=== PATIENT | female | born 1945 | race Caucasian/White ===

== ENCOUNTER 2020-11-20 13:55 | Outpatient (CLI) | payer MEDICARE, SELFPAY ==
--- NOTE | ~2020-11-20 | XR_ITS ---
XR wrist LT min 3V DATE: 11/20/2020 15:03 INDICATION: Left wrist pain TECHNIQUE: 4 views COMPARISON: None FINDINGS: There is osteopenia. No fracture or dislocation, periosteal reaction or bone destruction. There is osteoarthritic change at the first carpometacarpal and third metacarpophalangeal joints and to a lesser extent fourth metacarpophalangeal joint. IMPRESSION: Polyarticular osteoarthritic arthritis Osteopenia Reviewed, dictated and finalized at location B. CTOR OF PUBLICATIONS
--- NOTE | ~2020-11-20 | XR_ITS ---
XR hand RT min 3V DATE: 11/20/2020 15:03 INDICATION: Pain and swelling TECHNIQUE: 3 views of right hand COMPARISON: None FINDINGS: Diffuse osteopenia. No fracture or dislocation, periosteal reaction or bone destruction. There is polyarticular osteoarthritis involving particularly the first carpometacarpal and third meta carpal phalangeal joints, with involvement of the remaining metacarpophalangeal joints and multiple i nterphalangeal joints including particularly the first digit and the proximal and distal interphalang eal joints of the second and fifth digits. IMPRESSION: Polyarticular osteoarthritic arthritis Osteopenia Reviewed, dictated and finalized at location B. ITY INSTRUCTOR
--- NOTE | ~2020-11-20 | XR_ITS ---
XR knee RT 3V DATE: 11/20/2020 15:03 INDICATION: Right knee pain TECHNIQUE: [place], AP and lateral views COMPARISON: None FINDINGS: Moderate osteopenia. There is mild loss of joint knee joint space and mild periarticular spurring at the medial compartmen t consistent with osteoarthritis. No fracture, dislocation, joint effusion. No periosteal reaction or bone destruction. IMPRESSION: Osteopenia Osteoarthritis involving primarily the medial compartment Reviewed, dictated and finalized at location B. MANAGER
--- NOTE | ~2020-11-20 | XR_ITS ---
XR hand LT min 3V DATE: 11/20/2020 15:03 INDICATION: Left hand pain TECHNIQUE: 3 views COMPARISON: None FINDINGS: Moderate osteopenia. There is osteoarthritic change at the first carpometacarpal and particularly the third metacarpophala ngeal and to a lesser extent fourth metacarpophalangeal joints. Osteoarthritic changes are noted at m ultiple interphalangeal joints as well. No fracture, dislocation, periosteal reaction or bone destruction. No erosive change or chondrocalcin osis is detected. IMPRESSION: Polyarticular osteoarthritis Osteopenia Reviewed, dictated and finalized at location B. L CLEANER
--- NOTE | ~2020-11-20 | XR_ITS ---
XR wrist RT min 3V DATE: 11/20/2020 15:03 INDICATION: Right wrist pain TECHNIQUE: 4 views COMPARISON: None FINDINGS: There is osteoarthritic change at the first carpometacarpal joint and particularly the thir d metacarpophalangeal joint. Diffuse osteopenia. No fracture or dislocation, periosteal reaction or bone destruction is detected. IMPRESSION: Osteopenia Osteoarthritis Reviewed, dictated and finalized at location B. LE MAKER IMPRESSION: Osteopenia Osteoarthritis
--- NOTE | ~2020-11-20 | XR_ITS ---
XR knee LT 3V DATE: 11/20/2020 15:03 INDICATION: Left knee pain TECHNIQUE: [place], AP and lateral views COMPARISON: None FINDINGS: There is distention of the suprapatellar bursa consistent with joint effusion. There is mild particular spurring at the patellofemoral and medial and lateral compartments. Mild crystal nt space narrowing at the patellofemoral and to a lesser extent medial compartments. Moderate osteopenia. No fracture, dislocation, periosteal reaction or bone destruction. No radiopaque intra-articular loose body or chondrocalcinosis. IMPRESSION: Knee joint effusion Mild to moderate tricompartment osteoarthritis Reviewed, dictated and finalized at location B. PUMP OPERATOR
--- NOTE | ~2020-11-20 | XR_ITS ---
XR_CERV2-3V_CR DATE: 11/20/2020 15:03 INDICATION: Neck pain and swelling TECHNIQUE: AP, open-mouth, lateral views COMPARISON: None FINDINGS: There is reversal of cervical curvature. C1 and C2 are normally aligned and the odontoid process is intact. There is approximately 1.8 mm anterolisthesis at C2-3. Mild degenerative disease at C3-4. Moderate degenerative disc disease and minimal retrolisthesis at C4-5. Moderately severe degenerative disc disease and mild retrolisthesis at C5-6. Moderately severe degenerative disc disease at C6-7. Moderate degenerative disease at C7-T1. There is degenerative change at the apophyseal joints throughout the cervical spine. There is promine nt uncovertebral joint spurring of the mid and lower cervical spine. Elongated C7 transverse processes, especially on the left. IMPRESSION: Reversal of cervical curvature Extensive degenerative change Reviewed, dictated and finalized at Location A. Reviewed, dictated and finalized at location B. DRIER
[2020-11-20 14:22] LABS: Basophils Absolute Auto 0.03 K/mm3 (0.00-0.10); Basophils Percent Auto 0.5 % (0.0-1.0); Eosinophils Absolute Auto 0.06 K/mm3 (0.02-0.50); Hematocrit 31.1 % (35.0-42.0); Hemoglobin 10.5 g/dL (11.7-13.8); Immature Granulocyte Absolute 0.02 K/mm3 (0.00-0.00); Immature Granulocyte Percent A 0.3 % (0.0-0.0); Lymphocytes Absolute Auto 0.59 K/mm3 (1.10-4.50); Lymphocytes Percent Auto 9.5 % (18.0-42.0); Mean Corpuscular HGB Conc 33.8 g/dL (32.0-36.0); Mean Corpuscular Hemoglobin 28.7 pg (27.0-31.0); Mean Platelet Volume 9.9 fl (9.2-11.8); Monocytes Absolute Auto 0.59 K/mm3 (0.10-0.90); Monocytes Percent Auto 9.5 % (2.0-11.0); Neutrophils Absolute Auto 4.9 K/mm3 (1.7-7.2); Neutrophils Percent Auto 79.2 % (50.0-70.0); Platelet Count Result 258 K/mm3 (150-420); Red Blood Count 3.66 M/mm3 (4.20-5.40); Red Cell Distribution Width 12.5 % (11.6-14.4); White Blood Count 6.2 K/mm3 (4.8-10.8)
[2020-11-20 14:26] LABS: Add Urine Microscopic? YES; Appearance Urine Clear (Clear); Bilirubin Urine Negative (Negative); Blood Urine 1+ (Negative); Color Urine Yellow (Yellow); Glucose Urine UA Negative (Negative); Ketones Urine Negative (Negative); Leukocyte Esterase Ur Negative (Negative); Nitrate Urine Negative (Negative); Protein Urine Negative (Negative); Urobilinogen Urine 0.2 mg/dL (0.2-1.0)
[2020-11-20 14:32] LABS: RBC Urine 0-2 /hpf (0-2); Squamous Epithelial Cell Urine Rare /hpf (Few); WBC Urine 0-3 /hpf (0-3)
[2020-11-20 14:33] LABS: Bacteria Urine Trace /hpf
[2020-11-20 14:58] LABS: Rheumatoid Factor Screen Negative (Negative)
[2020-11-20 15:15] LABS: Alanine Aminotransferase 14 U/L (14-59); Albumin Level 3.6 g/dL (3.4-5.0); Alkaline Phosphatase 83 U/L (46-116); Anion Gap 10 mmol/L (8-16); Aspartate Amino Transferase 15 U/L (15-37); Bilirubin,Total 0.3 mg/dL (0.00-1.00); Blood Urea Nitrogen 16 mg/dL (7-18); CRP 7.3 mg/dL (0.0-0.9); Carbon Dioxide 28 mmol/L (21-32); Chloride 96 mmol/L (98-108); Estimated Glomerular Filt Rate > 60; Free T3 2.32 pg/mL (2.18-3.98); Free T4 Free Thyroxine 1.06 ng/dL (0.76-1.46); Glucose 104 mg/dL (70-99); Osmolality Calculated 279 mOsm/kg (285-295); Potassium 4.6 mmol/L (3.5-5.1); Sodium 134 mmol/L (136-145); Thyroid Stimulating Hormone 0.83 uIU/mL (0.36-3.74); Total Protein 7.1 g/dL (6.4-8.2); Uric Acid 3.1 mg/dL (2.6-6.0)
[2020-11-20 15:24] LABS: Erythrocyte Sedimentation Rate 50 mm/hr (0-20)
[2020-11-20 16:44] LABS: Immature Reticulocyte Fraction 11.4 % (2.0-16.52); Reticulocyte Percent 1.25 % (0.50-1.50); Reticulocytes Absolute 0.05 M/mm3 (0.02-0.1)
[2020-11-20 17:19] LABS: Ferritin 206 ng/mL (8-252); Iron 22 ug/dL (50-170); Percent Iron Saturation 7 % (12-57); Vitamin B12 336 pg/mL (193-986)
[2020-11-23 07:21] LABS: Red Blood Cell Folate 994 ng/mL RBC (>280)
[2020-11-23 11:21] LABS: Anti Cyclic Citrullinated Pept 23 Units (<20)
[2020-11-23 20:34] LABS: Lyme Disease Ab (IgM), Blot Positive (Negative); Lyme Disease Ab(IgG), Blot Negative (Negative)
[2020-11-27 21:10] LABS: EBV Nuclear Ab Antibody <18.00 U/mL (<18.00); EBV Nuclear Ab Interpretation Negative; EBV Virus Capsid Ag IgG Ab <18.00 U/mL (<18.00); EBV Virus Capsid Ag IgM Ab <36.00 U/mL (<36.00)
== END 2020-11-20 13:56 | disposition home or self-care (01) ==
PROVIDERS: PCP Internal Medicine; Visit Provider Internal Medicine
DX: M25.562 Pain in left knee (principal); M25.561 Pain in right knee; M25.532 Pain in left wrist; M25.531 Pain in right wrist; M25.542 Pain in joints of left hand; M25.541 Pain in joints of right hand; M79.89 Other specified soft tissue disorders; M54.9 Dorsalgia, unspecified; R53.83 Other fatigue; D64.9 Anemia, unspecified
CPT/HCPCS: 36415; 72040; 73110; 73130; 73562; 80053; 81001; 82607; 82728; 82747; 83540; 83550; 84439; 84443; 84481; 84550; 85025; 85046; 85652; 86038; 86140; 86200; 86430; 86617; 86664; 86665; 86900; 86901

== ENCOUNTER 2020-12-23 15:05 | Outpatient (CLI) | payer MEDICARE, SELFPAY ==
[2020-12-23 15:23] LABS: Basophils Absolute Auto 0.03 K/mm3 (0.00-0.10); Basophils Percent Auto 0.5 % (0.0-1.0); Eosinophils Absolute Auto 0.08 K/mm3 (0.02-0.50); Eosinophils Percent Auto 1.4 % (1.0-6.0); Hematocrit 28.1 % (35.0-42.0); Hemoglobin 9.1 g/dL (11.7-13.8); Immature Granulocyte Absolute 0.02 K/mm3 (0.00-0.00); Immature Granulocyte Percent A 0.4 % (0.0-0.0); Lymphocytes Absolute Auto 0.74 K/mm3 (1.10-4.50); Lymphocytes Percent Auto 13.1 % (18.0-42.0); Mean Corpuscular HGB Conc 32.4 g/dL (32.0-36.0); Mean Corpuscular Hemoglobin 27.2 pg (27.0-31.0); Mean Corpuscular Volume 84.1 fL (78.0-102.0); Mean Platelet Volume 8.4 fl (9.2-11.8); Monocytes Absolute Auto 0.63 K/mm3 (0.10-0.90); Monocytes Percent Auto 11.2 % (2.0-11.0); Neutrophils Absolute Auto 4.1 K/mm3 (1.7-7.2); Neutrophils Percent Auto 73.4 % (50.0-70.0); Platelet Count Result 334 K/mm3 (150-420); Red Blood Count 3.34 M/mm3 (4.20-5.40); Red Cell Distribution Width 12.8 % (11.6-14.4); White Blood Count 5.6 K/mm3 (4.8-10.8)
[2020-12-23 15:25] LABS: Appearance Urine Clear (Clear); Bilirubin Urine Negative (Negative); Color Urine Yellow (Yellow); Glucose Urine UA Negative (Negative); Ketones Urine Trace (Negative); Leukocyte Esterase Ur Trace (Negative); Nitrate Urine Negative (Negative); Protein Urine Negative (Negative); Specific Grav Ur >= 1.030 (1.010-1.020); Urobilinogen Urine 0.2 mg/dL (0.2-1.0); pH Urine 5.5 (5.0-8.0)
[2020-12-23 15:45] LABS: Add Urine Microscopic? YES; Bacteria Urine 2+ /hpf; Blood Urine Trace-Intact (Negative); RBC Urine 0-2 /hpf (0-2); Squamous Epithelial Cell Urine Few /hpf (Few)
[2020-12-23 16:29] LABS: Erythrocyte Sedimentation Rate 60 mm/hr (0-20)
[2020-12-23 17:11] LABS: Alanine Aminotransferase 19 U/L (14-59); Albumin Level 3.2 g/dL (3.4-5.0); Alkaline Phosphatase 79 U/L (46-116); Anion Gap 9 mmol/L (8-16); Aspartate Amino Transferase 20 U/L (15-37); Bilirubin,Total 0.4 mg/dL (0.00-1.00); Blood Urea Nitrogen 17 mg/dL (7-18); CRP 9.6 mg/dL (0.0-0.9); Calcium 8.9 mg/dL (8.5-10.1); Carbon Dioxide 28 mmol/L (21-32); Chloride 96 mmol/L (98-108); Creatine Kinase 39 U/L (26-192); Estimated Glomerular Filt Rate > 60; Ferritin 271 ng/mL (8-252); Glucose 86 mg/dL (70-99); Iron 19 ug/dL (50-170); Osmolality Calculated 276 mOsm/kg (285-295); Percent Iron Saturation 7 % (12-57); Potassium 4.7 mmol/L (3.5-5.1); Sodium 133 mmol/L (136-145); Total Protein 6.9 g/dL (6.4-8.2)
[2020-12-25 21:01] LABS: Lyme Disease Ab (IgM), Blot Negative (Negative); Lyme Disease Ab(IgG), Blot Negative (Negative)
[2020-12-26 21:10] LABS: Aldolase 3.5 U/L (<=8.1)
[2020-12-30 09:10] LABS: Cyclic Citrullinated Peptide <16
== END 2020-12-23 15:06 | disposition home or self-care (01) ==
LOC: CHSLAB 15:07
PROVIDERS: PCP Internal Medicine; Visit Provider Internal Medicine
DX: I48.92 Unspecified atrial flutter (principal); M25.50 Pain in unspecified joint; D50.9 Iron deficiency anemia, unspecified
CPT/HCPCS: 36415; 80053; 81001; 82085; 82550; 82728; 83540; 83550; 85025; 85652; 86140; 86617

== ENCOUNTER 2020-12-25 10:53 | Outpatient (CLI) | payer MEDICARE, SELFPAY ==
[2020-12-25 10:59] LABS: Occult Blood Negative (Negative)
== END 2020-12-25 10:54 | disposition home or self-care (01) ==
LOC: CHSLAB 10:54
PROVIDERS: PCP Internal Medicine; Visit Provider Internal Medicine
DX: D50.9 Iron deficiency anemia, unspecified (principal)
CPT/HCPCS: 82272

== ENCOUNTER 2020-12-26 09:15 | Outpatient (CLI) | payer MEDICARE, SELFPAY ==
--- NOTE | ~2020-12-26 | CT_ITS ---
EXAMINATION: CT chest abdomen pelvis w con EXAM DATE: 12/26/2020 09:45 INDICATION: Weight loss, anemia, fatigue. TECHNIQUE: Spiral CT of the chest, abdomen and pelvis was performed following intravenous injection o f 100 mL Omnipaque 350. Axial, coronal and sagittal images were reviewed. Coronal maximum intensity pixel images of chest reviewed. The dose-length product (DLP) for this examination was 348.45 mGy-c m. The exposure was tailored according to patient size (auto mA exposure control), and iterative rec onstruction (ASIR) was used as additional dose reduction technique. There is no prior study for doris singh. FINDINGS: CHEST: There is 4 mm right middle lobe nodule, axial image 78. Some biapical nodular densities likel y scarring. There is moderate hyperinflation. Mild emphysema. There are no pleural or pericardial ef fusions. Tracheobronchial tree is patent. There is no mediastinal, hilar or axillary lymphadenopa thy. There is no pneumothorax. There is moderate cardiomegaly. There is mild coronary arterial c alcification, arterial sclerosis. ABDOMEN PELVIS: There is hepatomegaly. Spleen is normal in size. Pancreas and adrenal glands are unre markable. Gallbladder is unremarkable. No biliary obstruction. Portal and splenic veins are patent . Kidneys enhance symmetrically. There is no hydronephrosis. The uterus is anteverted and morphol ogically normal. There are dilated bilateral gonadal veins, larger on the left, could indicate pelvic congestion syndrome. The bladder is unremarkable. There is no retroperitoneal or pelvic lymphadeno xu. There is mild scattered arteriosclerotic disease. The appendix is not positively visualized. There is no pericecal inflammatory change to suggest appe ndicitis. There is mild scattered colonic diverticulosis. There is no adjacent inflammatory change t o suggest diverticulitis. The stomach and small bowel are unremarkable. There is expected amount of colonic stool. No free intraperitoneal gas. There are no osteoblastic or osteolytic lesions ident ified. There is mild lumbar dextroscoliosis. IMPRESSION: 1. Right middle lobe 4 mm nodule most likely postinfectious. Optional one-year follow-up CT. 2. Dilated gonadal veins, can be seen with pelvic congestion syndrome. 3. Moderate hyperinflation. Mild emphysema. 4. Moderate cardiomegaly. 5. Mild colonic diverticulosis. 6. Hepatomegaly. Reviewed, dictated and finalized at location A.
== END 2020-12-26 09:16 | disposition home or self-care (01) ==
LOC: CHSIMG 09:16
PROVIDERS: PCP Internal Medicine; Visit Provider Internal Medicine
DX: R63.4 Abnormal weight loss (principal); K57.30 Diverticulosis of large intestine without perforation or abscess without bleeding; R16.0 Hepatomegaly, not elsewhere classified; I51.7 Cardiomegaly; R91.1 Solitary pulmonary nodule
CPT/HCPCS: 71260; 74177; Q9967

== ENCOUNTER 2020-12-31 12:29 | Outpatient (CLI) | payer MEDICARE, SELFPAY ==
[2020-12-31] MEDS: IRON SUCROSE COMPLEX 300 MG in SODIUM CHLORIDE 0.9% IV 250 ML 125 MG IVPB (13:35)
[2020-12-31 13:44] VITALS: BP 114/69; PULSE 72; RESP 14; TEMP 36.3; O2SAT 98
--- NOTE | 2020-12-31 15:12 | PC.NURSE ---
infusion complete, IV site discontinued at this time, site clear, ambulatory on discharge
== END 2020-12-31 12:30 | disposition home or self-care (01) ==
LOC: CHSTREATRM 12:31
PROVIDERS: PCP Internal Medicine; Visit Provider Internal Medicine
DX: D50.9 Iron deficiency anemia, unspecified (principal)
CPT/HCPCS: 96365; 96366; J1756; J7050

== ENCOUNTER 2021-01-07 10:42 | Outpatient (CLI) | payer MEDICARE, SELFPAY ==
[2021-01-07 11:17] VITALS: BP 120/65; PULSE 72; RESP 14; TEMP 36.1; O2SAT 99
[2021-01-07] MEDS: IRON SUCROSE COMPLEX 300 MG in SODIUM CHLORIDE 0.9% IV 235 ML 125 MG IVPB (11:22)
--- NOTE | 2021-01-07 13:39 | PC.NURSE ---
Patient tolerated #2 of 3 of IV Venofer infusion. No concerns voiced. Safe exit of hospital. Will return next Wednesday01/15/21.
== END 2021-01-07 10:43 | disposition home or self-care (01) ==
LOC: CHSTREATRM 10:44
PROVIDERS: PCP Internal Medicine; Visit Provider Internal Medicine
DX: D50.9 Iron deficiency anemia, unspecified (principal)
CPT/HCPCS: 96365; 96366; J1756; J7050

== ENCOUNTER 2021-01-15 13:30 | Outpatient (CLI) | payer MEDICARE, SELFPAY ==
--- NOTE | 2021-01-15 13:40 | PC.NURSE ---
Here for OP infusion
[2021-01-15] MEDS: IRON SUCROSE COMPLEX 300 MG in SODIUM CHLORIDE 0.9% IV 250 ML 125 MG IVPB (14:07)
== END 2021-01-15 13:31 | disposition home or self-care (01) ==
LOC: CHSTREATRM 13:32
PROVIDERS: PCP Internal Medicine; Visit Provider Internal Medicine
DX: D50.9 Iron deficiency anemia, unspecified (principal)
CPT/HCPCS: 96365; 96366; J1756; J7050

== ENCOUNTER 2021-01-22 13:31 | Outpatient (CLI) | payer MEDICARE, SELFPAY ==
[2021-01-22 13:40] LABS: Basophils Absolute Auto 0.02 K/mm3 (0.00-0.10); Basophils Percent Auto 0.3 % (0.0-1.0); Eosinophils Absolute Auto 0.06 K/mm3 (0.02-0.50); Eosinophils Percent Auto 0.9 % (1.0-6.0); Hematocrit 29.7 % (35.0-42.0); Hemoglobin 9.3 g/dL (11.7-13.8); Immature Granulocyte Absolute 0.04 K/mm3 (0.00-0.00); Immature Granulocyte Percent A 0.6 % (0.0-0.0); Lymphocytes Absolute Auto 0.55 K/mm3 (1.10-4.50); Mean Corpuscular HGB Conc 31.3 g/dL (32.0-36.0); Mean Corpuscular Hemoglobin 26.3 pg (27.0-31.0); Mean Corpuscular Volume 84.1 fL (78.0-102.0); Monocytes Absolute Auto 0.51 K/mm3 (0.10-0.90); Monocytes Percent Auto 7.4 % (2.0-11.0); Neutrophils Absolute Auto 5.7 K/mm3 (1.7-7.2); Neutrophils Percent Auto 82.8 % (50.0-70.0); Platelet Count Result 412 K/mm3 (150-420); Red Blood Count 3.53 M/mm3 (4.20-5.40); Red Cell Distribution Width 15.3 % (11.6-14.4); White Blood Count 6.9 K/mm3 (4.8-10.8)
[2021-01-22 14:57] LABS: Iron 18 ug/dL (50-170); Percent Iron Saturation 7 % (12-57)
[2021-01-22 15:25] LABS: Ferritin > 1000 ng/mL (8-252)
== END 2021-01-22 13:32 | disposition home or self-care (01) ==
LOC: CHSLAB 13:33
PROVIDERS: PCP Internal Medicine; Visit Provider Internal Medicine
DX: D50.9 Iron deficiency anemia, unspecified (principal)
CPT/HCPCS: 36415; 82728; 83540; 83550; 85025

== ENCOUNTER 2021-05-21 12:16 | Outpatient (CLI) | payer MEDICARE, SELFPAY ==
[2021-05-21 12:32] LABS: Basophils Absolute Auto 0.02 K/mm3 (0.00-0.10); Basophils Percent Auto 0.2 % (0.0-1.0); Hematocrit 35.4 % (35.0-42.0); Hemoglobin 10.9 g/dL (11.7-13.8); Immature Granulocyte Absolute 0.09 K/mm3 (0.00-0.00); Immature Granulocyte Percent A 0.7 % (0.0-0.0); Immature Reticulocyte Fraction 8.4 % (2.0-16.52); Lymphocytes Absolute Auto 0.51 K/mm3 (1.10-4.50); Lymphocytes Percent Auto 4.1 % (18.0-42.0); Mean Corpuscular HGB Conc 30.8 g/dL (32.0-36.0); Mean Corpuscular Hemoglobin 24.7 pg (27.0-31.0); Mean Corpuscular Volume 80.3 fL (78.0-102.0); Mean Platelet Volume 8.9 fl (9.2-11.8); Monocytes Absolute Auto 0.38 K/mm3 (0.10-0.90); Monocytes Percent Auto 3.1 % (2.0-11.0); Neutrophils Absolute Auto 11.4 K/mm3 (1.7-7.2); Neutrophils Percent Auto 91.9 % (50.0-70.0); Platelet Count Result 308 K/mm3 (150-420); Red Blood Count 4.41 M/mm3 (4.20-5.40); Red Cell Distribution Width 22.4 % (11.6-14.4); Reticulocyte Hemoglobin Conten 37.7 pg (28.0-35.0); Reticulocyte Percent 1.41 % (0.50-1.50); Reticulocytes Absolute 0.06 M/mm3 (0.02-0.1); White Blood Count 12.4 K/mm3 (4.8-10.8)
[2021-05-21 13:27] LABS: Alanine Aminotransferase 30 U/L (14-59); Albumin Level 3.8 g/dL (3.4-5.0); Alkaline Phosphatase 73 U/L (46-116); Anion Gap 8 mmol/L (8-16); Aspartate Amino Transferase 13 U/L (15-37); Bilirubin,Total 0.3 mg/dL (0.00-1.00); Blood Urea Nitrogen 23 mg/dL (7-18); Calcium 9.1 mg/dL (8.5-10.1); Carbon Dioxide 29 mmol/L (21-32); Chloride 102 mmol/L (98-108); Estimated Glomerular Filt Rate > 60; Ferritin 369 ng/mL (8-252); Glucose 95 mg/dL (70-99); Iron 74 ug/dL (50-170); Osmolality Calculated 291 mOsm/kg (285-295); Potassium 4.3 mmol/L (3.5-5.1); Sodium 139 mmol/L (136-145); Total Protein 7.4 g/dL (6.4-8.2)
[2021-05-23 14:49] LABS: Free T3 1.88 pg/mL (2.18-3.98); Free T4 Free Thyroxine 0.87 ng/dL (0.76-1.46)
== END 2021-05-21 12:17 | disposition home or self-care (01) ==
LOC: CHSLAB 12:18
PROVIDERS: PCP Internal Medicine; Visit Provider Internal Medicine
DX: D50.9 Iron deficiency anemia, unspecified (principal); M05.9 Rheumatoid arthritis with rheumatoid factor, unspecified; R63.4 Abnormal weight loss
CPT/HCPCS: 36415; 80053; 82728; 83540; 84439; 84443; 84481; 85025; 85046

== ENCOUNTER 2021-05-26 12:32 | Outpatient (CLI) | payer MEDICARE, SELFPAY ==
--- NOTE | ~2021-05-26 | DEXA_ITS ---
Bone Density Report Name: Enedina Mehta Age: 76 Sex: Female Ethnicity: White Date of : 1945 Indication: osteopenia; height loss; rheumatoid arthritis; secondary osteoporosis; Referring Provider: Eugenia Spear Study: Bone densitometry was performed. Exam Date: May 26, 2021 Accession number: [id number] Bone Density: Region BMD T-score Z-score Classification AP Spine(L1-L4) 0.865 -1.7 0.9 Osteopenia Femoral Neck (Left) 0.662 -1.7 0.5 Osteopenia Total Hip (Left) 0.690 -2.1 -0.1 Osteopenia Femoral Neck (Right) 0.603 -2.2 0.0 Osteopenia Total Hip (Right) 0.676 -2.2 -0.2 Osteopenia Femoral Neck Mean 0.632 -2.0 0.3 Osteopenia Total Hip Mean 0.683 -2.1 -0.2 Osteopenia World Health Organization criteria for BMD impression classify patients as: Normal (T-score at or above -1.0), Osteopenia (T-score between -1.0 and -2.5), or Osteoporosis (T-score at or below -2.5). 10-year Fracture Risk(1): Major Osteoporotic Fracture 17% Hip Fracture 8.3% Reported Risk Factors: [place] (), Neck BMD=0.603, BMI=17.3, smoking, rheumatoid arthritis, secondary osteoporosis (1) FRAX(R) Version 3.08. Fracture probability calculated for an untreated patient. Fracture probability may be lower if the patient has received treatment. Previous Exams: Region Exam Age BMD T-score BMD Change BMD Change Date g/cm2 vs Baseline vs Previous AP Spine (L1-L4) 05/26/2021 76 0.865 -1.7 -0.143 (-14.2% -0.125 (-12.6% 01/20/2019 73 0.990 -0.5 -0.019 (-1.9%) 0.000 (0.0%) 01/13/2017 71 0.990 -0.5 -0.018 (-1.8%) -0.010 (-1.0%) 11/28/2012 67 1.000 -0.4 -0.009 (-0.8%) -0.008 (-0.8%) 10/22/2008 63 1.009 -0.3 Total Hip(Left) 05/26/2021 76 0.690 -2.1 -0.115 (-14.3% -0.085 (-11.0% 01/20/2019 73 0.775 -1.4 -0.030 (-3.7%) 0.007 (0.9%) 01/13/2017 71 0.768 -1.4 -0.037 (-4.5%) 0.007 (0.9%) 12/21/2014 69 0.762 -1.5 -0.043 (-5.4%) -0.024 (-3.0%) 11/28/2012 67 0.785 -1.3 -0.020 (-2.4%) -0.020 (-2.4%) 10/22/2008 63 0.805 -1.1 Total Hip(Right) 05/26/2021 76 0.676 -2.2 -0.116 (-14.7% -0.057 (-7.8%) 01/20/2019 73 0.733 -1.7 -0.059 (-7.5%) -0.007 (-0.9%) 12/21/2014 69 0.740 -1.7 -0.052 (-6.6%) -0.035 (-4.5%) 11/28/2012 67 0.775 -1.4 -0.017 (-2.2%) -0.017 (-2.2%) 10/22/2008 63 0.792 -1.2 *Denotes significance at 95% confidence level, LSC for AP Spine = 0.022 g/cm2, LSC for Total Hip = 0.027 g/cm2 # Denotes dissimilar scan types or analysis methods Clinical Info
== END 2021-05-26 12:33 | disposition home or self-care (01) ==
LOC: CHSIMG 12:33
PROVIDERS: PCP Internal Medicine; Visit Provider Internal Medicine
DX: M81.0 Age-related osteoporosis without current pathological fracture (principal)
CPT/HCPCS: 77080

== ENCOUNTER 2021-11-24 13:57 | Outpatient (CLI) | payer MEDICARE, SELFPAY ==
[2021-11-24 15:24] LABS: Basophils Percent Auto 0.4 % (0.2-1.2); Eosinophils Percent Auto 0.1 % (0-4.4); Hematocrit 33.1 % (37.0-47.0); Hemoglobin 10.7 g/dL (12.0-15.0); Immature Granulocyte Absolute 0.03 K/mm3 (0.00-0.031); Immature Granulocyte Percent A 0.4 % (0-0.5); Lymphocytes Absolute Auto 0.56 K/mm3 (0.9-3.2); Lymphocytes Percent Auto 7.2 % (18.3-44.2); Mean Corpuscular HGB Conc 32.3 g/dl (32-36); Mean Corpuscular Volume 89.7 fl (80-100); Mean Platelet Volume 8.5 fl (7.4-10.4); Monocytes Absolute Auto 0.6 K/mm3 (0.1-0.6); Monocytes Percent Auto 7.3 % (2.6-8.5); Neutrophils Absolute Auto 6.6 K/mm3 (1.3-6.7); Neutrophils Percent Auto 84.6 % (45.5-73.1); Platelet Count Result 293 k/mm3 (150-375); Red Blood Count 3.69 M/mm3 (4.2-5.4); Red Cell Distribution Width 13.6 % (11.5-14.5); White Blood Count 7.8 K/mm3 (4.5-10.0)
[2021-11-24 15:38] LABS: Albumin Level 4.5 g/dL (3.5-5.1); Anion Gap 10 mmol/L (8-16); Blood Urea Nitrogen 16 mg/dL (7-17); Calcium 9.7 mg/dL (8.4-10.2); Carbon Dioxide 26 mmol/L (22-30); Chloride 100 mmol/L (98-107); Estimated Glomerular Filt Rate > 60; Glucose 107 mg/dL (65-110); Potassium 4.4 mmol/L (3.4-5.0); Sodium 136 mmol/L (137-145)
[2021-11-24 15:39] LABS: Hemoglobin A1C 5.4 % (<5.7)
[2021-11-24 15:41] LABS: Urine Cotinine NEGATIVE
== END 2021-11-24 13:58 | disposition home or self-care (01) ==
LOC: ANHSURGERY 14:01
PROVIDERS: PCP Internal Medicine; Visit Provider Orthopaedic Surgery
DX: Z01.812 Encounter for preprocedural laboratory examination (principal); M16.12 Unilateral primary osteoarthritis, left hip; Z51.81 Encounter for therapeutic drug level monitoring; Z79.899 Other long term (current) drug therapy
CPT/HCPCS: 80048; 80307; 82040; 83036; 85025; 87070

== ENCOUNTER 2021-12-02 17:18 | Outpatient (CLI) | payer MEDICARE, SELFPAY ==
[2021-12-02 18:05] LABS: Ferritin 346 ng/mL (8-252); Iron 14 ug/dL (50-170)
== END 2021-12-02 17:19 | disposition home or self-care (01) ==
LOC: CHSLAB 17:20
PROVIDERS: PCP Internal Medicine; Visit Provider Internal Medicine
DX: D50.9 Iron deficiency anemia, unspecified (principal)
CPT/HCPCS: 36415; 82728; 83540

== ENCOUNTER 2021-12-05 10:09 | Outpatient (CLI) | payer MEDICARE, SELFPAY ==
[2021-12-05] MEDS: IRON SUCROSE COMPLEX 500 MG in SODIUM CHLORIDE 0.9% IV 250 ML 62.5 MG IVPB (10:20)
[2021-12-05 10:25] VITALS: BP 128/65; PULSE 68; RESP 14; TEMP 36.6; O2SAT 97
[2021-12-05 10:28] VITALS: BMI 19.3
--- NOTE | 2021-12-05 13:42 | PC.NURSE ---
Patient here for IV Venofer infusion. Education on med given. No concerns voiced. Has had past infusions of Venofer in the past. IV Venofer infusion administered over 4 hours. SEE MAR. Tolerated well.
--- NOTE | 2021-12-05 14:09 | PC.NURSE ---
Safe exit of hospital.
== END 2021-12-05 10:10 | disposition home or self-care (01) ==
LOC: CHSTREATRM 10:12
PROVIDERS: PCP Internal Medicine; Visit Provider Internal Medicine
DX: D50.9 Iron deficiency anemia, unspecified (principal)
CPT/HCPCS: 96365; 96366; J1756; J7050

== ENCOUNTER 2021-12-08 00:34 | Day surgery (SDC) | payer MEDICARE, SELFPAY ==
[2021-11-24 14:07] VITALS: BMI 19.3
--- NOTE | 2021-11-24 14:30 | PC.NURSE ---
Report to the Outpatient Waiting Room, entrance under the green pavilion located off [facility], at time __0600 on date __12/08/21 . OR Time: 729 . - You and your visitor will be asked a series of questions to screen for COVID 19 for your protection. - A mask is required within the hospital. Preoperative COVID Testing Requirements: No COVID Test needed if: (proof is required; if not received patient will have Rapid Test prior to entry) - Patient has received COVID Vaccine at least 14 days prior to procedure date or - Patient has positive COVID test result within last 90 days of surgery date. COVID Test needed if above criteria is not met If not COVID vaccinated a COVID test must be conducted within 72 hours of surgery and patient is asked to isolate self from time of testing until procedure. You will go to the [facility] for your COVID testing. The [facility] site is located at the corner of [address] [facility]. You will only be called if COVID results are positive and your surgeon may reschedule your elective surgery date. Patients may have clear liquids (water, carbonated beverages, clear teas, apple juice) until 3 hours prior to surgery with a maximum of 20 ounces. - No food from midnight until time of surgery - Infants may have breast milk until 4 hours before surgery, formula 6 hours prior to surgery. - Children will be allowed to drink immediately following surgery. If applicable, please bring a bottle or sippy cup to assist with drinking. Juice, water, soda, and popsicles are readily available. For infants on formula, please bring formula the day of surgery. Pacifiers are allowed. Take the following medications with a SIP of water the morning of surgery: ___FLECAINIDE,PREDNISONE Medications to discontinue per physician ___PT STATES HOLD ELIQUIS 3 DAYS PRE OP AND ALL VITAMINS AND SUPPLEMENTS 3 DAYS PRE OP Date to take last dose_12/04/21 Please no make-up, nail italian, hairspray, perfume, deodorant, or body powder the day of surgery. No jewelry (including any body piercings) or valuables the day of surgery, leave them at home. Please take a shower or bath the night before, or the morning of, surgery with an antibacterial soap. Wear comfortable, loose fitting clothing. Children are encouraged to wear pajamas. - Jewelry must be removed prior to entering the operating room. Rings and piercings that are not removed may be cut off. - The hospital will not accept responsibility for valuables. - Please leave all valuables, including medications, at home the day of surgery. If you are going home after surgery, a licensed water tanker driver must drive you home. - NO public transportation without another adult. - We recommend that an adult stay with you for 24 hours following discharge. - We also recommend that you do not drive, make important decision, drink alcoholic beverages, or take any drugs that were not prescribed by your health care provider for at least 24 hours after your discharge time. For Pediatric surgeries, we recommend two adults accompany the child home (only one inside the building at this time). One visitor will be allowed to accompany the patient into the hospital. Patients visitor will be instructed to remain with patient at all times or leave the building. We will allow the visitor to come back to the postoperative area when patient is ready. Follow any additional instructions given to you from your surgeon. VERBAL/WRITEN instructions given to __PATIENT and asked if any additional questions and then verbalized understanding. Patient advised to call surgeon office or pre surgery nurse liaison [phone] if any additional questions.
[2021-11-24 14:53] VITALS: BP 121/67; PULSE 101; RESP 18; TEMP 36.6; O2SAT 98
--- NOTE | 2021-12-05 07:37 | PM.IMHP ---
H&P: HPI History of Present Illness Date/Time: 12/05/21 07:37 76-year-old female patient of Dr. Spear, presents today for a left total hip arthroplasty anterior approach. Patient is having worsening symptoms over the course of last year and her left. At this point her symptoms are rather severe. She has pain both with walking as well as lying down in bed. She has history of rheumatoid arthritis and is on medication for this. At this point patient feels that her pain is rather severe on a daily basis. It is affecting her daily life. She does have advanced arthritis in the left hip. She feels this point she is ready to proceed with total hip arthroplasty rather continue nonsurgical treatments. Chief Complaint: Left hip DJD Review of Systems Review of Systems: All systems reviewed & are unremarkable except as noted in HPI and below [facility] Social History Social History (System 05/22/21 @ 08:14 by Michael Aggarwal) Smoking status: Never smoker Additional smoking assessment comments: DENIES ANY FORM OF TOBACCO USE Alcohol intake: never Substance use: never Substance use type: does not use Spiritual care concerns: No Meds Home Medications and Allergies Home Medications Medication Instructions Recorded Confirmed Type apixaban [Eliquis] 5 mg PO BID 01/07/21 11/24/21 History flecainide 100 mg PO Q12H 01/07/21 11/24/21 History acetaminophen [Tylenol Arthritis] 650 mg PO Q12H PRN 11/24/21 11/24/21 History calcium carbonate-vitamin D3 1 tablet PO DAILY 11/24/21 11/24/21 History [Calcium 500 + D (D3)] cholecalciferol (vitamin D3) 25 mcg PO DAILY 11/24/21 11/24/21 History hydroxychloroquine 200 mg PO BID 11/24/21 11/24/21 History prednisone 10 mg PO DAILY 11/24/21 11/24/21 History Allergies Allergy/AdvReac Type Severity Reaction Status Date / Time No Known Allergies Allergy Verified 11/24/21 14:08 Exam Narrative: 76-year-old female alert pleasant. She is 5 ft 4 and 119 lb. Patient walks with a significant limp. While lying supine left leg looks about 15 mm shorter on the right. Her left hip flexes to 110 causing posterior thigh and lateral hip pain. Internal rotation 10? external rotation 20? both causing lateral hip pain. Stinchfield maneuver causes anterior knee pain. She has normal abduction strength in lateral position. No tenderness over the greater trochanter. 2+ dorsalis pedis and posterior tibial artery pulse. Normal sensation left lower extremity. Skin around the hip in groin crease are all normal. Resp: Auscultation: clear to auscultation bilaterally Cardio: Rate: regular rate Rhythm: abnormal rhythm Assessment and Plan Additional Plan 68-year-old female who has advanced arthritis of the right hip with rather severe pain on a daily basis. Again she is fairly miserable and feels this point she is ready to proceed with total hip arthroplasty. Surgical procedures well as the risks and complications were discussed in detail and all questions were answered and we will proceed. Patient has seen the floorworker lasting for pre-surgical clearance due to her history of AFib. She did have stress test done, it showed no ST changes normal hand tray killer function. Ejection fraction was 69% negative EKG portion of the stress test as well. She has been cleared. She will stop her Eliquis 3 days prior to surgery. We will plan to use low-dose Eliquis for the 1st 7 days postop and then resume her 5 mg b.i.d.. Patient will see her primary care doctor for pre-surgical clearance as well. Her nasal swab was negative. Hemoglobin 10.7 platelets were 293. Chem panel is all within normal limits creatinine is 0.60. We will also plan to use p.o. antibiotics postoperatively due to her history of rheumatoid arthritis and being on prednisone and Plaquenil.
--- NOTE | 2021-12-05 13:36 | WPDANESEPPF ---
Anes - Initial Pre Proc Eval Procedure: Operation Date: 12/08/21 07:30 Proposed Procedures p Left Total Hip Arthroplasty, Anterior Approach - Malvin Bose MD Date/Time: 12/05/21 13:36 Surgeon: Malvin Bose MD Pre Op Diagnosis: Severe Arthritis Left Hip Patient Data Age: 76 Gender: F Height: 1.68 m Weight: 54.3 kg Last Vital Signs Temp 97.9 F 11/24/21 14:53 Pulse 101 H 11/24/21 14:53 Resp 18 11/24/21 14:53 BP 121/67 11/24/21 14:53 Pulse Ox 98 11/24/21 14:53 Allergies Allergy/AdvReac Type Severity Reaction Status Date / Time No Known Allergies Allergy Verified 12/08/21 06:05 Home Medications Medication Instructions Recorded Confirmed Type apixaban [Eliquis] 5 mg PO BID 01/07/21 12/08/21 History flecainide 100 mg PO Q12H 01/07/21 12/08/21 History acetaminophen [Tylenol Arthritis] 650 mg PO Q12H PRN 11/24/21 12/08/21 History calcium carbonate-vitamin D3 1 tablet PO DAILY 11/24/21 12/08/21 History [Calcium 500 + D (D3)] cholecalciferol (vitamin D3) 25 mcg PO DAILY 11/24/21 12/08/21 History hydroxychloroquine 200 mg PO BID 11/24/21 12/08/21 History prednisone 10 mg PO DAILY 11/24/21 12/08/21 History Patient hx anesthesia problems: none Family hx anesthesia problems: none Results Review: All pre-operative results and documents have been reviewed as part of the pre-operative evaluation. FOR[facility]LY [facility], [facility] Past Medical History Medical History (Updated 12/05/21 @ 13:35 by Sina Franco MD) Heart disease history of atrial flutter Rheumatoid arthritis Social History Social History (System 05/22/21 @ 08:14 by Michael Aggarwal) Smoking status: Never smoker Additional smoking assessment comments: DENIES ANY FORM OF TOBACCO USE Alcohol intake: never Substance use: never Substance use type: does not use Living arrangements: with family Spiritual care concerns: No Anes - Eval Final PreProcedure Day of Procedure 12/05/21 13:36 Patient weight: normal Heart: irregular rhythm Lungs: clear to auscultation Airway: Mallampati scale class II Neurological: alert and oriented Last oral intake: >/= 8 hours ASA classification: III Emergent: no Anesthetic plan: proceed Anesthesia type and monitoring: general ETT and standard monitoring Results Review: All pre-operative results and documents have been reviewed as part of the pre-operative evaluation. Informed Consent: The patient's anesthetic plan and its attendant risks and benefits were discussed with the patient/family/POA. Questions were solicited and answers provided to the satisfaction of the patient/family/POA.
[2021-12-08] VITALS (17 sets, daily range): BP systolic 126–167; BP diastolic 63–91; PULSE 80–105; RESP 10–20; TEMP 36.3–36.9; O2SAT 93–100
--- NOTE | ~2021-12-08 | XR_ITS ---
EXAMINATION: XR surgery orthopedic EXAM DATE: 12/08/2021 10:55 INDICATION: Left hip arthroplasty anterior approach. TECHNIQUE: Fluoroscopy used during left hip arthroplasty performed by Dr. Malvin Bose MD. Radi ologist was not present for the imaging or procedure. Total fluoroscopic time of 48 seconds. The DA P for this procedure was 0.16 mGym2. A total of 3 images sent to PACS from the exam. FINDINGS: 2 captured frontal images demonstrate left hip arthroplasty hardware in expected position. Correlate with procedure note. IMPRESSION: Fluoroscopy used during left hip arthroplasty. Reviewed, dictated and finalized at location A. NOLOGY SPECIALIST
--- NOTE | ~2021-12-08 | XR_ITS ---
EXAMINATION: XR hip LT 1V w AP pelvis DATE: 12/08/2021 11:30 INDICATION: Left hip arthroplasty. Postop. TECHNIQUE: An anteroposterior view of the pelvis and single view of left hip were obtained. COMPARISON: None. FINDINGS: There is a total left hip arthroplasty in near-anatomic alignment. No fracture. There is mo derate right hip osteoarthritis. Osteitis pubis is noted. There is a surgical drain in the left hip s oft tissues. Soft tissue gas is seen, consistent with recent surgery. IMPRESSION: 1. Total left hip arthroplasty in near-anatomic alignment. 2. Moderate right hip osteoarthritis. Reviewed, dictated and finalized at location A. DOCTORAL RESEARCHER
[2021-12-08] MEDS: ACETAMINOPHEN 500 MG TABLET 1000 MG PO ×2 (06:12→18:07)
[2021-12-08] MEDS: LACTATED RINGERS 1,000 ML 30 ML IV CONT ×2 (06:33→11:16)
[2021-12-08] MEDS: TRANEXAMIC ACID 1,000MG/ISO100 1,000 MG/100 ML BAG 200 MG IVPB (07:00)
--- NOTE | 2021-12-08 07:12 | WPDHPUPDATE1 ---
History and Physical Update Update Date/Time: 12/08/21 07:12 History and Physical has been reviewed, including an updated exam of the patient. There are NO changes in the patient's condition. Risks, benefits, and alternatives have been discussed and questions answered. Patient agrees to proceed with procedure.
--- NOTE | 2021-12-08 07:21 | WPDHPUPDATE1 ---
History and Physical Update Update Date/Time: 12/08/21 07:21 History and Physical has been reviewed, including an updated exam of the patient. There are NO changes in the patient's condition. Risks, benefits, and alternatives have been discussed and questions answered. Patient agrees to proceed with procedure.
[2021-12-08] MEDS: ceFAZolin 2 GM/D5W 50 ML 2 GM/50 ML BAG IVPB (07:30)
[2021-12-08] MEDS: ceFAZolin SODIUM 1 GM VIAL 3 GM IRRIGATION (08:19)
[2021-12-08] MEDS: ceFAZolin SODIUM 1 GM VIAL IV PUSH (10:34)
[2021-12-08] MEDS: TRANEXAMIC ACID 1,000 MG/10 ML AMPUL 1000 MG IV PUSH (10:40)
--- NOTE | 2021-12-08 11:04 | W.PM.PROC2 ---
Procedure Note - Detailed Date of Procedure 12/08/21 Pre-op Diagnosis Severe rheumatoid Arthritis Left Hip Post-op Diagnosis Same Procedure Performed Left total hip arthroplasty direct anterior approach Surgeon Malvin Bose MD Loss Prevention Leader Is Stiven Anesthesia General Description of Procedure Patient was brought to the operating room and general anesthesia was administered. The fever padded boots applied she was transferred to the OSI [place] table and the left hip prepped draped usual fashion. She received weight based vancomycin 2 g of Ancef and tranexamic acid preoperatively. She received 8 mg of Decadron preoperatively. A 10 cm longitudinal incision was made starting 3 cm lateral to the ASIS. Dissection was carried through the subcutaneous fat to the fascia over the tensor fascia nishant which was longitudinally incised. This was elevated off the anterior 1/2 the tensor fascia nishant muscle and the interval between TFL and rectus femoris developed. Crossing branches of the ascending lateral femoral circumflex vessels were isolated ligated with suture and divided. The ileocapsularis was prominent in this patient and was elevated off anterior capsule. The hip was abducted internally rotated and the gluteus minimus elevated off the lateral capsule. Standard inverted T capsulotomy was performed. Femoral neck osteotomy was made according to preoperative templating. The bone was on the softer side. The femoral head was removed measured 49 mm diameter. It was mushroom shaped with large marginal osteophytes. It was eburnated at the top. The acetabulum was exposed. 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 Affect when we made the 1st longitudinal incision in the capsule this material herniated out of the capsular incision and there was a large effusion of clear fluid. We debrided the redundant synovium to the extent possible and the acetabulum was exposed and the residual labrum excised. Fat pad and the fovea was removed showing overgrown osteophytes there. The leg was externally rotated and extended with the table hook in place and we resected the lateral tip of the lateral capsule and exposed the piriformis tendon and conjoined tendon an incision was made at the junction which allowed the piriformis to flip posteriorly and some of the conjoined tendon to recess. With the leg back in the neutral position the acetabulum was exposed. A 44 mm Reamer was used to medialized going through the medial osteophyte over the fovea alternating with curetting the remaining bone there and when we had medialized appropriately we went up to a 47 Reamer. This was medialized under fluoroscopic guidance to the proper position. This gave us reaming to the periphery of the acetabular fossa. The 48 trial was difficult to start to seat. We used the 48 Reamer and just barely reamed the periphery where there was some osteophyte and rim left. The 48 pinnacle cup was chosen and this was impacted and did obtain an excellent Press-Fit and seated fully. This was placed at 40? abduction angle and anteversion so that the cup was just under the anterior acetabular osteophyte that was prominent. This left the shell a few mm proud posterior superiorly. Superior osteophyte was left intact. A 35 mm screw was placed in the ilium which obtained very good purchase and the 32 inner diameter acetabular liner was fully seated. The leg was externally rotated extended and the femur broached to a size 5. We could see the broach did have a little wiggle. We trialed with the +5 neck and found that we had a little bit of extra Shuck I felt. The 5 was broached a little below the osteotomy of the neck. I felt that we could and should lengthen a little bit more. We went up to a size 6 broach which had just a little bit of wiggle so the size 7 broach was seated and this was brought down flush with the neck cut and we tri
[2021-12-08] MEDS: fentaNYL CITRATE INJ (*CRX) 100 MCG/2 ML VIAL 25 MCG IV PUSH ×4 (11:42→12:25)
--- NOTE | 2021-12-08 14:03 | PC.NURSE ---
This patient, Enedina Mehta, was admitted to Medical Room 241-. Patient/family oriented to hospital policies and general routines including ID bracelet, bed and alarms, visiting hours, pain management, procedures, bathroom and other care routines, personal items, smoking policy, room service/diet, and visiting hours. Information on how to activate the Rapid Response Team has been discussed. Patient/Family are encouraged to report perceived risks to care and to ask questions if they do not understand what they are told or what they should do.
[2021-12-08] MEDS: HYDROXYCHLOROQUINE SULFATE 200 MG TABLET PO (17:00)
[2021-12-08] MEDS: oxyCODONE HCL (*CRX) 2.5 MG TAB IR PO ×2 (17:00→20:09)
[2021-12-08] MEDS: ONDANSETRON INJ 4 MG/2 ML VIAL IV PUSH (17:00)
[2021-12-08] MEDS: SENNA/DOCUSATE SODIUM TABLET 2 TAB PO (17:00)
[2021-12-08] MEDS: FAMOTIDINE 20 MG TABLET PO (20:09)
[2021-12-08] MEDS: FLECAINIDE ACETATE 100 MG TABLET PO (20:09)
[2021-12-09] MEDS: oxyCODONE HCL (*CRX) 2.5 MG TAB IR PO ×4 (00:02→12:26)
[2021-12-09] MEDS: ACETAMINOPHEN 500 MG TABLET 1000 MG PO ×3 (00:02→12:26)
[2021-12-09 00:06] VITALS: BP 119/72; PULSE 92; RESP 20; TEMP 36.7; O2SAT 98
[2021-12-09 04:06] VITALS: BP 103/60; PULSE 92; RESP 18; TEMP 37; O2SAT 99
[2021-12-09 05:51] LABS: Basophils Percent Auto 0.2 % (0.2-1.2); Hemoglobin 8.7 g/dL (12.0-15.0); Immature Granulocyte Percent A 0.8 % (0-0.5); Lymphocytes Absolute Auto 0.68 K/mm3 (0.9-3.2); Lymphocytes Percent Auto 5.3 % (18.3-44.2); Mean Corpuscular HGB Conc 32.2 g/dl (32-36); Mean Corpuscular Hemoglobin 28.4 pg (26-34); Mean Corpuscular Volume 88.2 fl (80-100); Mean Platelet Volume 8.4 fl (7.4-10.4); Monocytes Absolute Auto 1.2 K/mm3 (0.1-0.6); Monocytes Percent Auto 9.7 % (2.6-8.5); Neutrophils Absolute Auto 10.7 K/mm3 (1.3-6.7); Platelet Count Result 331 k/mm3 (150-375); Red Blood Count 3.06 M/mm3 (4.2-5.4); Red Cell Distribution Width 13.7 % (11.5-14.5); White Blood Count 12.7 K/mm3 (4.5-10.0)
[2021-12-09 06:09] LABS: Anion Gap 6 mmol/L (8-16); Blood Urea Nitrogen 11 mg/dL (7-17); Calcium 8.4 mg/dL (8.4-10.2); Carbon Dioxide 27 mmol/L (22-30); Chloride 94 mmol/L (98-107); Estimated CRCL calculation 56 ml/min; Estimated Glomerular Filt Rate > 60; Glucose 107 mg/dL (65-110); Potassium 4.1 mmol/L (3.4-5.0); Sodium 127 mmol/L (137-145)
--- NOTE | 2021-12-09 06:30 | PM.PNORT ---
Subjective Subjective Date/Time Seen: 12/09/21 06:30 postop day 1 patient is alert pleasant. She was up yesterday working with physical therapy walking to the restroom multiple times and doing well. Pain is well controlled. Her drain is out. Neurovascularly she is intact. Morning labs were noted. She is mildly anemic with a hemoglobin 8.7. Patient is tolerating the knee medial without any symptoms. Her dressing is dry. We will plan to have patient work with physical therapy today if she continues to do well plan on sending her home later this morning or this afternoon Objective Data Vital Signs Vital Signs: Vital Signs - 24 hr 12/08/21 06:43 12/08/21 11:16 12/08/21 11:30 Temperature 36.5 C 36.5 C Pulse Rate 104 H 99 98 Respiratory Rate 16 14 16 Blood Pressure 165/83 H 156/79 H 164/82 H Pulse Oximetry 100 100 100 12/08/21 11:45 12/08/21 12:00 12/08/21 12:15 Temperature Pulse Rate 97 99 89 Respiratory Rate 20 20 16 Blood Pressure 167/81 H 163/91 H 141/81 H Pulse Oximetry 100 100 99 12/08/21 12:30 12/08/21 12:44 12/08/21 13:00 Temperature Pulse Rate 82 85 84 Respiratory Rate 10 L 12 16 Blood Pressure 139/72 147/69 H 139/74 Pulse Oximetry 97 95 93 12/08/21 13:15 12/08/21 13:30 12/08/21 13:57 Temperature 36.4 C L 36.6 C 36.7 C Pulse Rate 80 94 92 Respiratory Rate 14 14 14 Blood Pressure 138/73 133/69 140/63 Pulse Oximetry 94 97 99 12/08/21 15:06 12/08/21 18:50 12/08/21 19:40 Temperature 36.3 C L 36.9 C 36.4 C L Pulse Rate 103 H 102 H 105 H Respiratory Rate 16 14 20 Blood Pressure 163/83 H 126/64 137/73 Pulse Oximetry 99 100 99 12/08/21 20:00 12/08/21 20:09 12/09/21 00:06 Temperature 36.7 C Pulse Rate 105 H 105 H 92 Respiratory Rate 20 20 Blood Pressure 119/72 Pulse Oximetry 99 98 12/09/21 04:06 Temperature 37.0 C Pulse Rate 92 Respiratory Rate 18 Blood Pressure 103/60 Pulse Oximetry 99 Intake/Output Intake/Output: Intake & Output 12/06/21 12/07/21 12/08/21 12/09/21 23:59 23:59 23:59 23:59 Intake Total 1840 50 Output Total 650 610 Balance 1190 -560 Meds/Results Medications: Active Medications Generic Name Dose Route Start Last Admin Trade Name Freq PRN Reason Stop Dose Admin Acetaminophen 1,000 mg 12/08/21 18:00 12/09/21 05:30 Acetaminophen 500 Mg Tablet PO 1,000 mg Q6HR SIMBA Administration Al Hydrox/Mg Hydrox/Simethicone 30 ml 12/08/21 13:09 Mag Hydrox/Al Hydrox/Simeth 30 Ml Udc PO Q6H PRN Indigestion Apixaban 2.5 mg 12/09/21 09:00 Apixaban 2.5 Mg Tablet PO Q12HR SIMBA Celecoxib 100 mg 12/09/21 09:00 Celecoxib 100 Mg Capsule PO DAILY SIMBA Cephalexin HCl 500 mg 12/09/21 12:00 Cephalexin 500 Mg Capsule PO Q6HR SIMBA Famotidine 20 mg 12/08/21 21:00 12/08/21 20:09 Famotidine 20 Mg Tablet PO 20 mg Q12HR SIMBA Administration Flecainide Acetate 100 mg 12/08/21 21:00 12/08/21 20:09 Flecainide Acetate 100 Mg Tablet PO 100 mg Q12HR SIMBA Administration Hydroxychloroquine Sulfate 200 mg 12/08/21 17:00 12/08/21 17:00 Hydroxychloroquine Sulfate 200 Mg Tablet PO 200 mg BID SIMBA Administration Hydroxyzine HCl 50 mg 12/08/21 13:09 Hydroxyzine Hcl 25 Mg Tablet PO Q4H PRN Itching Vancomycin HCl 1,000 mg in 250 mls @ 250 mls/hr 12/08/21 19:00 12/09/21 06:11 Vancomycin 1,000 Mg/D5w 250 Ml IVPB 12/09/21 07:59 250 mls/hr Q12H SIMBA Administration Cefazolin Sodium 1 gm in 50 mls @ 100 mls/hr 12/08/21 16:00 12/09/21 00:31 Ancef 1 Gm/D5w 50 Ml Pm IVPB 12/09/21 08:29 Infused Q8H SIMBA Infusion Magnesium Hydroxide 30 ml 12/08/21 13:09 Magnesium Hydroxide Susp 30 Ml Udc PO BID PRN Constipation Morphine Sulfate 2 mg 12/08/21 13:09 Morphine Sulfate (*Crx) 2 Mg/Ml Inj IV PUSH Q3H PRN Pain Rated 7-10 Naloxone HCl 0.1 mg 12/08/21 13:09 Naloxone Hcl 0.4 Mg/Ml Vial IV PUSH Q2M PRN Opiate Reversal O
--- NOTE | 2021-12-09 06:37 | PM.DS ---
DS: Admitting Diagnosis Discharge Date 12/09/2021 Admitting Diagnosis Left hip DJD DS: Summary Hospital Course Hospital Course: Stable Time Spent with Patient Time attestation: Total time spent providing and/or coordinating discharge services: 76-year-old female who underwent left total hip arthroplasty anterior approach on 12/08, underwent procedure without any complications. Postoperatively she was up walking with physical therapy the day of surgery. She is weight-bearing as tolerated. Postop day 1 she was alert pleasant. Her pain is well controlled with scheduled Tylenol as well as the oxycodone 5 mg. She is on low-dose Eliquis for a week and then she will resume her normal 5 mg dosing that she is on chronically. When I have her on Celebrex 100 mg while she is on the low-dose Eliquis for heteroctopic bone prophylaxis. Patient's drain is out. The dressing is dry. Neurovascularly she is intact. She is going to go home on 12/09/2021. Patient resume her taper dosing of prednisone. We are having her take Pepcid 20 mg b.i.d. for the 1st week and a half while she is taking the prednisone as well as Celebrex for stomach protection. She is also going home on a 10 day course of Keflex because of her increased risk because of being on the prednisone. Overall patient is doing well. She was anemic postop day 1 and hemoglobin is 8.7 however she was having no symptoms from this. Patient was advised any questions or concerns she is to call the office otherwise we will see her at her appointment dates. She is also going home on Senokot and MiraLax for constipation. DS: Data Data Completed and Pending Labs on day of discharge: Labs from last 24 hours 12/09/21 12/09/21 12/08/21 05:14 05:14 06:26 WBC 12.7 H RBC 3.06 L Hgb 8.7 L Hct 27.0 L MCV 88.2 MCH 28.4 MCHC 32.2 RDW 13.7 Plt Count 331 MPV 8.4 Immature Gran % (Auto) 0.8 H Neut % (Auto) 84.0 H Lymph % (Auto) 5.3 L Rush % (Auto) 9.7 H Eos % (Auto) 0.0 Baso % (Auto) 0.2 Lymph # (Auto) 0.68 L Rush # (Auto) 1.2 H Eos # (Auto) 0.0 Baso # (Auto) 0.0 Abs Immat Gran (auto) 0.10 H Absolute Neuts (auto) 10.7 H Absolute Nucleated RBC 0.0 Nucleated RBC % 0.0 Sodium 127 L Potassium 4.1 Chloride 94 L Carbon Dioxide 27 Anion Gap 6 L BUN 11 D Creatinine 0.60 L Estim Creat Clear Calc 56 Estimated GFR > 60 Glucose 107 Calcium 8.4 Blood Type AB Positive Antibody Screen Negative Discharge Plan Discharge Patient Disposition: Home, Self-Care Discharge Instructions: MALVIN BOSE M.D [facility] [address] [place] [address] POST-OPERATIVE DISCHARGE INSTRUCTIONS ANTERIOR TOTAL HIP ARTHROPLASTY 1. Move toes/feet up and down every hour while awake. 2. Be up walking every hour while awake. 3. Use cane in hand opposite of side of hip surgery or walker as comfort allows. Avoid sitting in a chair unless eating, receiving visitors or using the toilet. 4. When resting, lie on back with leg elevated above heart to minimize swelling. Significant swelling could indicate a blood clot and if this occurs, call the office (or go to the ER) to have a venous ultrasound performed. 5. Wound Care: Keep dry sponge on wound for 2 weeks. Use minimal tape. 6. Follow weight bearing status as instructed. 7. May shower with dressing off. Stand Alone Forms: General Discharge Instructions Follow-up/Referrals: Malvin Bose MD [Physician] - Keep Reg. Scheduled Appt. Discharge Medications: New polyethylene glycol 3350 [Miralax] 17 gram Powder In Packet 17 g PO QAM Qty: 30 RF: 0 sennosides-docusate sodium [Senokot-S] 8.6-50 mg Tablet 2 tab PO BID Qty: 60 RF: 0 acetaminophen 500 mg Tablet 1,000 mg PO Q6HR Qty: 90 RF: 0 famotidine 20 mg Tablet 20 mg PO Q12HR Qty: 20 RF: 0 cephal
[2021-12-09] MEDS: polyethylene glycoL 3350 17 GM POWD.PACK PO (08:02)
[2021-12-09] MEDS: CHOLECALCIFEROL 1,000 UNITS TABLET 1000 UNITS PO (08:03)
[2021-12-09] MEDS: SENNA/DOCUSATE SODIUM TABLET 2 TAB PO (08:03)
[2021-12-09] MEDS: FAMOTIDINE 20 MG TABLET PO (08:03)
[2021-12-09] MEDS: FLECAINIDE ACETATE 100 MG TABLET PO (08:03)
[2021-12-09] MEDS: CELECOXIB 100 MG CAPSULE PO (08:03)
[2021-12-09] MEDS: HYDROXYCHLOROQUINE SULFATE 200 MG TABLET PO (08:04)
[2021-12-09] MEDS: predniSONE 10 MG TABLET PO (08:05)
[2021-12-09] MEDS: APIXABAN 2.5 MG TABLET PO (08:05)
[2021-12-09 09:41] VITALS: BP 110/55; PULSE 94; RESP 16; TEMP 36.8; O2SAT 98
[2021-12-09] MEDS: CEPHALEXIN 500 MG CAPSULE PO (12:26)
[2021-12-09 14:02] VITALS: BP 111/58; PULSE 88; RESP 14; TEMP 36.4; O2SAT 99
== END 2021-12-09 14:51 | disposition home or self-care (01) ==
LOC: ANHSURGERY 06:18 → ANH2MED 13:32
PROVIDERS: Physician Assistant Surgical; PCP Internal Medicine; Visit Provider Orthopaedic Surgery
PROC: (CPT 27130; principal; 2021-12-08 07:30)
DX: M06.852 Other specified rheumatoid arthritis, left hip (principal); I51.9 Heart disease, unspecified; Z79.01 Long term (current) use of anticoagulants
CPT/HCPCS: 27130; 36415; 73501; 80048; 80307; 82040; 83036; 85025; 86850; 86900; 86901; 87070; 97110; 97116; 97161; 97165; 97530; 97535; A9270; C1776; J0171; J0690; J1100; J1170; J1885; J2250; J2270; J2405; J2704; J2710; J2795; J3010; J3370; J7120; J7512

== ENCOUNTER 2022-02-06 11:21 | Outpatient (CLI) | payer MEDICARE, SELFPAY ==
--- NOTE | ~2022-02-06 | XR_ITS ---
EXAMINATION: XR knee LT 2V DATE: 02/06/2022 11:51 INDICATION: Multiple joint pain. TECHNIQUE: 2 views of left knee were obtained. COMPARISON: Left knee radiographs 11/20/2020 FINDINGS: Bone alignment is normal. No fracture. There is mild tricompartmental osteoarthritis charac terized by tiny osteophytes. No joint space narrowing. No knee joint effusion. IMPRESSION: 1. Mild left knee osteoarthritis. Reviewed, dictated and finalized at location A.
--- NOTE | ~2022-02-06 | XR_ITS ---
EXAMINATION: XR knee RT 2V DATE: 02/06/2022 11:51 INDICATION: Multiple joint pain. TECHNIQUE: 2 views of right knee were obtained. COMPARISON: Right knee radiographs 11/20/2020 FINDINGS: Bone alignment is normal. No fracture. There is mild osteoarthritis of medial and patellofe moral compartment characterized by marginal osteophytes. No joint space narrowing. No knee joint effu tenzin. IMPRESSION: 1. Mild right knee osteoarthritis. Reviewed, dictated and finalized at location A.
--- NOTE | ~2022-02-06 | XR_ITS ---
EXAMINATION: XR hand LT 2V DATE: 02/06/2022 11:51 INDICATION: Multiple joint pain. TECHNIQUE: 2 views of left hand were obtained. COMPARISON: Left wrist radiographs 11/20/2020 FINDINGS: Bone alignment is normal. No fracture. There is mild osteoarthritis of first carpometacarpa l joint, moderate osteoarthritis of third metacarpophalangeal joint, and mild osteoarthritis of fourt h metacarpophalangeal joint and most of the interphalangeal joints. There is moderate osteoarthritis of fourth and fifth distal interphalangeal joints. IMPRESSION: 1. Polyarticular osteoarthritis. Reviewed, dictated and finalized at location A.
--- NOTE | ~2022-02-06 | XR_ITS ---
EXAMINATION: XR hand RT 2V DATE: 02/06/2022 11:52 INDICATION: Multiple joint pain. TECHNIQUE: 2 views of right hand were obtained. COMPARISON: Right wrist radiographs 11/20/2020 FINDINGS: Bone alignment is normal. No fracture. There is mild osteoarthritis of triscaphe joint, mod erate osteoarthritis of first carpometacarpal joint, severe osteoarthritis of third metacarpophalange al joint, and mild osteoarthritis of most of the metacarpophalangeal joints and interphalangeal joint s. There is moderate osteoarthritis of second and fifth distal interphalangeal joints. IMPRESSION: 1. Polyarticular osteoarthritis. Reviewed, dictated and finalized at location A.
[2022-02-06 12:46] LABS: Basophils Absolute Auto 0.02 K/mm3 (0.00-0.10); Basophils Percent Auto 0.3 % (0.0-1.0); Eosinophils Absolute Auto 0.04 K/mm3 (0.02-0.50); Eosinophils Percent Auto 0.6 % (1.0-6.0); Hematocrit 32.1 % (35.0-42.0); Hemoglobin 10.2 g/dL (11.7-13.8); Immature Granulocyte Absolute 0.02 K/mm3 (0.00-0.00); Immature Granulocyte Percent A 0.3 % (0.0-0.0); Lymphocytes Absolute Auto 0.56 K/mm3 (1.10-4.50); Lymphocytes Percent Auto 7.9 % (18.0-42.0); Mean Corpuscular HGB Conc 31.8 g/dL (32.0-36.0); Mean Corpuscular Hemoglobin 27.6 pg (27.0-31.0); Mean Platelet Volume 9.6 fl (9.2-11.8); Monocytes Absolute Auto 0.37 K/mm3 (0.10-0.90); Monocytes Percent Auto 5.2 % (2.0-11.0); Neutrophils Absolute Auto 6.1 K/mm3 (1.7-7.2); Neutrophils Percent Auto 85.7 % (50.0-70.0); Platelet Count Result 280 K/mm3 (150-420); Red Blood Count 3.69 M/mm3 (4.20-5.40); Red Cell Distribution Width 13.4 % (11.6-14.4); White Blood Count 7.1 K/mm3 (4.8-10.8)
[2022-02-06 12:57] LABS: Rheumatoid Factor Screen Negative (Negative)
[2022-02-06 13:29] LABS: Alanine Aminotransferase 18 U/L (14-59); Albumin Level 3.7 g/dL (3.4-5.0); Alkaline Phosphatase 78 U/L (46-116); Anion Gap 6 mmol/L (8-16); Aspartate Amino Transferase 14 U/L (15-37); Bilirubin,Total 0.3 mg/dL (0.00-1.00); Blood Urea Nitrogen 12 mg/dL (7-18); CRP 2.4 mg/dL (0.0-0.9); Carbon Dioxide 29 mmol/L (21-32); Chloride 101 mmol/L (98-108); Creatine Kinase 42 U/L (26-192); Estimated Glomerular Filt Rate > 60; Ferritin 426 ng/mL (8-252); Folic Acid 10.9 ng/mL (8.6->20); Free T4 Free Thyroxine 1.09 ng/dL (0.76-1.46); Glucose 75 mg/dL (70-99); Magnesium 2.2 mg/dL (1.8-2.4); Osmolality Calculated 280 mOsm/kg (285-295); Potassium 3.9 mmol/L (3.5-5.1); Sodium 136 mmol/L (136-145); Total Protein 7.5 g/dL (6.4-8.2); Vitamin B12 447 pg/mL (193-986)
[2022-02-06 14:05] LABS: Erythrocyte Sedimentation Rate 28 mm/hr (0-20)
[2022-02-09 23:06] LABS: Vitamin D 25 Hydroxy 31 ng/mL (30-100)
[2022-02-10 18:36] LABS: Hepatitis B Core Ab Total Nonreactive (Nonreactive)
[2022-02-10 18:38] LABS: Hepatitis B Surface Antibody Nonreactive (Nonreactive); Hepatitis B Surface Antigen Nonreactive (Nonreactive); Hepatitis C Virus Antibody Nonreactive (Nonreactive)
[2022-02-11 09:16] LABS: NIL 0.02 IU/mL; Quantiferon TB Plus, 1T INDETERMINATE (NEGATIVE); TB2-NIL <0.00 IU/mL
[2022-02-11 14:51] LABS: Hepatitis B DNA PCR <1.00 Log IU/mL; Hepatitis B DNA PCR <10 IU/mL
[2022-02-12 12:15] LABS: Anti Cyclic Citrullinated Pept <16 Units (<20)
[2022-02-20 09:15] LABS: Reference Lab Test Name 14-3-3 eta Protein
== END 2022-02-06 11:22 | disposition home or self-care (01) ==
LOC: CHSLAB 11:23
PROVIDERS: PCP Internal Medicine; Visit Provider Internal Medicine Rheumatology
DX: R53.83 Other fatigue (principal); M19.90 Unspecified osteoarthritis, unspecified site; E55.9 Vitamin D deficiency, unspecified; E53.8 Deficiency of other specified B group vitamins; D50.9 Iron deficiency anemia, unspecified; Z11.59 Encounter for screening for other viral diseases; M25.50 Pain in unspecified joint; R53.1 Weakness; Z01.89 Encounter for other specified special examinations
CPT/HCPCS: 36415; 73120; 73560; 80053; 82306; 82550; 82607; 82728; 82746; 83520; 83735; 84439; 84443; 84550; 85025; 85652; 86038; 86140; 86200; 86430; 86480; 86704; 86706; 87517

== ENCOUNTER 2022-03-27 10:39 | Outpatient (CLI) | payer MEDICARE, SELFPAY ==
[2022-03-30 10:36] LABS: TB Skin Test Erythema 0 mm; TB Skin Test Induration 0 mm (0-10); TB Skin Test Interpretation Negative (Negative); TB Skin Test Site Left Arm
[2022-03-31 13:33] LABS: NIL 0.03 IU/mL; Quantiferon TB Plus, 1T NEGATIVE (NEGATIVE); TB1-NIL 0.01 IU/mL
== END 2022-03-27 10:40 | disposition home or self-care (01) ==
LOC: CHSLAB 10:42
PROVIDERS: PCP Internal Medicine; Visit Provider Internal Medicine Rheumatology
DX: Z11.1 Encounter for screening for respiratory tuberculosis (principal); Z11.59 Encounter for screening for other viral diseases
CPT/HCPCS: 36415; 86480; 86580

== ENCOUNTER 2022-05-01 11:54 | Outpatient (CLI) | payer MEDICARE, SELFPAY ==
[2022-05-01 12:13] LABS: Basophils Absolute Auto 0.03 K/mm3 (0.00-0.10); Basophils Percent Auto 0.5 % (0.0-1.0); Eosinophils Absolute Auto 0.09 K/mm3 (0.02-0.50); Eosinophils Percent Auto 1.6 % (1.0-6.0); Hematocrit 32.6 % (35.0-42.0); Hemoglobin 10.5 g/dL (11.7-13.8); Immature Granulocyte Absolute 0.01 K/mm3 (0.00-0.00); Immature Granulocyte Percent A 0.2 % (0.0-0.0); Lymphocytes Absolute Auto 0.73 K/mm3 (1.10-4.50); Lymphocytes Percent Auto 12.9 % (18.0-42.0); Mean Corpuscular HGB Conc 32.2 g/dL (32.0-36.0); Mean Corpuscular Hemoglobin 26.8 pg (27.0-31.0); Mean Corpuscular Volume 83.2 fL (78.0-102.0); Mean Platelet Volume 8.5 fl (9.2-11.8); Monocytes Absolute Auto 0.54 K/mm3 (0.10-0.90); Monocytes Percent Auto 9.5 % (2.0-11.0); Neutrophils Absolute Auto 4.3 K/mm3 (1.7-7.2); Neutrophils Percent Auto 75.3 % (50.0-70.0); Platelet Count Result 290 K/mm3 (150-420); Red Blood Count 3.92 M/mm3 (4.20-5.40); Red Cell Distribution Width 16.7 % (11.6-14.4); White Blood Count 5.7 K/mm3 (4.8-10.8)
[2022-05-01 12:28] LABS: Alanine Aminotransferase 16 U/L (14-59); Albumin Level 3.7 g/dL (3.4-5.0); Alkaline Phosphatase 86 U/L (46-116); Anion Gap 9 mmol/L (8-16); Aspartate Amino Transferase 15 U/L (15-37); Bilirubin Direct 0.1 mg/dL (0-0.2); Bilirubin,Total 0.3 mg/dL (0.00-1.00); Blood Urea Nitrogen 15 mg/dL (7-18); Calcium 9.4 mg/dL (8.5-10.1); Carbon Dioxide 27 mmol/L (21-32); Chloride 101 mmol/L (98-108); Estimated Glomerular Filt Rate > 60; Glucose 93 mg/dL (70-99); Osmolality Calculated 284 mOsm/kg (285-295); Potassium 5.1 mmol/L (3.5-5.1); Sodium 137 mmol/L (136-145); Total Protein 7.6 g/dL (6.4-8.2)
== END 2022-05-01 11:55 | disposition home or self-care (01) ==
LOC: CHSLAB 11:56
PROVIDERS: PCP Internal Medicine; Visit Provider Internal Medicine Rheumatology
DX: Z51.81 Encounter for therapeutic drug level monitoring (principal); Z79.899 Other long term (current) drug therapy
CPT/HCPCS: 36415; 80048; 80076; 85025

== ENCOUNTER 2022-06-01 16:32 | Outpatient (CLI) | payer MEDICARE, SELFPAY ==
[2022-06-01 16:53] LABS: Basophils Absolute Auto 0.04 K/mm3 (0.00-0.10); Basophils Percent Auto 0.7 % (0.0-1.0); Eosinophils Absolute Auto 0.12 K/mm3 (0.02-0.50); Eosinophils Percent Auto 2.1 % (1.0-6.0); Hematocrit 31.5 % (35.0-42.0); Hemoglobin 9.9 g/dL (11.7-13.8); Immature Granulocyte Absolute 0.03 K/mm3 (0.00-0.00); Immature Granulocyte Percent A 0.5 % (0.0-0.0); Lymphocytes Absolute Auto 0.84 K/mm3 (1.10-4.50); Lymphocytes Percent Auto 14.4 % (18.0-42.0); Mean Corpuscular HGB Conc 31.4 g/dL (32.0-36.0); Mean Corpuscular Volume 86.1 fL (78.0-102.0); Mean Platelet Volume 9.2 fl (9.2-11.8); Monocytes Absolute Auto 0.49 K/mm3 (0.10-0.90); Monocytes Percent Auto 8.4 % (2.0-11.0); Neutrophils Absolute Auto 4.3 K/mm3 (1.7-7.2); Neutrophils Percent Auto 73.9 % (50.0-70.0); Platelet Count Result 269 K/mm3 (150-420); Red Blood Count 3.66 M/mm3 (4.20-5.40); Red Cell Distribution Width 18.4 % (11.6-14.4); White Blood Count 5.8 K/mm3 (4.8-10.8)
[2022-06-01 17:11] LABS: Alanine Aminotransferase 16 U/L (14-59); Albumin Level 3.8 g/dL (3.4-5.0); Alkaline Phosphatase 93 U/L (46-116); Anion Gap 8 mmol/L (8-16); Aspartate Amino Transferase 13 U/L (15-37); Bilirubin Direct 0.1 mg/dL (0-0.2); Bilirubin,Total 0.2 mg/dL (0.00-1.00); Blood Urea Nitrogen 17 mg/dL (7-18); Carbon Dioxide 24 mmol/L (21-32); Chloride 102 mmol/L (98-108); Estimated Glomerular Filt Rate > 60; Glucose 132 mg/dL (70-99); Osmolality Calculated 281 mOsm/kg (285-295); Potassium 3.8 mmol/L (3.5-5.1); Sodium 134 mmol/L (136-145); Total Protein 7.2 g/dL (6.4-8.2)
== END 2022-06-01 16:33 | disposition home or self-care (01) ==
LOC: CHSLAB 16:35
PROVIDERS: PCP Internal Medicine; Visit Provider Internal Medicine Rheumatology
DX: Z51.81 Encounter for therapeutic drug level monitoring (principal); Z79.899 Other long term (current) drug therapy
CPT/HCPCS: 36415; 80048; 80076; 85025

== ENCOUNTER 2022-06-18 13:54 | Outpatient (CLI) | payer MEDICARE, SELFPAY ==
[2022-06-18 15:07] LABS: Basophils Percent Auto 0.5 % (0.2-1.2); Eosinophils Absolute Auto 0.1 K/mm3 (0-0.3); Eosinophils Percent Auto 1.2 % (0-4.4); Hematocrit 30.7 % (37.0-47.0); Immature Granulocyte Absolute 0.01 K/mm3 (0.00-0.031); Immature Granulocyte Percent A 0.2 % (0-0.5); Lymphocytes Percent Auto 17.2 % (18.3-44.2); Mean Corpuscular HGB Conc 32.6 g/dl (32-36); Mean Corpuscular Hemoglobin 28.2 pg (26-34); Mean Corpuscular Volume 86.7 fl (80-100); Mean Platelet Volume 8.7 fl (7.4-10.4); Monocytes Absolute Auto 0.5 K/mm3 (0.1-0.6); Monocytes Percent Auto 7.2 % (2.6-8.5); Neutrophils Absolute Auto 4.7 K/mm3 (1.3-6.7); Neutrophils Percent Auto 73.7 % (45.5-73.1); Platelet Count Result 248 k/mm3 (150-375); Red Blood Count 3.54 M/mm3 (4.2-5.4); Red Cell Distribution Width 17.9 % (11.5-14.5); White Blood Count 6.4 K/mm3 (4.5-10.0)
[2022-06-18 15:31] LABS: Urine Cotinine NEGATIVE
[2022-06-18 15:34] LABS: Hemoglobin A1C 5.2 % (<5.7)
== END 2022-06-18 13:55 | disposition home or self-care (01) ==
LOC: ANHSURGERY 13:58
PROVIDERS: PCP Internal Medicine; Visit Provider Orthopaedic Surgery
DX: Z01.812 Encounter for preprocedural laboratory examination (principal); M16.11 Unilateral primary osteoarthritis, right hip; Z51.81 Encounter for therapeutic drug level monitoring; Z79.899 Other long term (current) drug therapy
CPT/HCPCS: 80307; 83036; 85025; 87070; 87147; 87181; 87186

== ENCOUNTER 2022-06-25 11:50 | Outpatient (CLI) | payer MEDICARE, SELFPAY ==
[2022-06-25 12:10] LABS: Immature Reticulocyte Fraction 6.8 % (2.0-16.52); Reticulocyte Hemoglobin Conten 33.1 pg (28.0-35.0); Reticulocyte Percent 1.43 % (0.50-1.50); Reticulocytes Absolute 0.05 M/mm3 (0.02-0.1)
[2022-06-25 13:40] LABS: Ferritin 378 ng/mL (8-252); Iron 76 ug/dL (50-170); Vitamin B12 366 pg/mL (193-986)
== END 2022-06-25 11:51 | disposition home or self-care (01) ==
LOC: CHSLAB 11:52
PROVIDERS: PCP Internal Medicine; Visit Provider Internal Medicine
DX: D50.9 Iron deficiency anemia, unspecified (principal)
CPT/HCPCS: 36415; 82607; 82728; 83540; 85046

== ENCOUNTER 2022-07-06 01:07 | Day surgery (SDC) | payer MEDICARE, SELFPAY ==
[2022-06-18 14:03] VITALS: BMI 19.7
--- NOTE | 2022-06-18 14:23 | PC.NURSE ---
Report to the Outpatient Waiting Room, entrance under the green pavilion located off [facility], at time _0600 on date __07/06/22 . OR Time: _729 . Time changes happen often and if your time is changed the preop area will call you the afternoon before. - You and your visitor will be asked to self-screen and do not enter if you have any COVID symptoms. - Only one visitor and NO children visitors are allowed at this time. - The patient visitor is requested to leave or wait in car when not with patient due to restrictions. - A mask is required within the hospital. Patients may have clear liquids (water, carbonated beverages, clear teas, apple juice) until 3 hours prior to surgery with a maximum of 20 ounces. - No food from midnight until time of surgery - Infants may have breast milk until 4 hours before surgery, formula 6 hours prior to surgery. - Children will be allowed to drink immediately following surgery. If applicable, please bring a bottle or sippy cup to assist with drinking. Juice, water, soda, and popsicles are readily available. For infants on formula, please bring formula the day of surgery. Pacifiers are allowed. Take the following medications with a SIP of water the morning of surgery: ____FLECAINIDE Medications to discontinue per physician __PT STATES ELIQUIS 2 DAYS PRE OP AND METHOTREXATE 7 DAYS PRE OP PER DR OWUSU . ALL VITAMINS AND SUPPLEMENTS 3 DAYS PRE OP Date to take last dose_ELIQUIS 07/03/22 METHOTREXATE 06/28/22 ALL VIT/SUPP 07/02/22 Please no make-up, nail faroese, hairspray, perfume, deodorant, or body powder the day of surgery. No jewelry (including any body piercings) or valuables the day of surgery, leave them at home. Please take a shower or bath the night before, or the morning of, surgery with an antibacterial soap. Wear comfortable, loose fitting clothing. Children are encouraged to wear pajamas. - Jewelry must be removed prior to entering the operating room. Rings and piercings that are not removed may be cut off. - The hospital will not accept responsibility for valuables. - Please leave all valuables, including medications, at home the day of surgery. If you are going home after surgery, a licensed regional company hazmat tanker driver must drive you home. - NO public transportation without another adult. - We recommend that an adult stay with you for 24 hours following discharge. - We also recommend that you do not drive, make important decision, drink alcoholic beverages, or take any drugs that were not prescribed by your health care provider for at least 24 hours after your discharge time. For Pediatric surgeries, we recommend two adults accompany the child home (only one inside the building at this time). Follow any additional instructions given to you from your surgeon. If you or anyone in your household have experienced Covid symptoms in the past week, please notify your surgeon or the nurse liaison at the phone number below for possible testing. VERBAL AND WRITTEN instructions given to _PATIENT and asked if any additional questions and then verbalized understanding. Patient advised to call surgeon office or pre surgery nurse liaison [phone] if any additional questions.
[2022-06-18 14:38] VITALS: BP 112/69; PULSE 81; RESP 18; TEMP 36.7; O2SAT 99
--- NOTE | 2022-07-03 09:36 | PM.IMHP ---
H&P: HPI History of Present Illness Date/Time: 07/03/22 09:36 Chief Complaint: Right hip DJD Narrative: 77-year-old female patient of Dr. Spear presents today for a right anterior total hip arthroplasty. She underwent left anterior total arthroplasty in December of this year. She did well with her recovery and is very happy with her results. Her right hip continues to be very symptomatic for her. She has severe type 2 arthritis in the right hip. Patient feels this point she is ready to proceed with total arthroplasty rather continue nonsurgical treatment. Review of Systems Review of Systems: All systems reviewed & are unremarkable except as noted in HPI and below PMFSH Past Medical History Medical History Heart disease history of atrial flutter Rheumatoid arthritis Social History Social History Smoking status: Never smoker Additional smoking assessment comments: DENIES ANY FORM OF TOBACCO USE Alcohol intake: never Substance use: never Substance use type: does not use Spiritual care concerns: No Meds Home Medications and Allergies Home Medications Medication Instructions Recorded Confirmed Type flecainide 100 mg tablet 100 mg PO Q12H 01/07/21 06/18/22 History calcium carbonate 500 mg-vitamin 1 tablet PO DAILY 11/24/21 06/18/22 History D3 3.125 mcg (125 unit) tablet cholecalciferol (vitamin D3) 25 25 mcg PO DAILY 11/24/21 06/18/22 History mcg (1,000 unit) tablet acetaminophen 500 mg tablet 1,000 mg PO Q6HR #90 tabs 12/09/21 06/18/22 Rx apixaban 2.5 mg tablet (Eliquis) 2.5 mg PO Q12HR #13 tabs 12/09/21 06/18/22 Rx ferrous sulfate 325 mg (65 mg 325 mg PO DAILY 06/18/22 06/18/22 History iron) tablet folic acid 1 mg tablet 1 mg PO DAILY 06/18/22 06/18/22 History methotrexate sodium 2.5 mg tablet 7.5 mg PO WEEKLY 06/18/22 06/18/22 History Allergies Allergy/AdvReac Type Severity Reaction Status Date / Time No Known Allergies Allergy Verified 06/18/22 14:04 Exam Narrative: 77-year-old female alert pleasant. She is 5 ft 5 and 120 lb. Right hip flexes to 115 which cause her moderate anterior thigh pain. Internal rotation to 15 causing severe anterior thigh pain radiating to the knee. External rotation to 20? with moderate thigh pain. Stinchfield maneuver causes her anterior thigh pain. She has normal abduction strength in the right hip. Mild tenderness over the greater trochanter. She walks with a mild limp. 2+ dorsalis pedis and posterior tibial artery pulse palpable. No swelling in either lower extremity. Intact sensation in both lower extremities. Resp: Auscultation: clear to auscultation bilaterally Cardio: Rate: other Rhythm: abnormal rhythm Assessment and Plan Assessment and plan (1) Hip arthritis: Code(s): M16.10 - Unilateral primary osteoarthritis, unspecified hip Status: Acute Plan 77-year-old female who has severe type 2 arthritis of the right hip with significant symptoms on a daily basis. Again she did very well with her left total arthroplasty her this year and feels she is ready to proceed with a right. Surgical procedure as well as risks and complications were discussed in detail questions were answered and we will proceed. Patient will see her primary care doctor for pre-surgical clearance. She will stop her Eliquis 3 days prior to surgery. We will utilize 2.5 mg Eliquis for the 1st week and then she will resume her normal Eliquis dosing after that. We also plan to use Celebrex 100 mg for that week as well. Patient will stop her methotrexate, the dose 1 week before surgery and then her subsequent dose week after surgery and then may resume it after that. Patient does have a history of anemia and has been evaluated by hematology. Hemoglobin preoperatively is 10.0 platelets 248. Her nasal swab did grow oxacillin sensitive Staph aureus she mccoy
[2022-07-06] VITALS (15 sets, daily range): BP systolic 116–156; BP diastolic 58–81; PULSE 65–92; RESP 12–21; TEMP 36.1–37.1; O2SAT 93–100
--- NOTE | ~2022-07-06 | XR_ITS ---
EXAMINATION: XR surgery orthopedic DATE: 07/06/2022 11:30 INDICATION: Right hip osteoarthritis. TECHNIQUE: 2 intraoperative fluoroscopic views of right hip were obtained. I was not present. Fluoros copy exposure time was 37 seconds. COMPARISON: Pelvis radiograph 07/06/2022 FINDINGS: There is a total right hip arthroplasty in near-anatomic alignment. IMPRESSION: 1. Total right hip arthroplasty in near-anatomic alignment. Reviewed, dictated and finalized at location B.
--- NOTE | ~2022-07-06 | XR_ITS ---
EXAMINATION: XR hip RT 1V w AP pelvis DATE: 07/06/2022 11:46 INDICATION: Total right hip arthroplasty. Postop. TECHNIQUE: An anteroposterior view of the pelvis and single view of right hip were obtained. COMPARISON: Pelvis radiograph 12/08/2021 FINDINGS: There are bilateral total hip arthroplasties in near-anatomic alignment. No fracture. Ostei tis pubis is noted. There is a surgical drain in the soft tissues near right hip. IMPRESSION: 1. Bilateral total hip arthroplasties in near-anatomic alignment. Reviewed, dictated and finalized at location B.
[2022-07-06] MEDS: LACTATED RINGERS 1,000 ML 30 ML IV CONT ×2 (06:30→11:46)
[2022-07-06] MEDS: ACETAMINOPHEN 500 MG TABLET 1000 MG PO ×4 (06:38→23:56)
[2022-07-06] MEDS: TRANEXAMIC ACID 1,000MG/ISO100 1,000 MG/100 ML BAG 200 MG IVPB (06:39)
--- NOTE | 2022-07-06 07:14 | P.PNAN_ITS ---
Anes - Initial Pre Proc Eval Procedure: Operation Date: 07/06/22 07:30 Proposed Procedures p Right Total Hip Arthroplasty Anterior Approach - Malvin Bose MD Date/Time: 07/06/22 07:14 Surgeon: Malvin Bose MD Pre Op Diagnosis: ra right hip Patient Data Age: 77 Gender: F Height: 1.68 m Weight: 55.5 kg Last Vital Signs Temp 36.7 C 06/18/22 14:38 Pulse 81 06/18/22 14:38 Resp 18 06/18/22 14:38 BP 112/69 06/18/22 14:38 Pulse Ox 99 06/18/22 14:38 O2 Del Method Room Air 06/18/22 14:38 Allergies Allergy/AdvReac Type Severity Reaction Status Date / Time No Known Allergies Allergy Verified 06/18/22 14:04 Home Medications Medication Instructions Recorded Confirmed Type flecainide 100 mg tablet 100 mg PO Q12H 01/07/21 06/18/22 History calcium carbonate 500 mg-vitamin 1 tablet PO DAILY 11/24/21 06/18/22 History D3 3.125 mcg (125 unit) tablet cholecalciferol (vitamin D3) 25 25 mcg PO DAILY 11/24/21 06/18/22 History mcg (1,000 unit) tablet acetaminophen 500 mg tablet 1,000 mg PO Q6HR #90 tabs 12/09/21 06/18/22 Rx apixaban 2.5 mg tablet (Eliquis) 2.5 mg PO Q12HR #13 tabs 12/09/21 06/18/22 Rx ferrous sulfate 325 mg (65 mg 325 mg PO DAILY 06/18/22 06/18/22 History iron) tablet folic acid 1 mg tablet 1 mg PO DAILY 06/18/22 06/18/22 History methotrexate sodium 2.5 mg tablet 7.5 mg PO WEEKLY 06/18/22 06/18/22 History Patient hx anesthesia problems: none Family hx anesthesia problems: none Results Review: All pre-operative results and documents have been reviewed as part of the pre- operative evaluation. [facility] Past Medical History Medical History Anemia Heart disease history of atrial flutter Rheumatoid arthritis Social History Social History Smoking status: Never smoker Additional smoking assessment comments: DENIES ANY FORM OF TOBACCO USE Alcohol intake: never Substance use: never Substance use type: does not use Living arrangements: with family Spiritual care concerns: No Anes - Eval Final PreProcedure Day of Procedure 07/06/22 07:14 Patient weight: normal Heart: regular rate and rhythm Lungs: clear to auscultation Airway: Mallampati scale class II Neurological: other (alert) Last oral intake: >/= 8 hours ASA classification: III Emergent: no Anesthetic plan: proceed Anesthesia type and monitoring: general ETT and standard monitoring Results Review: All pre-operative results and documents have been reviewed as part of the pre- operative evaluation. Informed Consent: The patient's anesthetic plan and its attendant risks and benefits were discussed with the patient/family/POA. Questions were solicited and answers provided to the satisfaction of the patient/family/POA.
--- NOTE | 2022-07-06 07:23 | WPDHPUPDATE1 ---
History and Physical Update Update Date/Time: 07/06/22 07:23 History and Physical has been reviewed, including an updated exam of the patient. There are NO changes in the patient's condition. Risks, benefits, and alternatives have been discussed and questions answered. Patient agrees to proceed with procedure.
[2022-07-06] MEDS: ceFAZolin 2 GM/D5W 50 ML 2 GM/50 ML BAG IVPB (08:29)
[2022-07-06] MEDS: ceFAZolin SODIUM 1 GM VIAL 3 GM (09:13)
[2022-07-06] MEDS: ceFAZolin SODIUM 1 GM VIAL IV PUSH (11:20)
[2022-07-06] MEDS: TRANEXAMIC ACID 1,000 MG/10 ML AMPUL 1000 MG IV PUSH (11:20)
--- NOTE | 2022-07-06 11:30 | W.PM.PROC2 ---
Procedure Note - Detailed Date of Procedure 07/06/22 Pre-op Diagnosis ra right hip Post-op Diagnosis Same Procedure Performed Direct anterior approach total hip arthroplasty right hip Surgeon Malvin Bose MD Planning Assistant Luca Gaytan Description of Procedure Patient brought to the operating room general anesthesia was administered. She received weight based vancomycin 2 g Ancef preoperatively. 1 g of tranexamic acid. The feet were padded boots applied she was transferred to the [facility] [place] table and the right hip prepped draped usual fashion. SCDs were placed on the legs and running through the procedure. A 10 cm longitudinal incision was made starting 3 cm lateral to the ASIS. The fascia of the tensor fascia nishant was incised elevated off the anterior 1/2 of the TFL muscle. Interval between the tensor fascia nishant and rectus femoris developed and the crossing branches of the ascending lateral femoral circumflex vessels were ligated with suture and divided. Her hemoglobin was 10 preoperatively so we tried to be very careful with blood loss unfortunately she did not have the cancellous bone bleeding that some patients half. Inverted T capsulotomy was performed femoral neck osteotomy made according to preoperative templating. Femoral head was removed. It measured 49 mm in diameter. Acetabulum was exposed labrum excised. Remaining posterior superior articular cartilage was curetted. Femur was externally rotated and extended and the interval between conjoined tendon piriformis was incised allowing the piriformis to flip and the conjoined tendon to recessed. With the leg back horizontal external rotation acetabulum was exposed. We medialized with a 44 Reamer under fluoroscopic guidance and reamed up to 48 mm which did not quite reach the periphery soft circumferentially and the 48 trial was loose. We reamed to 49 mm with the periphery. Forty-nine trial had appropriate fit we impacted the 50 mm pinnacle cup at 40? of abduction anteversion such that the anterior shell was just under the anterior rim posterior shell flush with posterior rim. An excellent Press-Fit was achieved and a single screw placed in the ilium and the 32 inner diameter polyethylene liner seated without difficulty. The femur was extended externally rotated with the table hook and placed and femur was broached up to a size 7. The 7 had torsional stability. We trialed with the +1 head and it was just a little bit tight and we could see under x-ray that were about 2.5 mm high still relative to the neck cut and the saddle. We calcar planed countersunk calcar planed again and this time we had appropriate soft tissue stability and our leg lengths matched our preoperative plan. Torsional stability of the 7 broach was confirmed and we impacted the size 7 Actis standard offset component which seated fully with an excellent snug fit. After read trialing the size +1 x 32 stainless steel head was chosen impacted onto the cleaned and dried trunnion hip reduced stability reconfirmed. Capsule was reapproximated superiorly with 2. Vicryl is a. Fascia closed with running 1. Vicryl drain in the subcu skin closed with 270s Vicryl and glue EBL was 250 cc. Not enough blood loss for Cell [employer] to get back any blood. 3rd g Ancef 2nd g of tranexamic acid given at time of wound closure. No known complications. She was transferred postop recovery room in stable condition. Estimated Blood Loss 250 Drains Yes Pathology None sent Complications No immediate complications Condition Stable Disposition PACU
--- NOTE | 2022-07-06 11:55 | PM.OP ---
Procedure Note - Brief Procedure Note - Brief Date of procedure: 07/06/22 Pre-op diagnosis: ra right hip Right hip DJD Procedure performed: Right total hip arthroplasty Description of procedure: 77-year-old female who underwent right total hip arthroplasty on 07/06. I was about the procedure including positioning patient on the OR table. Prepping and draping. It was involved as 1st assist throughout the time surgery as well as wound closure. Also assisted with getting patient to recovery. Total time spent was 4 hours. Surgeon: KANA Acuña
[2022-07-06] MEDS: fentaNYL CITRATE INJ (*CRX) 100 MCG/2 ML VIAL 25 MCG IV PUSH ×4 (12:06→12:36)
--- NOTE | 2022-07-06 14:00 | WPDCN ---
Assessment and Plan Assessment and plan (1) Hip arthritis: Code(s): M16.10 - Unilateral primary osteoarthritis, unspecified hip Status: Acute Assessment and Plan: Postoperative day 0, status post direct anterior approach total right hip arthroplasty. Wound care, pain control, and DVT prophylaxis deferred to Dr. Bose. PT/OT consulted. Baseline labs ordered for a.m. (2) Paroxysmal atrial flutter: Code(s): I48.92 - Unspecified atrial flutter Status: Acute Assessment and Plan: Currently in a sinus rhythm. Continue flecainide. (3) Chronic anticoagulation: Code(s): Z79.01 - skilled nursing (current) use of anticoagulants Status: Acute Assessment and Plan: Resume Eliquis when okay with Orthopedic surgeon. Plan Thank you for allowing us to participate in this patient's care. Please do not hesitate to contact us with any questions. Supervising physician for this medical consultation is Dr. Dr. Reddy Cortez. HPI Data of Consult Date/Time: 07/06/22 14:00 Requesting Physician: Malvin Bose MD Primary Care Provider: Eugenia Spear MD Consult Narrative Reason for consult: Postoperative medical management. Narrative: This is a 77-year-old female with rheumatoid arthritis and paroxysmal atrial flutter on chronic anticoagulation whom the hospitalist service has been consulted for help managing her medical conditions postoperatively. She has had pain in both of her hips for quite some time and had her left hip replaced in December with good results. Her right hip continues to give her quite a bit of pain despite conservative outpatient treatment and she opted for replacement of her right hip today. Her surgery was performed under general anesthesia with no immediate complications documented and an estimated blood loss of 250 milliliters. Postoperatively she is doing quite well and her pain is well controlled on the current regimen. She was a bit woozy when originally getting up with therapy in her room however that has since passed. She denies postoperative fever, chills, sweats, chest pain, shortness a breath, nausea, and vomiting. She also denies paresthesias, skin color, and temperature changes distal to the surgical site. Upon discharge she will return to the home she shares with her daughter, son-in-law, and their children and she will have a lot help. Review of Systems Review of Systems: Twelve systems were reviewed. No recent cold or flu symptoms. No history of venous thromboembolism. Except as documented, all other systems were reviewed and are negative. [facility] Past Medical History Medical History (Updated 07/06/22 @ 18:38 by Randa Cook PA-C) Anemia Chronic anticoagulation Paroxysmal atrial flutter Rheumatoid arthritis Surgical History Surgical History (Updated 07/06/22 @ 18:38 by Randa Cook PA-C) History of left hip replacement (12/2021) History of right hip replacement (07/06/22) Family History Family History (Updated 07/06/22 @ 20:24 by Randa Cook PA-C) Other Family history non-contributory Social History Social History (Updated 07/06/22 @ 20:26 by Randa Cook PA-C) Social History: Surrogate medical decision maker: Jaymie Schuster, daughter. Code status: Full code. Smoking status: Never smoker Alcohol intake: never Substance use: never Substance use type: does not use Living arrangements: with family Spiritual care concerns: No Meds Home Medications and Allergies Home Medications Medication Instructions Recorded Confirmed Type flecainide 100 mg tablet 100 mg PO Q12H 01/07/21 07/06/22 History calcium carbonate 500 mg-vitamin 1 tablet PO DAILY 11/24/21 07/06/22 History D3 3.125 mcg (125 unit) tablet cholecalciferol (vitamin D3) 25 25 mcg PO DAILY 11/24/21 07/06/22 History mcg (1,000 unit) tablet acetaminophen 500 mg tablet 1,000 mg PO Q6HR #90 tabs 12/09/21
--- NOTE | 2022-07-06 14:06 | PC.NURSE ---
This patient, Enedina Mehta, was admitted to [facility] Surg Room 311-01. Report received from DANIEL Bond. Patient/family oriented to hospital policies and general routines including ID bracelet, bed and alarms, visiting hours, pain management, procedures, bathroom and other care routines, personal items, smoking policy, room service/diet, and visiting hours. Information on how to activate the Rapid Response Team has been discussed. Patient/Family are encouraged to report perceived risks to care and to ask questions if they do not understand what they are told or what they should do.
[2022-07-06] MEDS: ONDANSETRON INJ 4 MG/2 ML VIAL IV PUSH (14:21)
[2022-07-06] MEDS: SODIUM CHLORIDE 0.9% IV 1,000 ML 125 ML IV CONT ×2 (14:22→23:55)
[2022-07-06] MEDS: oxyCODONE HCL (*CRX) 2.5 MG TAB IR PO ×3 (14:23→21:04)
[2022-07-06] MEDS: SENNA/DOCUSATE SODIUM TABLET 2 TAB PO (17:28)
[2022-07-06] MEDS: FAMOTIDINE 20 MG TABLET PO (21:04)
[2022-07-06] MEDS: FLECAINIDE ACETATE 100 MG TABLET PO (21:04)
[2022-07-07 00:05] VITALS: BP 130/61; PULSE 71; RESP 16; TEMP 37.1; O2SAT 100
[2022-07-07] MEDS: oxyCODONE HCL (*CRX) 2.5 MG TAB IR PO ×4 (01:55→13:29)
[2022-07-07 02:52] VITALS: BP 117/58; PULSE 66; RESP 16; TEMP 36.9; O2SAT 98
[2022-07-07 04:55] VITALS: BP 137/62; PULSE 71; RESP 20; TEMP 36.6; O2SAT 99
[2022-07-07 06:15] LABS: Basophils Percent Auto 0.1 % (0.2-1.2); Eosinophils Percent Auto 0.1 % (0-4.4); Hematocrit 25.3 % (37.0-47.0); Hemoglobin 8.5 g/dL (12.0-15.0); Immature Granulocyte Absolute 0.05 K/mm3 (0.00-0.031); Immature Granulocyte Percent A 0.6 % (0-0.5); Lymphocytes Absolute Auto 0.68 K/mm3 (0.9-3.2); Lymphocytes Percent Auto 8.1 % (18.3-44.2); Mean Corpuscular HGB Conc 33.6 g/dl (32-36); Mean Corpuscular Hemoglobin 30.8 pg (26-34); Mean Corpuscular Volume 91.7 fl (80-100); Mean Platelet Volume 9.7 fl (7.4-10.4); Monocytes Absolute Auto 0.8 K/mm3 (0.1-0.6); Neutrophils Absolute Auto 6.8 K/mm3 (1.3-6.7); Neutrophils Percent Auto 81.1 % (45.5-73.1); Platelet Count Result 217 k/mm3 (150-375); Red Blood Count 2.76 M/mm3 (4.2-5.4); Red Cell Distribution Width 16.4 % (11.5-14.5); White Blood Count 8.4 K/mm3 (4.5-10.0)
[2022-07-07] MEDS: ACETAMINOPHEN 500 MG TABLET 1000 MG PO ×2 (06:22→12:13)
--- NOTE | 2022-07-07 06:22 | PM.PNORT ---
Subjective Subjective Date/Time Seen: 07/07/22 06:22Postop day 1 patient is alert. Pain is well controlled. Afebrile vital signs signs are stable. Morning labs have not been completed yet. Patient was up yesterday walking with physical therapy and is overall doing very well. Her this morning. She is going to work with therapy today. If she continues do well we will plan on discharging her home this afternoon. Neurovascularly she is intact. Dressing. Objective Data Vital Signs Vital Signs: Vital Signs - 24 hr 07/06/22 07:00 07/06/22 11:45 07/06/22 12:00 Temperature 36.8 C 36.7 C Pulse Rate 86 92 79 Respiratory Rate 16 14 20 Blood Pressure 142/81 H 156/79 H 154/77 H Pulse Oximetry 100 100 100 Oxygen Delivery Room Air Simple Face Mask Simple Face Mask Oxygen Flow Rate 10 10 07/06/22 12:15 07/06/22 12:30 07/06/22 12:45 Temperature Pulse Rate 75 77 79 Respiratory Rate 21 H 20 12 Blood Pressure 150/72 H 142/66 H 149/71 H Pulse Oximetry 100 99 97 Oxygen Delivery Simple Face Mask Room Air Room Air Oxygen Flow Rate 10 07/06/22 13:00 07/06/22 13:23 07/06/22 13:38 Temperature 36.6 C 36.1 C L Pulse Rate 80 80 65 Respiratory Rate 12 12 12 Blood Pressure 149/71 H 147/67 H 135/64 Pulse Oximetry 93 100 98 Oxygen Delivery Room Air Oxygen Flow Rate 07/06/22 14:41 07/06/22 14:08 07/06/22 15:08 Temperature 36.6 C 36.3 C L Pulse Rate 72 75 Respiratory Rate 12 12 Blood Pressure 150/67 H 125/58 L Pulse Oximetry 100 100 Oxygen Delivery Room Air Oxygen Flow Rate 07/06/22 18:56 07/06/22 21:04 07/06/22 22:56 Temperature 36.9 C 37.1 C Pulse Rate 67 81 75 Respiratory Rate 12 12 Blood Pressure 124/60 116/60 Pulse Oximetry 100 99 Oxygen Delivery Oxygen Flow Rate 07/07/22 00:05 07/07/22 02:52 07/07/22 04:55 Temperature 37.1 C 36.9 C 36.6 C Pulse Rate 71 66 71 Respiratory Rate 16 16 20 Blood Pressure 130/61 117/58 L 137/62 Pulse Oximetry 100 98 99 Oxygen Delivery Oxygen Flow Rate 07/06/22 14:04 Temperature 36.1 C L Pulse Rate 65 Respiratory Rate Blood Pressure 135/64 Pulse Oximetry 98 Oxygen Delivery Oxygen Flow Rate Intake/Output Intake/Output: Intake & Output 07/04/22 07/05/22 07/06/22 07/07/22 23:59 23:59 23:59 23:59 Intake Total 2618 1000 Output Total 600 400 Balance 2018 600 Meds/Results Medications: Active Medications Generic Name Dose Route Start Last Admin Trade Name Freq PRN Reason Stop Dose Admin Acetaminophen 1,000 mg 07/06/22 13:11 07/06/22 23:56 Acetaminophen 500 Mg Tablet PO 1,000 mg Q6HR SIMBA Administration Apixaban 2.5 mg 07/07/22 09:00 Apixaban 2.5 Mg Tablet PO Q12HR SIMBA Celecoxib 100 mg 07/07/22 09:00 Celecoxib 100 Mg Capsule PO DAILY SIMBA Cephalexin HCl 500 mg 07/07/22 12:00 Cephalexin 500 Mg Capsule PO Q6HR SIMBA Famotidine 20 mg 07/06/22 21:00 07/06/22 21:04 Famotidine 20 Mg Tablet PO 20 mg Q12HR SIMBA Administration Flecainide Acetate 100 mg 07/06/22 21:00 07/06/22 21:04 Flecainide Acetate 100 Mg Tablet PO 100 mg Q12HR SIMBA Administration Folic Acid 1 mg 07/07/22 09:00 Folic Acid 1 Mg Tablet PO DAILY SIMBA Hydroxyzine HCl 50 mg 07/06/22 13:11 Hydroxyzine Hcl 25 Mg Tablet PO Q4H PRN Itching Cefazolin Sodium 1 gm in 50 mls @ 100 mls/hr 07/06/22 16:00 07/07/22 04:57 Ancef 1 Gm/D5w 50 Ml Pm IVPB 07/07/22 08:29 Infused Q8H SIMBA Infusion Vancomycin HCl 500 mg/ Sodium 100 mls @ 100 mls/hr 07/06/22 18:00 07/06/22 19:55 Chloride IVPB 07/07/22 06:59 Infused Q12H SIMBA Infusion Naloxone HCl 0.1 mg 07/06/22 13:11 Naloxone Hcl 0.4 Mg/Ml Vial IV PUSH Q2M PRN Opiate Reversal Ondansetron HCl 4 mg 07/06/22 13:11 07/06/22 14:21 Ondansetron Inj 4 Mg/2 Ml Vial IV PUSH 4 mg Q4H PRN Administration Nausea And Vomiting Oxycodone HCl 2.5 mg 07/06/22 13:11 Oxycodone Hcl (*Cr
--- NOTE | 2022-07-07 06:38 | PM.DS ---
DS: Admitting Diagnosis Discharge Date 07/07 Admitting Diagnosis right hip DJD DS: Discharge Diagnosis Discharge Diagnosis (1) Hip arthritis: Code(s): M16.10 - Unilateral primary osteoarthritis, unspecified hip Status: Acute Plan 77-year-old female who underwent right anterior total hip arthroplasty 07/06. Underwent the procedure without complications. Postoperatively she has been afebrile vital signs are stable neurovascularly she is intact. Drain is out. She was up walking the day of surgery. Pain is well controlled with oxycodone 2.5 mg as well as scheduled Tylenol. She is on Eliquis 2.5 mg b.i.d. for 1 week then she will resume her chronic Eliquis dosing 5 mg b.i.d.. She is on Celebrex 100 mg once a day while she is on low-dose Celebrex. She has skipped her dose of methotrexate prior to surgery and received next week. Her history of rheumatoid she will score XII day course of Keflex. Postop day 1 patient's hemoglobin was 8.5, she does have history of chronic anemia. We will recheck hemoglobin in 2 days. Patient also cause Senokot MiraLax. Patient was advised to keep leg elevated swelling. She was advised any questions or concerns when she goes home she is to call the office otherwise we will see her at her appointed dates. DS: Summary Hospital Course Hospital Course: stable Time Spent with Patient Time attestation: Total time spent providing and/or coordinating discharge services: DS: Data Data Completed and Pending Labs on day of discharge: Labs from last 24 hours 07/07/22 07/07/22 07/07/22 05:24 05:24 05:24 WBC 8.4 RBC 2.76 L Hgb 8.5 L Hct 25.3 L MCV 91.7 MCH 30.8 MCHC 33.6 RDW 16.4 H Plt Count 217 MPV 9.7 Immature Gran % (Auto) 0.6 H Neut % (Auto) 81.1 H Lymph % (Auto) 8.1 L [place] % (Auto) 10.0 H Eos % (Auto) 0.1 Baso % (Auto) 0.1 L Lymph # (Auto) 0.68 L [place] # (Auto) 0.8 H Eos # (Auto) 0.0 Baso # (Auto) 0.0 Abs Immat Gran (auto) 0.05 H Absolute Neuts (auto) 6.8 H Absolute Nucleated RBC 0.0 Nucleated RBC % 0.0 Sodium Pending Potassium Pending Chloride Pending Carbon Dioxide Pending Anion Gap Pending BUN Pending Creatinine Pending Estim Creat Clear Calc Pending Estimated GFR Pending Glucose Pending Calcium Pending Magnesium Vitamin D 25-Hydroxy Pending Blood Type Antibody Screen 07/07/22 07/06/22 05:24 06:49 WBC RBC Hgb Hct MCV MCH MCHC RDW Plt Count MPV Immature Gran % (Auto) Neut % (Auto) Lymph % (Auto) [place] % (Auto) Eos % (Auto) Baso % (Auto) Lymph # (Auto) [place] # (Auto) Eos # (Auto) Baso # (Auto) Abs Immat Gran (auto) Absolute Neuts (auto) Absolute Nucleated RBC Nucleated RBC % Sodium Potassium Chloride Carbon Dioxide Anion Gap BUN Creatinine Estim Creat Clear Calc Estimated GFR Glucose Calcium Magnesium Pending Vitamin D 25-Hydroxy Blood Type AB Positive Antibody Screen Negative Discharge Plan Discharge Patient Disposition: Home, Self-Care Discharge Instructions: NIMA OWUSU M.D [facility], [place] [address] [place] [id number] POST-OPERATIVE DISCHARGE INSTRUCTIONS ANTERIOR TOTAL HIP ARTHROPLASTY 1. Move toes/feet up and down every hour while awake. 2. Be up walking every hour while awake. 3. Use cane in hand opposite of side of hip surgery or walker as comfort allows. Avoid sitting in a chair unless eating, receiving visitors or using the toilet. 4. When resting, lie on back with leg elevated above heart to minimize swelling. Significant swelling could indicate a blood clot and if this occurs, call the office (or go to the ER) to have a venous ultrasound performed. 5. Wound Care: Keep dry sponge on wound for 2 weeks. Use minimal tape. 6. Follow weigh
[2022-07-07 06:39] LABS: Anion Gap 6 mmol/L (8-16); Blood Urea Nitrogen 12 mg/dL (7-17); Calcium 8.5 mg/dL (8.4-10.2); Carbon Dioxide 24 mmol/L (22-30); Chloride 100 mmol/L (98-107); Estimated CRCL calculation 53 ml/min; Estimated Glomerular Filt Rate > 60; Glucose 106 mg/dL (65-110); Potassium 4.5 mmol/L (3.4-5.0); Sodium 130 mmol/L (137-145)
[2022-07-07 07:01] LABS: Magnesium 1.9 mg/dL (1.6-2.3)
[2022-07-07 08:00] VITALS: BP 124/71; PULSE 89; RESP 18; TEMP 36.9; O2SAT 100
[2022-07-07] MEDS: FAMOTIDINE 20 MG TABLET PO (08:54)
[2022-07-07] MEDS: CHOLECALCIFEROL 1,000 UNITS TABLET 1000 UNITS PO (08:54)
[2022-07-07] MEDS: APIXABAN 2.5 MG TABLET PO (08:54)
[2022-07-07] MEDS: SENNA/DOCUSATE SODIUM TABLET 2 TAB PO (08:54)
[2022-07-07] MEDS: polyethylene glycoL 3350 17 GM POWD.PACK PO (08:55)
[2022-07-07] MEDS: FOLIC ACID 1 MG TABLET PO (08:55)
[2022-07-07] MEDS: CELECOXIB 100 MG CAPSULE PO (08:55)
[2022-07-07 09:00] VITALS: PULSE 97
[2022-07-07] MEDS: FLECAINIDE ACETATE 100 MG TABLET PO (09:00)
[2022-07-07] MEDS: CEPHALEXIN 500 MG CAPSULE PO (12:13)
[2022-07-07 12:36] LABS: Vitamin D 25 Hydroxy 23.9 ng/mL
[2022-07-07 13:58] VITALS: BP 111/61; PULSE 85; RESP 18; TEMP 36.5; O2SAT 98
--- NOTE | 2022-07-07 14:35 | WPDANESPN ---
Anes - Prog Note Post-Op Date/Time: 07/07/22 14:35 Cardiovascular status: normal Respiratory status: normal Airway patency: baseline Mental status: baseline Post-Op hydration status: other (anemia) Vital Signs: Last Vital Signs Temp 97.7 F 07/07/22 13:58 Pulse 85 07/07/22 13:58 Resp 18 07/07/22 13:58 BP 111/61 07/07/22 13:58 Pulse Ox 98 07/07/22 13:58 O2 Del Method Room Air 07/07/22 07:57 O2 Flow Rate 10 07/06/22 12:15 Pain Score (VAS): 10/13 I/O: Intake & Output 07/06/22 07/07/22 07/07/22 23:59 07:59 15:59 Intake Total 2068 1100 480 Output Total 600 400 Balance 1468 700 480 Laboratory Tests 07/07/22 05:24 07/07/22 05:24 07/07/22 07/07/22 07/07/22 05:24 05:24 05:24 WBC 8.4 RBC 2.76 L Hgb 8.5 L Hct 25.3 L MCV 91.7 MCH 30.8 MCHC 33.6 RDW 16.4 H Plt Count 217 MPV 9.7 Immature Gran % (Auto) 0.6 H Neut % (Auto) 81.1 H Lymph % (Auto) 8.1 L [place] % (Auto) 10.0 H Eos % (Auto) 0.1 Baso % (Auto) 0.1 L Lymph # (Auto) 0.68 L [place]ha # (Auto) 0.8 H Eos # (Auto) 0.0 Baso # (Auto) 0.0 Abs Immat Gran (auto) 0.05 H Absolute Neuts (auto) 6.8 H Absolute Nucleated RBC 0.0 Nucleated RBC % 0.0 Sodium 130 L Potassium 4.5 Chloride 100 Carbon Dioxide 24 Anion Gap 6 L BUN 12 Creatinine 0.70 Estim Creat Clear Calc 53 Estimated GFR > 60 Glucose 106 Calcium 8.5 Magnesium 1.9 Vitamin D 25-Hydroxy 07/07/22 05:24 WBC RBC Hgb Hct MCV MCH MCHC RDW Plt Count MPV Immature Gran % (Auto) Neut % (Auto) Lymph % (Auto) Desha % (Auto) Eos % (Auto) Baso % (Auto) Lymph # (Auto) Desha # (Auto) Eos # (Auto) Baso # (Auto) Abs Immat Gran (auto) Absolute Neuts (auto) Absolute Nucleated RBC Nucleated RBC % Sodium Potassium Chloride Carbon Dioxide Anion Gap BUN Creatinine Estim Creat Clear Calc Estimated GFR Glucose Calcium Magnesium Vitamin D 25-Hydroxy 23.9 Post-procedural complaints: none Patient Feedback: Patient satisfied with anesthetic care.
== END 2022-07-07 15:22 | disposition home or self-care (01) ==
LOC: ANHSURGERY 05:58 → ANH3MEDSUR 13:26
PROVIDERS: Physician Assistant; Physician Assistant Surgical; PCP Internal Medicine; Visit Provider Orthopaedic Surgery
PROC: (CPT 27130; principal; 2022-07-06 07:30)
DX: M06.851 Other specified rheumatoid arthritis, right hip (principal); M16.11 Unilateral primary osteoarthritis, right hip; M65.851 Other synovitis and tenosynovitis, right thigh; I48.92 Unspecified atrial flutter; D64.9 Anemia, unspecified; Z79.01 Long term (current) use of anticoagulants
CPT/HCPCS: 27130; 36415; 73501; 80048; 80307; 82306; 83036; 83735; 85025; 86850; 86900; 86901; 87070; 87147; 87181; 87186; 97110; 97116; 97161; 97165; 97530; 97535; 99199; A9270; C1776; J0171; J0690; J1100; J1170; J1885; J2250; J2270; J2405; J2704; J2710; J2795; J3010; J3370; J7030; J7120

== ENCOUNTER 2022-07-09 14:49 | Outpatient (CLI) | payer MEDICARE, SELFPAY ==
[2022-07-09 15:07] LABS: Basophils Absolute Auto 0.03 K/mm3 (0.00-0.10); Basophils Percent Auto 0.4 % (0.0-1.0); Eosinophils Absolute Auto 0.05 K/mm3 (0.02-0.50); Eosinophils Percent Auto 0.6 % (1.0-6.0); Hematocrit 28.8 % (35.0-42.0); Hemoglobin 9.2 g/dL (11.7-13.8); Immature Granulocyte Absolute 0.11 K/mm3 (0.00-0.00); Immature Granulocyte Percent A 1.4 % (0.0-0.0); Lymphocytes Absolute Auto 0.82 K/mm3 (1.10-4.50); Lymphocytes Percent Auto 10.5 % (18.0-42.0); Mean Corpuscular HGB Conc 31.9 g/dL (32.0-36.0); Mean Corpuscular Hemoglobin 29.1 pg (27.0-31.0); Mean Corpuscular Volume 91.1 fL (78.0-102.0); Mean Platelet Volume 9.1 fl (9.2-11.8); Monocytes Absolute Auto 0.51 K/mm3 (0.10-0.90); Monocytes Percent Auto 6.5 % (2.0-11.0); Neutrophils Absolute Auto 6.3 K/mm3 (1.7-7.2); Neutrophils Percent Auto 80.6 % (50.0-70.0); Platelet Count Result 254 K/mm3 (150-420); Red Blood Count 3.16 M/mm3 (4.20-5.40); Red Cell Distribution Width 15.7 % (11.6-14.4); White Blood Count 7.8 K/mm3 (4.8-10.8)
== END 2022-07-09 14:50 | disposition home or self-care (01) ==
LOC: CHSLAB 14:51
PROVIDERS: PCP Internal Medicine; Visit Provider Physician Assistant Surgical
DX: M16.10 Unilateral primary osteoarthritis, unspecified hip (principal); D50.9 Iron deficiency anemia, unspecified
CPT/HCPCS: 36415; 85025

== ENCOUNTER 2022-08-14 12:24 | Outpatient (RCR) | payer MEDICARE, SELFPAY ==
[2022-08-14 12:51] LABS: Basophils Absolute Auto 0.03 K/mm3 (0.00-0.10); Basophils Percent Auto 0.6 % (0.0-1.0); Eosinophils Absolute Auto 0.06 K/mm3 (0.02-0.50); Eosinophils Percent Auto 1.2 % (1.0-6.0); Hematocrit 33.6 % (35.0-42.0); Hemoglobin 10.7 g/dL (11.7-13.8); Immature Granulocyte Absolute 0.01 K/mm3 (0.00-0.00); Immature Granulocyte Percent A 0.2 % (0.0-0.0); Lymphocytes Absolute Auto 0.84 K/mm3 (1.10-4.50); Lymphocytes Percent Auto 16.6 % (18.0-42.0); Mean Corpuscular HGB Conc 31.8 g/dL (32.0-36.0); Mean Corpuscular Hemoglobin 28.8 pg (27.0-31.0); Mean Corpuscular Volume 90.3 fL (78.0-102.0); Mean Platelet Volume 9.8 fl (9.2-11.8); Monocytes Absolute Auto 0.34 K/mm3 (0.10-0.90); Monocytes Percent Auto 6.7 % (2.0-11.0); Neutrophils Absolute Auto 3.8 K/mm3 (1.7-7.2); Neutrophils Percent Auto 74.7 % (50.0-70.0); Platelet Count Result 241 K/mm3 (150-420); Red Blood Count 3.72 M/mm3 (4.20-5.40); Red Cell Distribution Width 13.9 % (11.6-14.4); White Blood Count 5.1 K/mm3 (4.8-10.8)
[2022-08-14 13:06] LABS: Anion Gap 6 mmol/L (8-16); Blood Urea Nitrogen 14 mg/dL (7-18); Calcium 9.2 mg/dL (8.5-10.1); Carbon Dioxide 28 mmol/L (21-32); Chloride 101 mmol/L (98-108); Estimated Glomerular Filt Rate > 60; Glucose 88 mg/dL (70-99); Osmolality Calculated 279 mOsm/kg (285-295); Sodium 135 mmol/L (136-145)
[2022-08-14 13:36] LABS: Alanine Aminotransferase 16 U/L (14-59); Albumin Level 3.8 g/dL (3.4-5.0); Alkaline Phosphatase 104 U/L (46-116); Aspartate Amino Transferase 11 U/L (15-37); Bilirubin Direct 0.1 mg/dL (0-0.2); Bilirubin,Total 0.3 mg/dL (0.00-1.00); Total Protein 7.4 g/dL (6.4-8.2)
== END 2022-11-12 23:59 | disposition home or self-care (01) ==
LOC: CHSLAB 12:24
PROVIDERS: PCP Internal Medicine; Visit Provider Internal Medicine Rheumatology
DX: Z51.81 Encounter for therapeutic drug level monitoring (principal); Z79.899 Other long term (current) drug therapy
CPT/HCPCS: 36415; 80048; 80076; 85025

== ENCOUNTER 2022-11-17 14:51 | Outpatient (RCR) | payer MEDICARE, SELFPAY ==
[2022-11-17 15:11] LABS: Basophils Absolute Auto 0.03 K/mm3 (0.00-0.10); Basophils Percent Auto 0.5 % (0.0-1.0); Eosinophils Absolute Auto 0.09 K/mm3 (0.02-0.50); Eosinophils Percent Auto 1.6 % (1.0-6.0); Hematocrit 34.8 % (35.0-42.0); Hemoglobin 11.6 g/dL (11.7-13.8); Immature Granulocyte Absolute 0.03 K/mm3 (0.00-0.00); Immature Granulocyte Percent A 0.5 % (0.0-0.0); Lymphocytes Absolute Auto 1.07 K/mm3 (1.10-4.50); Lymphocytes Percent Auto 19.4 % (18.0-42.0); Mean Corpuscular HGB Conc 33.3 g/dL (32.0-36.0); Mean Corpuscular Hemoglobin 29.3 pg (27.0-31.0); Mean Corpuscular Volume 87.9 fL (78.0-102.0); Mean Platelet Volume 9.2 fl (9.2-11.8); Monocytes Absolute Auto 0.47 K/mm3 (0.10-0.90); Monocytes Percent Auto 8.5 % (2.0-11.0); Neutrophils Absolute Auto 3.8 K/mm3 (1.7-7.2); Neutrophils Percent Auto 69.5 % (50.0-70.0); Platelet Count Result 223 K/mm3 (150-420); Red Blood Count 3.96 M/mm3 (4.20-5.40); Red Cell Distribution Width 15.3 % (11.6-14.4); White Blood Count 5.5 K/mm3 (4.8-10.8)
[2022-11-17 15:54] LABS: Alanine Aminotransferase 19 U/L (14-59); Albumin Level 4.1 g/dL (3.4-5.0); Alkaline Phosphatase 87 U/L (46-116); Anion Gap 4 mmol/L (8-16); Aspartate Amino Transferase 12 U/L (15-37); Bilirubin Direct 0.1 mg/dL (0-0.2); Bilirubin,Total 0.2 mg/dL (0.00-1.00); Blood Urea Nitrogen 14 mg/dL (7-18); Calcium 8.8 mg/dL (8.5-10.1); Carbon Dioxide 30 mmol/L (21-32); Chloride 96 mmol/L (98-108); Estimated Glomerular Filt Rate > 60; Glucose 83 mg/dL (70-99); Osmolality Calculated 269 mOsm/kg (285-295); Potassium 4.4 mmol/L (3.5-5.1); Sodium 130 mmol/L (136-145); Total Protein 7.1 g/dL (6.4-8.2)
== END 2023-02-15 23:59 | disposition home or self-care (01) ==
LOC: CHSLAB 14:51
PROVIDERS: PCP Internal Medicine; Visit Provider Internal Medicine Rheumatology
DX: Z51.81 Encounter for therapeutic drug level monitoring (principal); Z79.899 Other long term (current) drug therapy
CPT/HCPCS: 36415; 80048; 80076; 85025

== ENCOUNTER 2023-02-10 15:33 | Outpatient (CLI) | payer MEDICARE, SELFPAY ==
[2023-02-10 15:54] LABS: Basophils Absolute Auto 0.04 K/mm3 (0.00-0.10); Basophils Percent Auto 0.9 % (0.0-1.0); Eosinophils Absolute Auto 0.09 K/mm3 (0.02-0.50); Eosinophils Percent Auto 1.9 % (1.0-6.0); Hemoglobin 11.2 g/dL (11.7-13.8); Immature Granulocyte Absolute 0.01 K/mm3 (0.00-0.00); Immature Granulocyte Percent A 0.2 % (0.0-0.0); Lymphocytes Absolute Auto 1.05 K/mm3 (1.10-4.50); Lymphocytes Percent Auto 22.4 % (18.0-42.0); Mean Corpuscular HGB Conc 33.9 g/dL (32.0-36.0); Mean Corpuscular Hemoglobin 30.9 pg (27.0-31.0); Mean Corpuscular Volume 91.2 fL (78.0-102.0); Mean Platelet Volume 9.3 fl (9.2-11.8); Monocytes Absolute Auto 0.38 K/mm3 (0.10-0.90); Monocytes Percent Auto 8.1 % (2.0-11.0); Neutrophils Absolute Auto 3.1 K/mm3 (1.7-7.2); Neutrophils Percent Auto 66.5 % (50.0-70.0); Platelet Count Result 207 K/mm3 (150-420); Red Blood Count 3.62 M/mm3 (4.20-5.40); Red Cell Distribution Width 13.4 % (11.6-14.4); White Blood Count 4.7 K/mm3 (4.8-10.8)
[2023-02-10 16:46] LABS: Alanine Aminotransferase 20 U/L (14-59); Alkaline Phosphatase 78 U/L (46-116); Anion Gap 11 mmol/L (8-16); Aspartate Amino Transferase 17 U/L (15-37); Bilirubin Direct 0.1 mg/dL (0-0.2); Bilirubin,Total 0.2 mg/dL (0.00-1.00); Blood Urea Nitrogen 15 mg/dL (7-18); Calcium 8.8 mg/dL (8.5-10.1); Carbon Dioxide 25 mmol/L (21-32); Chloride 102 mmol/L (98-108); Estimated Glomerular Filt Rate > 60; Ferritin 233 ng/mL (8-252); Glucose 87 mg/dL (70-99); Iron 57 ug/dL (50-170); Osmolality Calculated 285 mOsm/kg (285-295); Percent Iron Saturation 19 % (12-57); Potassium 4.3 mmol/L (3.5-5.1); Sodium 138 mmol/L (136-145); Total Protein 7.2 g/dL (6.4-8.2)
== END 2023-02-10 15:34 | disposition home or self-care (01) ==
PROVIDERS: PCP Internal Medicine; Visit Provider Internal Medicine Rheumatology
DX: Z51.81 Encounter for therapeutic drug level monitoring (principal); D50.9 Iron deficiency anemia, unspecified
CPT/HCPCS: 36415; 80048; 80076; 82728; 83540; 83550; 85025

== ENCOUNTER 2023-05-07 14:19 | Outpatient (CLI) | payer MEDICARE, SELFPAY ==
[2023-05-07 14:37] LABS: Basophils Absolute Auto 0.03 K/mm3 (0.00-0.10); Basophils Percent Auto 0.6 % (0.0-1.0); Eosinophils Absolute Auto 0.08 K/mm3 (0.02-0.50); Eosinophils Percent Auto 1.5 % (1.0-6.0); Hematocrit 34.9 % (35.0-42.0); Hemoglobin 11.6 g/dL (11.7-13.8); Immature Granulocyte Absolute 0.02 K/mm3 (0.00-0.00); Immature Granulocyte Percent A 0.4 % (0.0-0.0); Lymphocytes Absolute Auto 0.81 K/mm3 (1.10-4.50); Lymphocytes Percent Auto 15.5 % (18.0-42.0); Mean Corpuscular HGB Conc 33.2 g/dL (32.0-36.0); Mean Corpuscular Hemoglobin 30.3 pg (27.0-31.0); Mean Corpuscular Volume 91.1 fL (78.0-102.0); Mean Platelet Volume 9.4 fl (9.2-11.8); Monocytes Absolute Auto 0.39 K/mm3 (0.10-0.90); Monocytes Percent Auto 7.5 % (2.0-11.0); Neutrophils Absolute Auto 3.9 K/mm3 (1.7-7.2); Neutrophils Percent Auto 74.5 % (50.0-70.0); Nucleated Red Blood Cells Absolute Auto 0.03 K/mm3 (0.00-0.00); Nucleated Red Blood Cells Perc 0.6 % (0-0.0); Platelet Count Result 207 K/mm3 (150-420); Red Blood Count 3.83 M/mm3 (4.20-5.40); Red Cell Distribution Width 13.2 % (11.6-14.4); White Blood Count 5.2 K/mm3 (4.8-10.8)
[2023-05-07 15:43] LABS: Alanine Aminotransferase 22 U/L (14-59); Albumin Level 4.1 g/dL (3.4-5.0); Alkaline Phosphatase 79 U/L (46-116); Anion Gap 7 mmol/L (8-16); Aspartate Amino Transferase 13 U/L (15-37); Bilirubin Direct 0.1 mg/dL (0-0.2); Bilirubin,Total 0.4 mg/dL (0.00-1.00); Blood Urea Nitrogen 15 mg/dL (7-18); Calcium 9.2 mg/dL (8.5-10.1); Carbon Dioxide 29 mmol/L (21-32); Chloride 101 mmol/L (98-108); Estimated Glomerular Filt Rate > 60; Free T4 Free Thyroxine 0.98 ng/dL (0.76-1.46); Glucose 85 mg/dL (70-99); Osmolality Calculated 283 mOsm/kg (285-295); Potassium 4.8 mmol/L (3.5-5.1); Sodium 137 mmol/L (136-145); Thyroid Stimulating Hormone 0.97 uIU/mL (0.36-3.74); Total Protein 6.9 g/dL (6.4-8.2); Vitamin B12 294 pg/mL (193-986)
[2023-05-07 15:47] LABS: Folic Acid > 20.0 ng/mL (8.6->20)
[2023-05-13 21:21] LABS: Vitamin D 25 Hydroxy 30 ng/mL (30-100)
== END 2023-05-07 14:20 | disposition home or self-care (01) ==
LOC: CHSLAB 14:21
PROVIDERS: PCP Internal Medicine; Visit Provider Internal Medicine Rheumatology
DX: Z51.81 Encounter for therapeutic drug level monitoring (principal); R53.83 Other fatigue; E55.9 Vitamin D deficiency, unspecified; E53.8 Deficiency of other specified B group vitamins
CPT/HCPCS: 36415; 80048; 80076; 82306; 82607; 82746; 84439; 84443; 85025

== ENCOUNTER 2023-08-03 12:00 | Outpatient (CLI) | payer MEDICARE, SELFPAY ==
[2023-08-03 12:21] LABS: Basophils Absolute Auto 0.04 K/mm3 (0.00-0.10); Basophils Percent Auto 0.9 % (0.0-1.0); Eosinophils Absolute Auto 0.07 K/mm3 (0.02-0.50); Eosinophils Percent Auto 1.5 % (1.0-6.0); Immature Granulocyte Absolute 0.02 K/mm3 (0.00-0.00); Immature Granulocyte Percent A 0.4 % (0.0-0.0); Immature Reticulocyte Fraction 6.1 % (2.0-16.52); Lymphocytes Absolute Auto 0.73 K/mm3 (1.10-4.50); Lymphocytes Percent Auto 15.5 % (18.0-42.0); Mean Corpuscular HGB Conc 33.3 g/dL (32.0-36.0); Mean Corpuscular Hemoglobin 30.3 pg (27.0-31.0); Mean Corpuscular Volume 90.9 fL (78.0-102.0); Mean Platelet Volume 9.4 fl (9.2-11.8); Monocytes Absolute Auto 0.45 K/mm3 (0.10-0.90); Monocytes Percent Auto 9.6 % (2.0-11.0); Neutrophils Absolute Auto 3.4 K/mm3 (1.7-7.2); Neutrophils Percent Auto 72.1 % (50.0-70.0); Platelet Count Result 232 K/mm3 (150-420); Red Blood Count 3.96 M/mm3 (4.20-5.40); Red Cell Distribution Width 13.1 % (11.6-14.4); Reticulocyte Hemoglobin Conten 33.5 pg (28.0-35.0); Reticulocyte Percent 0.98 % (0.50-1.50); Reticulocytes Absolute 0.04 M/mm3 (0.02-0.1); White Blood Count 4.7 K/mm3 (4.8-10.8)
[2023-08-03 13:30] LABS: Alanine Aminotransferase 17 U/L (14-59); Albumin Level 3.8 g/dL (3.4-5.0); Alkaline Phosphatase 77 U/L (46-116); Anion Gap 6 mmol/L (8-16); Aspartate Amino Transferase < 10 U/L (15-37); Bilirubin Direct 0.1 mg/dL (0-0.2); Bilirubin,Total 0.4 mg/dL (0.00-1.00); Blood Urea Nitrogen 12 mg/dL (7-18); Calcium 9.6 mg/dL (8.5-10.1); Carbon Dioxide 30 mmol/L (21-32); Chloride 100 mmol/L (98-108); Estimated Glomerular Filt Rate > 60; Ferritin 265 ng/mL (8-252); Folic Acid > 20.0 ng/mL (8.6->20); Glucose 76 mg/dL (70-99); Iron 64 ug/dL (50-170); Osmolality Calculated 280 mOsm/kg (285-295); Percent Iron Saturation 20 % (12-57); Potassium 4.7 mmol/L (3.5-5.1); Sodium 136 mmol/L (136-145); Total Protein 6.9 g/dL (6.4-8.2); Vitamin B12 628 pg/mL (193-986)
[2023-08-06 14:40] LABS: Methylmalonic Acid 109 nmol/L (87-318)
[2023-08-07 12:37] LABS: Homocysteine 10.9 umol/L (<10.4)
== END 2023-08-03 12:01 | disposition home or self-care (01) ==
LOC: CHSLAB 12:05
PROVIDERS: PCP Internal Medicine; Visit Provider Internal Medicine Rheumatology
DX: D50.9 Iron deficiency anemia, unspecified (principal)
CPT/HCPCS: 36415; 80048; 80076; 82607; 82728; 82746; 83090; 83540; 83550; 83921; 85025; 85046

== ENCOUNTER 2023-10-11 10:26 | Outpatient (CLI) | payer MEDICARE, SELFPAY ==
--- NOTE | ~2023-10-11 | XR_ITS ---
EXAMINATION: XR chest 2V DATE: 10/11/2023 11:17 INDICATION: Unilateral inguinal hernia without obstruction. TECHNIQUE: Frontal and lateral views of the chest were obtained. COMPARISON: Chest single view 02/07/2017, chest CT 12/26/2020 FINDINGS: There is mild scarring at the lung apices. No pleural effusion or pneumothorax. Cardiomegal y is noted. Pectus excavatum is noted. IMPRESSION: 1. Mild scarring at the lung apices. 2. Cardiomegaly. Reviewed, dictated and finalized at location A. TY REPRESENTATIVE
--- NOTE | 2023-10-11 10:35 | ECG_ITS ---
Measurements Intervals [place] Rate: 82 P: 70 GA: 153 QRS: -14 QRSD: 110 T: 38 QT: 371 QTc: 434 Interpretive Statements SINUS RHYTHM INCOMPLETE RIGHT BUNDLE BRANCH BLOCK DELAYED PRECORDIAL R/S TRANSITION BASELINE ARTIFACT- I, AVR, V1 BORDERLINE ECG NO PREVIOUS ECG AVAILABLE FOR COMPARISON Electronically Signed On 10-11-2023 10:57:36 NURSE ADMINISTRATOR by Pieter Day D.O.
[2023-10-11 11:17] LABS: Basophils Percent Auto 0.7 % (0.2-1.2); Eosinophils Absolute Auto 0.1 K/mm3 (0-0.3); Eosinophils Percent Auto 1.1 % (0-4.4); Hematocrit 36.2 % (37.0-47.0); Hemoglobin 12.1 g/dL (12.0-15.0); Immature Granulocyte Absolute 0.02 K/mm3 (0.00-0.031); Immature Granulocyte Percent A 0.4 % (0-0.5); Lymphocytes Absolute Auto 0.85 K/mm3 (0.9-3.2); Lymphocytes Percent Auto 15.8 % (18.3-44.2); Mean Corpuscular HGB Conc 33.4 g/dl (32-36); Mean Corpuscular Hemoglobin 30.2 pg (26-34); Mean Corpuscular Volume 90.3 fl (80-100); Mean Platelet Volume 9.6 fl (7.4-10.4); Monocytes Absolute Auto 0.5 K/mm3 (0.1-0.6); Monocytes Percent Auto 9.1 % (2.6-8.5); Neutrophils Absolute Auto 3.9 K/mm3 (1.3-6.7); Neutrophils Percent Auto 72.9 % (45.5-73.1); Platelet Count Result 209 k/mm3 (150-375); Red Blood Count 4.01 M/mm3 (4.2-5.4); Red Cell Distribution Width 13.3 % (11.5-14.5); White Blood Count 5.4 K/mm3 (4.5-10.0)
[2023-10-11 11:26] LABS: Anion Gap 7 mmol/L (8-16); Blood Urea Nitrogen 14 mg/dL (7-17); Calcium 9.5 mg/dL (8.4-10.2); Carbon Dioxide 29 mmol/L (22-30); Chloride 101 mmol/L (98-107); Estimated Glomerular Filt Rate > 60; Glucose 81 mg/dL (65-110); Potassium 4.6 mmol/L (3.4-5.0); Sodium 137 mmol/L (137-145)
== END 2023-10-11 10:27 | disposition home or self-care (01) ==
LOC: ANHSURGERY 10:29
PROVIDERS: PCP Internal Medicine; Visit Provider Surgery
DX: Z01.812 Encounter for preprocedural laboratory examination (principal); Z01.810 Encounter for preprocedural cardiovascular examination; Z01.811 Encounter for preprocedural respiratory examination; K40.90 Unilateral inguinal hernia, without obstruction or gangrene, not specified as recurrent; I51.7 Cardiomegaly; I45.10 Unspecified right bundle-branch block
CPT/HCPCS: 36415; 71046; 80048; 85025; 86850; 86900; 86901; 93005

== ENCOUNTER 2023-10-12 02:58 | Day surgery (SDC) | payer MEDICARE, SELFPAY ==
[2023-10-08 13:57] VITALS: BMI 20.9
--- NOTE | 2023-10-08 14:18 | PC.NURSE ---
Report to the Outpatient Waiting Room, entrance under the green pavilion located off [facility], at time ___11:30AM____ on date __10/12/23 . Planned Procedure Time: __1:30PM . Time changes happen often and if your time is changed the preop area will call you the afternoon before. - You and your visitor will be asked to self-screen and do not enter if you have any COVID symptoms. - A mask is optional within the hospital at this time. Patients may have clear liquids (water, carbonated beverages, clear teas, apple juice) until 3 hours prior to surgery with a maximum of 20 ounces. - No food from midnight until time of surgery. Take the following medications with a SIP of water the morning of surgery: ____ACYCLOVIR, FLECAINIDE DO NOT STOP ANY OF YOUR OTHER PRESCRIPTION MEDICATIONS PRIOR TO SURGERY ?EXCEPT THE FOLLOWING Medications to discontinue per physician ___HOLD ELIQUIS 2 DAYS PRE-OP- LAST DOSE 10/09/23. HOLD ALL VITAMINS/SUPPLEMENTS 3 DAYS PRE-OP PER ANESTHESIA- LAST DOSE 10/08/23. Please no make-up, nail uruguayan, hairspray, perfume, deodorant, or body powder the day of surgery. No jewelry (including any body piercings) or valuables the day of surgery, leave them at home. Please take a shower or bath the night before, or the morning of, surgery with an antibacterial soap. Wear comfortable, loose fitting clothing. - Jewelry must be removed prior to entering the operating room. Rings and piercings that are not removed may be cut off. - The hospital will not accept responsibility for valuables. - Please leave all valuables, including medications, at home the day of surgery. If you are going home after surgery, a licensed team cdl driver must drive you home. - NO public transportation without another adult if you receive anesthesia. - We recommend that an adult stay with you for 24 hours following discharge. - We also recommend that you do not drive, make important decision, drink alcoholic beverages, or take any drugs that were not prescribed by your health care provider for at least 24 hours after your discharge time. Follow any additional instructions given to you from your surgeon. If you or anyone in your household have experienced Covid symptoms in the past week, please notify your surgeon or the nurse liaison at the phone number below for possible testing. Telephone instructions given to __PATIENT and asked if any additional questions and then verbalized understanding. Patient advised to call surgeon office or pre surgery nurse liaison [phone] if any additional questions.
[2023-10-12] VITALS (10 sets, daily range): BP systolic 135–160; BP diastolic 51–87; PULSE 60–77; RESP 12–18; TEMP 36.1–36.9; O2SAT 96–100
--- NOTE | 2023-10-12 09:40 | PM.SD2 ---
Same Day Admit/Disch: HPI History of Present Illness Chief complaint: Rt Ing Hernia Narrative: Enedina Mehta is a 78 year old female who last summer noticed a bulge in the right groin. It has gotten bigger but is not really been painful. She has had no constipation or trouble voiding. She was seen in the office and found to have a broad-based right inguinal hernia. She is taken to surgery at this time for robotic laparoscopic repair with mesh. She does take Eliquis for history of atrial fibrillation which has been held for surgery. [facility] Past Medical History Medical History Anemia Chronic anticoagulation Paroxysmal atrial flutter Rheumatoid arthritis Surgical History Surgical History History of left hip replacement (12/2021) History of right hip replacement (07/06/22) Family History Family History Other Family history non-contributory Social History Social History Social History: Surrogate medical decision maker: Jaymie Schuster, daughter. Code status: Full code. Smoking status: Never smoker Alcohol intake: never Substance use: never Substance use type: does not use Living arrangements: with family Additional living arrangements comments: DAUGHTER & ANANDA Spiritual care concerns: No Same Day Admit/Disch: Med Pre-admit Medications Home Medications Medication Instructions Recorded Confirmed Type flecainide 100 mg tablet 50 mg PO Q12H 01/07/21 10/08/23 History calcium carbonate 500 mg-vitamin 1 tablet PO DAILY 11/24/21 10/08/23 History D3 3.125 mcg (125 unit) tablet cholecalciferol (vitamin D3) 25 25 mcg PO DAILY 11/24/21 10/08/23 History mcg (1,000 unit) tablet folic acid 1 mg tablet 1 mg PO DAILY 06/18/22 10/08/23 History methotrexate sodium 2.5 mg tablet 7.5 mg PO WEEKLY 06/18/22 10/08/23 History apixaban 2.5 mg tablet (Eliquis) 2.5 mg PO Q12HR #13 tabs 07/07/22 10/08/23 Rx acyclovir 800 mg tablet 800 mg PO DAILY 10/08/23 10/08/23 History ibuprofen 600 mg tablet 600 mg PO Q6H PRN pain #14 tabs 10/12/23 Rx oxycodone-acetaminophen 5 mg-325 0.5 - 1 tablet PO Q6H PRN pain #10 10/12/23 Rx mg tablet tabs Review of Systems Review of Systems All systems reviewed & are unremarkable except as noted in HPI and below (HPI) Exam Const: General: comfortable, no acute distress, alert and awake HENMT: Head: normocephalic and atraumatic Mouth: Yes Normal oral and palatal mucosa present Eyes: Conjunctivae: conjunctivae normal Pupils: Equal, round and reactive pupils present EOM: EOMs intact bilaterally Neck: Neck: normal visual inspection, no lymphadenopathy and nontender Resp: Effort & Inspection: normal respiratory effort Auscultation: clear to auscultation bilaterally Cardio: Rate: regular rate Rhythm: regular rhythm Heart sounds: no gallops, no murmurs and no rubs GI: Inspection: non-distended, scaphoid and visible herniation (Right groin) GI Palp: Yes Soft to palpation, No Tenderness to palpation present (GI), No Hepatomegaly present, No Splenomegaly present and Yes Hernia present (Reducible right inguinal hernia. No left-sided hernias or femoral hernias) Auscultation: normal bowel sounds Skin: Lesions: no lesions Rashes: no rashes Neuro: General: no focal motor deficits and CN's II-XI intact bilaterally Cranial nerves: Yes Equal, round and reactive pupils present, Yes Bilaterally intact EOM present, Yes facial symmetry and Yes Midline tongue present Speech: normal speech Motor exam (neuro): 5/5 motor strength present throughout and Motor abnormalities not present Extrem: General: no clubbing, cyanosis or edema and edema Psych: Affect: normal affect Thought process: Normal thought process present Insight: Good insight present (Psych)
[2023-10-12] MEDS: LACTATED RINGERS 1,000 ML 30 ML IV CONT ×3 (10:25→16:24)
[2023-10-12] MEDS: ACETAMINOPHEN 500 MG TABLET 1000 MG PO (10:27)
[2023-10-12] MEDS: KETOROLAC 15 MG/ML VIAL (*BKC) IV PUSH (10:27)
--- NOTE | 2023-10-12 12:18 | SUR.PREOP ---
PT INFORMED OF SURGERY TIME DELAY, WARM BLANKET GIVEN, DENIES ANY NEEDS AT THIS TIME
--- NOTE | 2023-10-12 12:31 | WPDHPUPDATE1 ---
History and Physical Update Update Date/Time: 10/12/23 12:31 History and Physical has been reviewed, including an updated exam of the patient. There are NO changes in the patient's condition. Risks, benefits, and alternatives have been discussed and questions answered. Patient agrees to proceed with procedure.
--- NOTE | 2023-10-12 12:50 | P.PNAN_ITS ---
Anes - Initial Pre Proc Eval Procedure: Operation Date: 10/12/23 12:00 Proposed Procedures p Robotic Laparoscopic Repair Right Inguinal Hernia with Mesh - Kimani Chavez MD Date/Time: 10/12/23 12:50 Surgeon: Kimani Chavez MD Pre Op Diagnosis: Rt Ing Hernia Patient Data Age: 78 Gender: F Height: 1.68 m Weight: 59.4 kg Last Vital Signs Temp 36.9 C 10/12/23 09:54 Pulse 69 10/12/23 09:54 Resp 18 10/12/23 09:54 BP 149/87 H 10/12/23 09:54 Pulse Ox 100 10/12/23 09:54 O2 Del Method Room Air 10/12/23 09:54 Allergies Allergy/AdvReac Type Severity Reaction Status Date / Time No Known Allergies Allergy Verified 10/08/23 13:49 Home Medications Medication Instructions Recorded Confirmed Type flecainide 100 mg tablet 50 mg PO Q12H 01/07/21 10/08/23 History calcium carbonate 500 mg-vitamin 1 tablet PO DAILY 11/24/21 10/08/23 History D3 3.125 mcg (125 unit) tablet cholecalciferol (vitamin D3) 25 25 mcg PO DAILY 11/24/21 10/08/23 History mcg (1,000 unit) tablet folic acid 1 mg tablet 1 mg PO DAILY 06/18/22 10/08/23 History methotrexate sodium 2.5 mg tablet 7.5 mg PO WEEKLY 06/18/22 10/08/23 History apixaban 2.5 mg tablet (Eliquis) 2.5 mg PO Q12HR #13 tabs 07/07/22 10/08/23 Rx acyclovir 800 mg tablet 800 mg PO DAILY 10/08/23 10/08/23 History Patient hx anesthesia problems: none Family hx anesthesia problems: none Results Review: All pre-operative results and documents have been reviewed as part of the pre- operative evaluation. [facility] Past Medical History Medical History Anemia Chronic anticoagulation Paroxysmal atrial flutter Rheumatoid arthritis Surgical History Surgical History History of left hip replacement (12/2021) History of right hip replacement (07/06/22) Family History Family History Other Family history non-contributory Social History Social History Social History: Surrogate medical decision maker: Jaymie Schuster, daughter. Code status: Full code. Smoking status: Never smoker Alcohol intake: never Substance use: never Substance use type: does not use Living arrangements: with family Additional living arrangements comments: DAUGHTER & ANANDA Spiritual care concerns: No Anes - Eval Final PreProcedure Day of Procedure 10/12/23 12:50 Patient weight: normal Heart: regular rate and rhythm Lungs: clear to auscultation Airway: Mallampati scale class II Neurological: alert and oriented Last oral intake: >/= 8 hours ASA classification: III Emergent: no Anesthetic plan: proceed Anesthesia type and monitoring: general ETT and standard monitoring Results Review: All pre-operative results and documents have been reviewed as part of the pre- operative evaluation. Informed Consent: The patient's anesthetic plan and its attendant risks and benefits were discussed with the patient/family/POA. Questions were solicited and answers provided to the satisfaction of the patient/family/POA.
[2023-10-12] MEDS: ceFAZolin 2 GM/D5W 50 ML 2 GM/50 ML BAG IVPB (12:55)
[2023-10-12] MEDS: BUPIVACAINE/EPINEPHRINE 0.5% 30 ML VIAL INFILTRATE (13:31)
--- NOTE | 2023-10-12 14:46 | W.PM.PROC2 ---
Procedure Note - Detailed Date of Procedure 10/12/23 Pre-op Diagnosis Rt Ing Hernia Post-op Diagnosis Same Procedure Performed Robotic laparoscopic repair right inguinal hernia with mesh Surgeon Kimani Chavez MD Mechanical Developer Prover Lg [facility]ACO Anesthesia General and Local Indications Patient developed a bulge in the right groin about 6 months ago. It has gotten larger and is broad-based. She is taken to surgery now for repair. Findings Indirect hernia. No bowel involvement. Description of Procedure Patient was taken to surgery and induced into general anesthesia. The abdomen is prepped and draped. Robotic trocars were placed in the usual fashion 1st using a 5 mm applied Medical optical trocar patient was placed in Trendelenburg. The robot was brought into the field. The camera was docked and targeted. The 2 working ports had instruments placed in were positioned appropriately. The surgeon broke scrub and went to the robotic console. A peritoneal flap was opened above the inguinal canal. This was opened from lateral to medial going over to the median umbilical ligament. The flap was then developed posteriorly. Inferior epigastric vessels were avoided. Medially, we stayed close to the right rectus abdominis which led us down to Michael's ligament and the pubis. Dissection extended beyond the midline exposing the medial aspect of the left rectus muscle. Additional dissection was done laterally. Dissection was then done in the area of the hernia. The hernia sac was gently reduced. Transversalis fibers were slowly divided and the hernia sac was eventually able to be completely reduced. Some lipomatous tissue in the canal was also reduced. Cautery was used for hemostasis but generally hemostasis was excellent. The round ligament was retracted and then divided with the cautery. We continued dissection of the hernia sac in the peritoneal edge so that it was at least 4 cm below the lower margin of the hernia defect and 2 cm posterior to the pubis and Michael's ligament. Laterally it was dissected to the same extent. A 17 x 12 cm 3DMax mid right mesh was then placed over the area the hernia and other inguinal canal structures. Once positioned, the mesh was sutured in place with 3-0 Vicryl. Sutures were placed in Michael's ligament as well as in the anterior abdominal wall medial and lateral to the inferior epigastric vessels. Once the mesh was in place, 3 0 V lock suture was used to close the peritoneal flap starting laterally and proceeding medially until the flap was completely closed. All looked good. We removed the 2 needles from the peritoneal cavity. Instruments were removed and the robot was undocked. Trocars were removed. Skin wounds were closed with subcuticular 4-0 Monocryl skin suture. The wounds were dressed with Exofin surgical adhesive. Patient was awakened and taken to recovery in good condition. Sponge and needle counts were correct x2. Implants 17 x 12 cm right mid 3DMax mesh Estimated Blood Loss -5 Drains No Packing No Pathology None sent Complications No immediate complications Condition Stable Disposition PACU [facility] Billing Surgery - Charge Forward: Surgery Billing (Robotic laparoscopic repair right inguinal hernia with mesh)
--- NOTE | 2023-10-12 17:22 | SUR.PHASEII ---
pt has successfully urinated and discharged home with daughter.
--- NOTE | 2023-10-12 17:24 | SUR.PHASEII ---
waiting on pt ride currently. maria del rosario called, pt daughter, stated she will be here in 15 minutes.
== END 2023-10-12 17:40 | disposition home or self-care (01) ==
PROVIDERS: PCP Internal Medicine; Visit Provider Surgery
PROC: 8E0Y4CZ Robotic Assisted Procedure of Lower Extremity, Percutaneous Endoscopic Approach (ICD-10-PCS; CPT 49650; principal; 2023-10-12 12:00)
DX: K40.90 Unilateral inguinal hernia, without obstruction or gangrene, not specified as recurrent (principal); I48.92 Unspecified atrial flutter; M06.9 Rheumatoid arthritis, unspecified; D64.9 Anemia, unspecified; Z79.01 Long term (current) use of anticoagulants
CPT/HCPCS: 49650; S2900; 36415; 71046; 80048; 85025; 86850; 86900; 86901; 93005; A9270; C1781; J0690; J1100; J1885; J2405; J2704; J3010; J7030; J7120

== ENCOUNTER 2023-10-21 14:51 | Outpatient (RCR) | payer MEDICARE, SELFPAY ==
[2023-10-21 15:15] LABS: Basophils Absolute Auto 0.05 K/mm3 (0.00-0.10); Basophils Percent Auto 0.8 % (0.0-1.0); Eosinophils Absolute Auto 0.13 K/mm3 (0.02-0.50); Eosinophils Percent Auto 2.1 % (1.0-6.0); Hematocrit 33.3 % (35.0-42.0); Immature Granulocyte Absolute 0.02 K/mm3 (0.00-0.00); Immature Granulocyte Percent A 0.3 % (0.0-0.0); Lymphocytes Absolute Auto 1.06 K/mm3 (1.10-4.50); Lymphocytes Percent Auto 17.3 % (18.0-42.0); Mean Corpuscular Hemoglobin 29.3 pg (27.0-31.0); Mean Corpuscular Volume 88.8 fL (78.0-102.0); Mean Platelet Volume 9.2 fl (9.2-11.8); Monocytes Absolute Auto 0.52 K/mm3 (0.10-0.90); Monocytes Percent Auto 8.5 % (2.0-11.0); Neutrophils Absolute Auto 4.4 K/mm3 (1.7-7.2); Platelet Count Result 233 K/mm3 (150-420); Red Blood Count 3.75 M/mm3 (4.20-5.40); Red Cell Distribution Width 13.1 % (11.6-14.4); White Blood Count 6.1 K/mm3 (4.8-10.8)
[2023-10-21 16:01] LABS: Alanine Aminotransferase 19 U/L (14-59); Albumin Level 3.7 g/dL (3.4-5.0); Alkaline Phosphatase 78 U/L (46-116); Anion Gap 12 mmol/L (8-16); Aspartate Amino Transferase 14 U/L (15-37); Bilirubin Direct 0.1 mg/dL (0-0.2); Bilirubin,Total 0.3 mg/dL (0.00-1.00); Blood Urea Nitrogen 15 mg/dL (7-18); Calcium 8.5 mg/dL (8.5-10.1); Carbon Dioxide 24 mmol/L (21-32); Chloride 99 mmol/L (98-108); Estimated Glomerular Filt Rate > 60; Glucose 101 mg/dL (70-99); Osmolality Calculated 280 mOsm/kg (285-295); Potassium 4.3 mmol/L (3.5-5.1); Sodium 135 mmol/L (136-145); Total Protein 6.7 g/dL (6.4-8.2)
== END 2024-01-19 23:59 | disposition home or self-care (01) ==
LOC: CHSLAB 14:51
PROVIDERS: PCP Internal Medicine; Visit Provider Internal Medicine Rheumatology
DX: Z51.81 Encounter for therapeutic drug level monitoring (principal); Z79.899 Other long term (current) drug therapy
CPT/HCPCS: 36415; 80048; 80076; 85025

== ENCOUNTER 2024-01-29 17:07 | Outpatient (CLI) | payer MEDICARE, SELFPAY ==
[2024-01-29 17:55] LABS: Basophils Absolute Auto 0.03 K/mm3 (0.00-0.10); Basophils Percent Auto 0.6 % (0.0-1.0); Eosinophils Absolute Auto 0.09 K/mm3 (0.02-0.50); Eosinophils Percent Auto 1.7 % (1.0-6.0); Hematocrit 35.4 % (35.0-42.0); Hemoglobin 11.3 g/dL (11.7-13.8); Immature Granulocyte Absolute 0.01 K/mm3 (0.00-0.00); Immature Granulocyte Percent A 0.2 % (0.0-0.0); Lymphocytes Absolute Auto 1.18 K/mm3 (1.10-4.50); Lymphocytes Percent Auto 22.3 % (18.0-42.0); Mean Corpuscular HGB Conc 31.9 g/dL (32-36); Mean Corpuscular Hemoglobin 28.7 pg (27.0-31.0); Mean Corpuscular Volume 89.8 fL (78.0-102.0); Mean Platelet Volume 9.7 fl (9.2-11.8); Monocytes Absolute Auto 0.41 K/mm3 (0.10-0.90); Monocytes Percent Auto 7.8 % (2.0-11.0); Neutrophils Absolute Auto 3.56 K/mm3 (1.70-7.20); Neutrophils Percent Auto 67.4 % (50.0-70.0); Platelet Count Result 211 K/mm3 (150-420); Red Blood Count 3.94 M/mm3 (4.20-5.40); Red Cell Distribution Width 13.4 % (11.6-14.4); White Blood Count 5.3 K/mm3 (4.8-10.8)
[2024-01-29 20:48] LABS: Alanine Aminotransferase 20 U/L (14-59); Albumin Level 3.9 g/dL (3.4-5.0); Alkaline Phosphatase 73 U/L (46-116); Anion Gap 9 mmol/L (4-12); Aspartate Amino Transferase 19 U/L (15-37); Bilirubin Direct 0.1 mg/dL (0-0.2); Bilirubin,Total 0.3 mg/dL (0.00-1.00); Blood Urea Nitrogen 19 mg/dL (7-18); Carbon Dioxide 28 mmol/L (21-32); Chloride 101 mmol/L (98-108); Estimated Glomerular Filt Rate > 60; Ferritin 233 ng/mL (8-252); Glucose 77 mg/dL (70-99); Iron 41 ug/dL (50-170); Osmolality Calculated 287 mOsm/kg (285-295); Potassium 4.2 mmol/L (3.5-5.1); Sodium 138 mmol/L (136-145); Total Protein 7.4 g/dL (6.4-8.2); Vitamin B12 620 pg/mL (193-986)
== END 2024-01-29 17:08 | disposition home or self-care (01) ==
LOC: CHSLAB 17:10
PROVIDERS: PCP Internal Medicine; Visit Provider Internal Medicine Rheumatology
DX: D50.9 Iron deficiency anemia, unspecified (principal); E86.0 Dehydration
CPT/HCPCS: 36415; 80053; 82248; 82607; 82728; 83540; 85025

== ENCOUNTER 2024-04-20 14:06 | Outpatient (CLI) | payer MEDICARE, SELFPAY ==
[2024-04-20 14:52] LABS: Basophils Absolute Auto 0.03 K/mm3 (0.00-0.10); Basophils Percent Auto 0.3 % (0.0-1.0); Eosinophils Absolute Auto 0.07 K/mm3 (0.02-0.50); Eosinophils Percent Auto 0.8 % (1.0-6.0); Hematocrit 37.5 % (35.0-42.0); Hemoglobin 12.9 g/dL (11.7-13.8); Immature Granulocyte Absolute 0.03 K/mm3 (0.00-0.00); Immature Granulocyte Percent A 0.3 % (0.0-0.0); Lymphocytes Absolute Auto 0.93 K/mm3 (1.10-4.50); Lymphocytes Percent Auto 10.6 % (18.0-42.0); Mean Corpuscular HGB Conc 34.4 g/dL (32-36); Mean Corpuscular Hemoglobin 30.9 pg (27.0-31.0); Mean Corpuscular Volume 89.7 fL (78.0-102.0); Mean Platelet Volume 9.4 fl (9.2-11.8); Monocytes Absolute Auto 0.46 K/mm3 (0.10-0.90); Monocytes Percent Auto 5.3 % (2.0-11.0); Neutrophils Absolute Auto 7.22 K/mm3 (1.70-7.20); Neutrophils Percent Auto 82.7 % (50.0-70.0); Platelet Count Result 206 K/mm3 (150-420); Red Blood Count 4.18 M/mm3 (4.20-5.40); Red Cell Distribution Width 13.7 % (11.6-14.4); White Blood Count 8.7 K/mm3 (4.8-10.8)
[2024-04-20 15:57] LABS: Alanine Aminotransferase 21 U/L (14-59); Albumin Level 4.4 g/dL (3.4-5.0); Alkaline Phosphatase 88 U/L (46-116); Anion Gap 11 mmol/L (4-12); Aspartate Amino Transferase 18 U/L (15-37); Bilirubin Direct 0.1 mg/dL (0-0.2); Bilirubin,Total 0.4 mg/dL (0.00-1.00); Blood Urea Nitrogen 18 mg/dL (7-18); Calcium 9.4 mg/dL (8.5-10.1); Carbon Dioxide 26 mmol/L (21-32); Chloride 99 mmol/L (98-108); Estimated Glomerular Filt Rate > 60; Ferritin 274 ng/mL (8-252); Glucose 112 mg/dL (70-99); Iron 84 ug/dL (50-170); Osmolality Calculated 284 mOsm/kg (285-295); Potassium 4.9 mmol/L (3.5-5.1); Sodium 136 mmol/L (136-145); Total Protein 7.5 g/dL (6.4-8.2)
== END 2024-04-20 14:07 | disposition home or self-care (01) ==
LOC: CHSLAB 14:09
PROVIDERS: PCP Internal Medicine; Visit Provider Internal Medicine Rheumatology
DX: Z51.81 Encounter for therapeutic drug level monitoring (principal); D64.9 Anemia, unspecified
CPT/HCPCS: 36415; 80048; 80076; 82728; 83540; 85025

== ENCOUNTER 2024-10-12 15:26 | Outpatient (RCR) | payer MEDICARE, SELFPAY ==
[2024-07-14 14:57] LABS: Basophils Absolute Auto 0.04 K/mm3 (0.00-0.10); Basophils Percent Auto 0.7 % (0.0-1.0); Eosinophils Absolute Auto 0.17 K/mm3 (0.02-0.50); Eosinophils Percent Auto 2.8 % (1.0-6.0); Hematocrit 33.8 % (35.0-42.0); Hemoglobin 11.4 g/dL (11.7-13.8); Immature Granulocyte Absolute 0.03 K/mm3 (0.00-0.00); Immature Granulocyte Percent A 0.5 % (0.0-0.0); Lymphocytes Percent Auto 21.5 % (18.0-42.0); Mean Corpuscular HGB Conc 33.7 g/dL (32-36); Mean Corpuscular Hemoglobin 30.2 pg (27.0-31.0); Mean Corpuscular Volume 89.7 fL (78.0-102.0); Monocytes Absolute Auto 0.51 K/mm3 (0.10-0.90); Monocytes Percent Auto 8.4 % (2.0-11.0); Neutrophils Percent Auto 66.1 % (50.0-70.0); Platelet Count Result 207 K/mm3 (150-420); Red Blood Count 3.77 M/mm3 (4.20-5.40); Red Cell Distribution Width 13.2 % (11.6-14.4); White Blood Count 6.1 K/mm3 (4.8-10.8)
[2024-07-14 15:42] LABS: Alanine Aminotransferase 20 U/L (14-59); Albumin Level 3.8 g/dL (3.4-5.0); Alkaline Phosphatase 77 U/L (46-116); Anion Gap 5 mmol/L (4-12); Aspartate Amino Transferase 17 U/L (15-37); Bilirubin Direct 0.1 mg/dL (0-0.2); Bilirubin,Total 0.3 mg/dL (0.00-1.00); Blood Urea Nitrogen 19 mg/dL (7-18); Calcium 9.3 mg/dL (8.5-10.1); Carbon Dioxide 29 mmol/L (21-32); Chloride 101 mmol/L (98-108); Estimated Glomerular Filt Rate > 60; Glucose 108 mg/dL (70-99); Osmolality Calculated 283 mOsm/kg (285-295); Potassium 4.3 mmol/L (3.5-5.1); Sodium 135 mmol/L (136-145); Total Protein 6.6 g/dL (6.4-8.2)
[2024-10-12 15:37] LABS: Basophils Absolute Auto 0.03 K/mm3 (0.00-0.10); Basophils Percent Auto 0.5 % (0.0-1.0); Eosinophils Absolute Auto 0.08 K/mm3 (0.02-0.50); Eosinophils Percent Auto 1.3 % (1.0-6.0); Hematocrit 34.8 % (35.0-42.0); Hemoglobin 11.8 g/dL (11.7-13.8); Immature Granulocyte Absolute 0.01 K/mm3 (0.00-0.00); Immature Granulocyte Percent A 0.2 % (0.0-0.0); Lymphocytes Absolute Auto 1.03 K/mm3 (1.10-4.50); Lymphocytes Percent Auto 17.1 % (18.0-42.0); Mean Corpuscular HGB Conc 33.9 g/dL (32-36); Mean Corpuscular Hemoglobin 30.3 pg (27.0-31.0); Mean Corpuscular Volume 89.5 fL (78.0-102.0); Monocytes Absolute Auto 0.42 K/mm3 (0.10-0.90); Neutrophils Absolute Auto 4.45 K/mm3 (1.70-7.20); Neutrophils Percent Auto 73.9 % (50.0-70.0); Platelet Count Result 193 K/mm3 (150-420); Red Blood Count 3.89 M/mm3 (4.20-5.40); Red Cell Distribution Width 13.3 % (11.6-14.4)
[2024-10-12 16:14] LABS: Alanine Aminotransferase 22 U/L (14-59); Albumin Level 4.1 g/dL (3.4-5.0); Alkaline Phosphatase 78 U/L (46-116); Anion Gap 9 mmol/L (4-12); Aspartate Amino Transferase 16 U/L (15-37); Bilirubin Direct 0.1 mg/dL (0-0.2); Bilirubin,Total 0.3 mg/dL (0.00-1.00); Blood Urea Nitrogen 20 mg/dL (7-18); Calcium 9.1 mg/dL (8.5-10.1); Carbon Dioxide 27 mmol/L (21-32); Chloride 102 mmol/L (98-108); Estimated Glomerular Filt Rate 59; Glucose 88 mg/dL (70-99); Osmolality Calculated 287 mOsm/kg (285-295); Potassium 4.5 mmol/L (3.5-5.1); Sodium 138 mmol/L (136-145); Total Protein 6.9 g/dL (6.4-8.2)
== END 2024-10-12 23:59 | disposition home or self-care (01) ==
LOC: CHSLAB 15:26
PROVIDERS: PCP Internal Medicine; Visit Provider Internal Medicine Rheumatology
DX: Z51.81 Encounter for therapeutic drug level monitoring (principal); Z79.899 Other long term (current) drug therapy
CPT/HCPCS: 36415; 80048; 80076; 85025

== ENCOUNTER 2024-12-18 09:49 | Outpatient (CLI) | payer MEDICARE, SELFPAY ==
--- NOTE | ~2024-12-18 | US_ITS ---
Renal-Bladder ultrasound Clinical History: Elevated creatinine Technique: Real-time sonographic imaging of the kidneys and urinary bladder was performed. Findings: The right kidney measures 9.6 cm in length and the left kidney measures 9.9 cm. There is no hydronephrosis or renal calculus identified. Renal cortical echogenicity is within normal limits. No renal mass lesion is identified. The urinary bladder is partially distended at the time of this exam. No intraluminal echoes are ident ified. No abnormal wall thickening is seen. Impression: Unremarkable ultrasound of the kidneys and urinary bladder. Reviewed, dictated and finalized at location M. Impression: Unremarkable ultrasound of the kidneys and urinary bladder.
--- OUTSIDE RECORDS SUMMARY | 2024-12-18 11:02 | XMS_ITS | Patient Health Summary ---
Author Organization [facility] Address [address] [place] [address] Care Team Providers Care Senior Courtroom Clerk Name Role Phone Eugenia Spear MD Primary Care Provider [phone] Note from [facility] [place],non-owned Affiliates and Associated Physician Practices is amultiple site organization consisting of ambulatory clinics and hospital sitesin [place], [place], [place] and [place]. This disclosure is being madepursuant to the Care Everywhere program and may not contain all information available regarding this patient. Last updated 18.[facility] Allergies No known active allergies Medications * Be aware that medications may not be up to date on this document. Alwaysverify current medications with the patient. * flecainide (TAMBOCOR) 100 MG tablet(Started 06/24/2020) Take 100 mg by mouth 2 times daily currently takes 1/2 tab bid * ELIQUIS 5 MG tablet(Started 11/26/2020) Take 5 mg by mouth 2 times daily * Cholecalciferol 25 MCG (1000 UT) Take 1,000 Units by mouth once daily * dexamethasone sodium phosphate (DECADRON) 0.1 % ophthalmic solution(Started 01/17/2021) Instill into both eyes 2 times daily * predniSONE (DELTASONE) 10 MG tablet(Started 04/24/2021) Take 4 tabs po qday * predniSONE (DELTASONE) 10 MG tablet(Started 08/05/2021) 1 atb po qday for a week and the half a atab po qday * hydroxychloroquine (PLAQUENIL) 200 MG tablet(Started 09/02/2021) TAKE 1 TABLET BY MOUTH TWICE DAILY * predniSONE (DELTASONE) 10 MG tablet(Started 10/16/2021) TAKE 1 TABLET BY MOUTH EVERY DAY Active Problems No known active problems Social History Tobacco Use Types Packs/Day Years Used Date Smoking Tobacco: Never Smokeless Tobacco: Never Alcohol Use Standard Drinks/Week Comments Never 0 (1 standard drink = 0.6 oz pur e alcohol) Sex and Gender Information Value Date Recorded Sex Assigned at Not on file Gender Identity Not on file Sexual Orientation Not on file Last Filed Vital Signs Vital Sign Reading Time Taken Comments Blood Pressure 112/60 08/05/2021 11:33 AM CDT Pulse 98 08/05/2021 11:33 AM CDT Temperature 36.3 C (97.3 F) 08/05/2021 11:33 AM CDT Respiratory Rate 16 07/10/2021 1:51 PM CDT Oxygen Saturation 100% 08/05/2021 11:33 AM CDT Inhaled Oxygen Concentration - - Weight 50.5 kg (111 lb 6.4 oz) 08/05/2021 11:33 AM CDT Height 167.6 cm (5' 6 ) 08/05/2021 11:33 AM CDT Body Mass Index 17.98 08/05/2021 11:33 AM CDT Procedures * ERYTHROCYTE SEDIMENTATION RATE(Performed 08/05/2021) Performed for Rheumatoid arthritis, involving unspecified site, unspecified whether rheumatoid factor present (HCC) * C-REACTIVE PROTEIN(Performed 08/05/2021) Performed for Rheumatoid arthritis, involving unspecified site, unspecified whether rheumatoid factor present (HCC) * COMPREHENSIVE METABOLIC PANEL(Performed 08/05/2021) Performed for Rheumatoid arthritis, involving unspecified site, unspecified whether rheumatoid factor present (HCC) * CBC W AUTO DIFFERENTIAL(Performed 08/05/2021) Performed for Rheumatoid arthritis, involving unspecified site, unspecified whether rheumatoid factor present (HCC) * XR CHEST 2VW(Performed 05/06/2021) Performed for Abnormal laboratory test result * CLEMENCIA STAINING PATTERNS REFLEXED(Performed 05/06/2021) * ANCA VASCULITIS PANEL(Performed 05/06/2021) Performed for Abnormal laboratory test result * ERYTHROCYTE SEDIMENTATION RATE(Performed 05/06/2021) Performed for Abnormal laboratory test result * C-REACTIVE PROTEIN(Performed 05/06/2021) Performed for Abnormal laboratory test result * COMPLEMENT C3 C4 PANEL(Performed 05/06/2021) Performed for Abnormal laboratory test result * DALJIT PANEL COMPREHENSIVE(Performed 05/06/2021) Performed for Abnormal laboratory test result * DALJIT BLOOD SCREEN W/REFLEX TITER(Performed 05/06/2021) Performed for Abnormal laboratory test result * C-REACTIVE PROTEIN(Performed 04/22/2021) Performed for Abnormal laboratory test result * RHEUMATOID FACTOR BLOOD QUANTITATIVE(Performed 04/22/2021) Performed for Abnormal laboratory test result * ERYTHROCYTE SEDIMENTATION RATE(Performed 04/22/2021) Performed for Abnormal laboratory test result * XR KNEE RIGHT 4VW OR MORE(Performed 02/06/2021) Performed for Arthralgia of both lower legs * PROTEIN ELECTROPHORESIS BLOOD(Performed 02/06/2021) Performed for Arthralgia of both lower legs * VITAMIN D 25-HYDROXY(Performed 02/06/2021) Performed for Arthralgia of both lower legs * TSH(Performed 02/06/2021) Performed for Arthralgia of both lower legs * HEPATITIS SCREEN ACUTE(Performed 02/06/2021) Performed for Arthralgia of both lower legs * ALDOLASE(Performed 02/06/2021) Performed for Arthralgia of both lower legs * ERYTHROCYTE SEDIMENTATION RATE(Performed 02/06/2021) Performed for Arthralgia of both lower legs * CYCLIC CITRUL PEPTIDE ANTIBODY IGG/IGA (CCP)(Performed 02/06/2021) Performed for Arthralgia of both lower legs Results * (ABNORMAL) C-REACTIVE PROTEIN (08/05/2021 1:24 PM CDT) Only the most recent of3 resultswithin the time period is included. C-Reactive Protein 1.16(H) <=0.50 mg/dL [facility] ACCOUNT BILL Blood BLOOD SPECIMEN / Unknown 08/05/2021 1:24 PM CDT 08/05/2021 Narrative Resulting Agency Comment Lab Testing performed at: [facility] [address] [place] [id number] Patti Olivas MD LAB - CHEMISTRY PAVEL LEE [facility] ACCOUNT BILL [address] [place] [address] * ERYTHROCYTE SEDIMENTATION RATE (08/05/2021 1:24 PM CDT) Only the most recent of4 resultswithin the time period is included. Erythrocyte Sedimentation Rate Westergren 7 0 - 30 MM/HR [facility] ACCOUNT BILL Blood BLOOD SPECIMEN / Unknown 08/05/2021 1:24 PM CDT 08/05/2021 Narrative Resulting Agency Comment Lab Testing performed at: Counts include 234 beds at the [facility] [address] [place] [address] [address] [place] [id number] Patti Olivas MD LAB - HEMATOLOGY ORD ERABLES [facility] ACCOUNT BILL [address] [place] [address] * (ABNORMAL) CBC WITH DIFFERENTIAL (08/05/2021 1:24 PM CDT) Pathologist [facility] WBC 10.0 4.4 - 10.7 x10E9/L [facility] ACCOUNT BILL RBC 3.82 3.80 - 5.20 x10E12/L [facility] ACCOUNT BILL Hemoglobin 10.8(L) 12.0 - 15.6 gm/dL [facility] ACCOUNT BILL Hematocrit 33.9(L) 35.9 - 45.5 % [facility] ACCOUNT BILL MCV 88.7 80.7 - 98.3 fl [facility] ACCOUNT BILL MCH 28.3 26.7 - 34.0 pg [facility] ACCOUNT BILL MCHC 31.9 30.8 - 35.9 gm/dL [facility] ACCOUNT BILL RDW 19.7(H) 12.1 - 14.9 % [facility] ACCOUNT BILL Platelet Count 252 153 - 416 x10E9/L [facility] ACCOUNT BILL Comment:MPV FL BLOOD ([facility]) 9 .5 fl 9.4-12.9 Granulocytes % 90.4(H) 44.0 - 73.0 % [facility] ACCOUNT BILL Lymphocytes % 5.0(L) 20.0 - 43.0 % [facility] ACCOUNT BILL Monocytes % 3.5(L) 5.0 - 13.0 % [facility] ACCOUNT BILL Eosinophils % 0.2 0.0 - 6.0 % [facility] ACCOUNT BILL Basophils % 0.4 0.0 - 2.0 % [facility] ACCOUNT BILL Granulocytes Absolute 9.03(H) 2.01 - 7.14 x10E9/L [facility] ACCOUNT BILL Lymphocytes Absolute 0.50(L) 1.07 - 3.94 x10E9/L [facility] ACCOUNT BILL Monocytes Absolute 0.35 0.26 - 1.07 x10E9/L [facility] ACCOUNT BILL Eosinophils Absolute 0.02 0 - 0.47 x10E9/L [facility] ACCOUNT BILL Basophils Absolute 0.04 0 - 0.08 x10E9/L [facility] ACCOUNT BILL Immature Granulocytes 0.5 0 - 1 % [facility] ACCOUNT BILL Immature Granulocytes Absolute 0.05 0.00 - 0.06 x10E9/L [facility] ACCOUNT BILL nRBC 0 /100 WBC [facility] ACCOUNT BILL Blood BLOOD SPECIMEN / Unknown 08/05/2021 1:24 PM CDT 08/05/2021 Narrative Resulting Agency Comment Lab Testing performed at: Counts include 234 beds at the [facility] [id number] [place] [address] [place] [id number] Patti Olivas MD LAB - HEMATOLOGY ORD ERABLES [facility] ACCOUNT BILL [address] [place] [address] * (ABNORMAL) COMPREHENSIVE METABOLIC PANEL (08/05/2021 1:24 PM CDT) Glucose 97 70 - 105 mg/dL [facility] ACCOUNT BILL BUN 15 9.8 - 20.1 mg/dL [facility] ACCOUNT BILL Creatinine 0.76 0.57 - 1.11 mg/dL [facility] ACCOUNT BILL eGFR by MDRD >60 mL/min/1.7 3m2 [facility] ACCOUNT BILL eGFR by MDRD >60 mL/min/1.7 3m2 [facility] ACCOUNT BILL Sodium 134(L) 136 - 145 mmol/L [facility] ACCOUNT BILL Potassium 5.0 3.5 - 5.1 mmol/L [facility] ACCOUNT BILL Chloride 100 98 - 107 mmol/L [facility] ACCOUNT BILL CO2 26 23 - 31 mmol/L [facility] ACCOUNT BILL Calcium 9.5 8.4 - 10.4 mg/dL [facility] ACCOUNT BILL Protein Total 7.0 6.4 - 8.3 gm/dL [facility] ACCOUNT BILL Albumin 4.2 3.2 - 4.6 gm/dL [facility] ACCOUNT BILL Bilirubin Total 0.4 0.2 - 1.2 mg/dL [facility] ACCOUNT BILL Alkaline Phosphatase 61 40 - 150 U/L [facility] ACCOUNT BILL AST 14 5 - 34 U/L [facility] ACCOUNT BILL ALT 15 0 - 61 U/L [facility] ACCOUNT BILL Blood BLOOD SPECIMEN / Unknown 08/05/2021 1:24 PM CDT 08/05/2021 Narrative Resulting Agency Comment Lab Testing performed at: [facility] [address] [place] [id number] Patti Olivas MD LAB - CHEMISTRY PAVEL LEE [facility] ACCOUNT BILL [address] [place] [address] * XR CHEST 2VW (05/06/2021 1:14 PM CDT) Anatomical Region Laterality Modality Chest Radiographic Josiane ging 05/06/2021 3:03 PM CDT Impressions 05/06/2021 3:11 PM CDT CARDIOMEGALY. HYPERINFLATED LUNG NELSON. Edited by Nany Mancuso on 05/06/2021 3:04 PM *Reading Radiologist: Esvin Yuen on 05/06/2021 at 3:11 PM Narrative 05/06/2021 3:11 PM CDT CHEST 2 VIEWS INDICATION: Shortness of breath. FINDINGS: Two views of the chest without prior for comparison show mild hyperinflated lung nelson bilaterally. There is no consolidation, pleural effusion, or pneumothorax. The heart size is enlarged. Procedure Note Esvin Yuen MD - 05/06/2021 CHEST 2 VIEWS INDICATION: Shortness of breath. FINDINGS: Two views of the chest without prior for comparison show mild hyperinflated lung nelson bilaterally. There is no consolidation, pleural effusion, or pneumothorax. The heart size is enlarged. IMPRESSION CARDIOMEGALY. HYPERINFLATED LUNG NELSON. Edited by Nany Mancuso on 05/06/2021 3:04 PM *Reading Radiologist: Esvin Yuen on 05/06/2021 at 3:11 PM Patti Olivas MD DIAGNOSTIC IMAGING O RDERABLES * (ABNORMAL) CLEMENCIA STAINING PATTERNS REFLEXED (05/06/2021 12:56 PM CDT) Nucleolar Pattern 1:80(A) <1:80 [facility] ACCOUNT BILL Comment: Methodology: Indirect Immunofluorescence Assay (IFA) utilizi Hep-2-Gamma cells. FASTING 05/06/2021 12:5 6 PM CDT 05/06/2021 Narrative Resulting Agency Comment Lab Testing performed at: [address] [id number] Patti Olivas MD LAB - PATHOLOGY/CYTO LOGY ORDERABLES [facility] ACCOUNT BILL [address] [place] [address] * DALJIT PANEL COMPREHENSIVE (05/06/2021 12:56 PM CDT) Anti-dsDNA Quantitative 2 0 - 9 IU/mL [facility] ACCOUNT BILL Comment: Negative <5 Equivocal 5 - 9 Positive >9 HEALTH PROMOTION SPECIALIST Antibody 0.3 0.0 - 0.9 AI [facility] ACCOUNT BILL Boyd (MARY) Antibody <0.2 0.0 - 0.9 AI [facility] ACCOUNT BILL Antiscleroderma-70 Antibody 0.9 0.0 - 0.9 AI [facility] ACCOUNT BILL Sjogren's Antibodies (SSA) <0.2 0.0 - 0.9 AI [facility] ACCOUNT BILL Sjogren's Antibodies (SSB) <0.2 0.0 - 0.9 AI [facility] ACCOUNT BILL Antichromatin Antibodies <0.2 0.0 - 0.9 AI [facility] ACCOUNT BILL Mariel-1 Antibody <0.2 0.0 - 0.9 AI [facility] ACCOUNT BILL Centromere B Antibody <0.2 0.0 - 0.9 AI [facility] ACCOUNT BILL See Below [facility] ACCOUNT BILL Comment: Autoantibody Disease Association Condition Frequency --------- Antinuclear Antibody, SLE, mixed connective Direct (DALJIT-D) tissue diseases --------- dsDNA SLE 40 - 60% --------- Chromatin Drug induced SLE 90% SLE 48 - 97% --------- SSA (Ro) SLE 25 - 35% Sjogren's Syndrome 40 - 70% Lupus 100% --------- SSB (La) SLE 10% Sjogren's Syndrome 30% --------- Sm (anti-Boyd) SLE 15 - 30% --------- HEALTH PROMOTION SPECIALIST Mixed Connective Tissue Disease 95% (U1 nRNP, SLE 30 - 50% anti-ribonucleoprotein) Polymyositis and/or Dermatomyositis 20% --------- Scl-70 (antiDNA Scleroderma (diffuse) 20 - 35% topoisomerase) Crest 13% --------- Mariel-1 Polymyositis and/or Dermatomyositis 20 - 40% --------- Centromere B Scleroderma - Crest variant 80% FASTING Blood BLOOD SPECIMEN / Unknown 05/06/2021 12:56 PM CDT 05/06/2021 Narrative Resulting Agency Comment [facility]: [facility] [address] [id number] Patti Olivas MD LAB - SEROLOGY ORDER ROSITA [facility] ACCOUNT BILL [address] [place] [address] * ANCA VASCULITIS PANEL (05/06/2021 12:56 PM CDT) Anti-myeloperoxid ase (MPO) Antibody <9.0 0.0 - 9.0 U/mL [facility] ACCOUNT BILL Anti-proteinase 3 (LA-3) Abs <3.5 0.0 - 3.5 U/mL [facility] ACCOUNT BILL Cytoplasmic (C-ANCA) <1:20 Neg:<1:20 titer [facility] ACCOUNT BILL p-ANCA Titer <1:20 Neg:<1:20 titer [facility] ACCOUNT BILL Comment: The presence of positive fluorescence exhibiting P-ANCA or C-ANCA patterns alone is not specific for the diagnosis of Tod's Granulomatosis (WG) or microscopic polyangiitis. Decisions about treatment should not be based solely on ANCA IFA results. The International ANCA Group Consensus recommends follow up testing of positive sera with both LA-3 and MPO-ANCA enzyme immunoassays. As many as 5% serum samples are positive only by EIA. Ref. AM J Clin Pathol 1999;111:507-513. Atypical p-ANCA Titer <1:20 Neg:<1:20 titer [facility] ACCOUNT BILL Comment: The atypical pANCA pattern has been observed in a significant percentage of patients with ulcerative colitis, primary sclerosing cholangitis and autoimmune hepatitis. FASTING Blood BLOOD SPECIMEN / Unknown 05/06/2021 12:56 PM CDT 05/06/2021 Narrative Resulting Agency Comment Lab Testing performed at: [address] [id number] Patti Olivas MD LAB - CHEMISTRY PAVEL LEE Performing Organization Address City/[facility]/ZIP Co de Phone Number [facility] ACCOUNT BILL [address] [place] [address] * (ABNORMAL) DALJIT BLOOD SCREEN W/REFLEX TITER (05/06/2021 12:56 PM CDT) Pathologist [facility] DALJIT Positive (A) Negative [facility] ACCOUNT BILL Comment: Methodology: Indirect Immunofluorescence Assay (IFA) utili Hep-2-Gamma cells. FASTING Blood BLOOD SPECIMEN / Unknown 05/06/2021 12:56 PM CDT 05/06/2021 Narrative Resulting Agency Comment Lab Testing performed at: [facility] [address] [facility] [id number] Patti Olivas MD LAB - CHEMISTRY PAVEL LEE [facility] ACCOUNT BILL [address] [place] [address] * COMPLEMENT C3 C4 PANEL (05/06/2021 12:56 PM CDT) Complement C3 137 82 - 167 mg/dL [facility] ACCOUNT BILL Complement C4 21 12 - 38 mg/dL [facility] ACCOUNT BILL Comment:FASTING Blood BLOOD SPECIMEN / Unknown 05/06/2021 12:56 PM CDT 05/06/2021 Narrative Resulting Agency Comment Lab Testing performed at: [facility] [address] [id number] Patti Olivas MD LAB - CHEMISTRY PAVEL LEE Performing Organization Address [facility] Co de Phone Number [facility] ACCOUNT BILL [address] [place] [address] * (ABNORMAL) RHEUMATOID FACTOR BLOOD QUANTITATIVE (04/22/2021 1:33 PM CDT) Rheumatoid Factor 33.9(H) 0.0 - 13.9 IU/mL [facility] ACCOUNT BILL Blood BLOOD SPECIMEN / Unknown 04/22/2021 1:33 PM CDT 04/22/2021 Narrative Resulting Agency Comment Lab Testing performed at: [facility] [address] [address] [id number] Patti Olivas MD LAB - CHEMISTRY PAVEL LEE Performing Organization Address [facility] de Phone Number [facility] ACCOUNT BILL [address] [place] [address] * XR KNEE 4+ VW RIGHT (02/06/2021 12:33 PM CDT) Anatomical Region Laterality Modality Lower Extremity Radiographic Josiane ging 02/06/2021 12:4 6 PM CDT Narrative 02/06/2021 12:52 PM CDT 4 views right knee Indication: Right knee pain Findings: There is no displaced fracture or dislocation. There is no osseous destruction. There is tricompartmental joint space narrowing. *Reading Radiologist: Luca Keenan on 02/06/2021 at 12:52 PM Procedure Note Luca Keenan MD - 02/06/2021 4 views right knee Indication: Right knee pain Findings: There is no displaced fracture or dislocation. There is no osseous destruction. There is tricompartmental joint space narrowing. *Reading Radiologist: Luca Keenan on 02/06/2021 at 12:52 PM Patti Olivas MD DIAGNOSTIC IMAGING O RDERABLES * CYCLIC CITRUL PEPTIDE ANTIBODY IGG/IGA (CCP) (02/06/2021 12:02 PM CDT) CCP Antibodies IgG/IgA 5 0 - 19 units [facility] ACCOUNT BILL Comment: Negative <20 Weak positive 20 - 39 Moderate positive 40 - 59 Strong positive >59 Blood BLOOD SPECIMEN / Unknown 02/06/2021 12:02 PM CDT 02/06/2021 Narrative Resulting Agency Comment Lab Testing performed at: [facility] [address] [id number] Patti Olivas MD LAB - SEROLOGY ORDER ROSITA [facility] ACCOUNT BILL [address] [place] [address] * VITAMIN D 25-HYDROXY (02/06/2021 12:02 PM CDT) Pathologist [facility] Vitamin D, 25 Hydroxy 48.5 30 - 100 ng/mL [facility] ACCOUNT BILL Comment: Vitamin D Status: Deficiency <20 ng/mL Insufficiency 20-30 ng/mL Sufficiency 30-100 ng/mL Toxicity >100 ng/mL Blood BLOOD SPECIMEN / Unknown 02/06/2021 12:02 PM CDT 02/06/2021 Narrative Resulting Agency Comment Lab Testing performed [facility]: [facility] [address] [place] [id number] Patti Olivas MD LAB - CHEMISTRY ORDE RABJEREMY [facility] ACCOUNT BILL [address] [place] [address] * ALDOLASE (02/06/2021 12:02 PM CDT) Pathologist [facility] Aldolase 4.7 3.3 - 10.3 U/L [facility] ACCOUNT BILL Blood BLOOD SPECIMEN / Unknown 02/06/2021 12:02 PM CDT 02/06/2021 Narrative Resulting Agency Comment Lab Testing performed at: [facility] [address] [id number] Patti Olivas MD LAB - CHEMISTRY PAVEL LEE Performing Organization Address City/[facility] Co de Phone Number [facility] ACCOUNT BILL [address] [place] [address] * TSH (02/06/2021 12:02 PM CDT) Pathologist [facility] TSH 0.8110 0.35 - 4.94 uIU/mL [facility] ACCOUNT BILL Blood BLOOD SPECIMEN / Unknown 02/06/2021 12:02 PM CDT 02/06/2021 Narrative Resulting Agency Comment Lab Testing performed at: Counts include 234 beds at the [facility] [address] [place] [phone] Patti Olivas MD LAB - CHEMISTRY PAVEL LEE Performing Organization Address [facility] de Phone Number [facility] ACCOUNT BILL [address] [place] [address] * (ABNORMAL) PROTEIN ELECTROPHORESIS BLOOD (02/06/2021 12:02 PM CDT) Pathologist [facility] Protein Total 6.8 6.0 - 8.5 g/dL [facility] ACCOUNT BILL Albumin 2.8(L) 2.9 - 4.4 g/dL [facility] ACCOUNT BILL Alpha-1 Globulin 0.5(H) 0.0 - 0.4 g/dL [facility] ACCOUNT BILL Hmeep-7-Xiuztorg 1.4(H) 0.4 - 1.0 g/dL [facility] ACCOUNT BILL Beta-Globulin 0.9 0.7 - 1.3 g/dL [facility] ACCOUNT BILL Gamma Globulin 1.2 0.4 - 1.8 g/dL [facility] ACCOUNT BILL M-Julio Cesar Not Observed Not Observed g/dL [facility] ACCOUNT BILL Globulin Total 4.0(H) 2.2 - 3.9 g/dL [facility] ACCOUNT BILL Albumin/Globulin Ratio 0.7 0.7 - 1.7 [facility] ACCOUNT BILL Please Note [facility] ACCOUNT BILL Comment: Protein electrophoresis scan will follow via computer, mail, or learning support resource room teacher delivery. P E Interpretation, S [facility] ACCOUNT BILL Comment: The SPE pattern demonstrates elevation of regions containing acute phase proteins suggesting an acute/subacute inflammatory response. Some conditions in which this pattern has been observed include: bacterial, viral or parasitic infection; mechanical, physical or chemical trauma; and cardiac failure. The gamma globulin region is unremarkable and evidence of monoclonal protein is not apparent. Blood BLOOD SPECIMEN / Unknown 02/06/2021 12:02 PM CDT 02/06/2021 Narrative Resulting Agency Comment Lab Testing performed at: [facility] [place] [address] [address] [id number] Patti Olivas MD LAB - CHEMISTRY PAVEL LEE Performing Organization Address [facility] de Phone Number [facility] ACCOUNT BILL [address] [place] [address] * HEPATITIS SCREEN ACUTE (02/06/2021 12:02 PM CDT) Hepatitis A Virus Antibody IgM Non Reactive Non Reactive [facility] ACCOUNT BILL Hepatitis B Virus Surface Antigen Non Reactive Non Reactive [facility] ACCOUNT BILL Hepatitis B Core Virus Antibody IgM Non Reactive Non Reactive [facility] ACCOUNT BILL Hepatitis C Antibody Non Reactive Non Reactive [facility] ACCOUNT BILL Comment: Non Reactive - Antibodies to Hepatitis C virus (HCV) were no t detected, result does not exclude early acute HCV infection. Blood BLOOD SPECIMEN / Unknown 02/06/2021 12:02 PM CDT 02/06/2021 Narrative Resulting Agency Comment Lab Testing performed at: [address] [place] [id number] Patti Olivas MD LAB - CHEMISTRY PAVEL LEE Performing Organization Address City/[facility] de Phone Number [facility] ACCOUNT BILL [address] [place] [address] Care Teams Senior Courtroom Clerk Relationship Specialty Start Date End Date Eugenia Spear MD PCP - General Internal Medicine 02/06/21
--- OUTSIDE RECORDS SUMMARY | 2024-12-18 11:02 | XMS_ITS | Encounter Summary ---
Author Organization [facility] Address [address] [place] [address] Care Team Providers Care Weather Stripper Name Role Phone Eugenia Spear MD Primary Care Provider [phone] Corey Mckeon MD Unavailable Unavailabl e Beck Gutierrez PA-C Unavailable João Vickers MD Unavailable Unavailable Encounter Details Date Type Department Care Team (Late st Contact Info) Description 01/26/2019 Abstract [facility] [address] [place] [phone] Beck Gutierrez PA-C [address] [place] [address] Social History Tobacco Use Types Packs/Day Years Used Date Smoking Tobacco: Never Smokeless Tobacco: Never Alcohol Use Standard Drinks/Week Comments No 0 (1 standard drink = 0.6 oz pur e alcohol) Comments Unknown Sex and Gender Information Value Date Recorded Sex Assigned at Not on file Legal Sex Female 3:25 AM CDT Gender Identity Not on file Sexual Orientation Not on file Occupation Industry Job Start Date Job End Date Not on file Not on file Not on file Not on file documented as of this encounter Plan of Treatment Not on file documented as of this encounter Procedures Procedure Name Priority Date/Time Associated Diagnosis Comments CMP (ABSTRACTED LAB) Routine 01/18/2019 LIPID PANEL Routine 01/18/2019 CBC, MANUAL DIFF Routine 01/18/2019 documented in this encounter Results * CBC, MANUAL DIFF (01/18/2019) WBC 4.7 RBC 4.15 HGB 12.3 HCT 35.9 MCV 86.5 MCH 29.6 MCHC 34.3 RDW 12.9 PLT 220 MPV 10.6 NEUTROPHILS % 712 LYMPHOCYTES % 21.2 MONOCYTES % 6.4 EOSINOPHILS % 0.6 BASOPHILS % 0.6 ABS. NEUTROPHILS 3,346 ABS. LYMPHOCYTES 996 ABS. MONOCYTES 301 ABS. EOSINOPHILS 28 ABS. BASOPHILS 28 01/18/2019 Result Gisela Spear MD LABORATORY Final Result * (ABNORMAL) CMP (ABSTRACTED LAB) (01/18/2019) SODIUM S/P/B 136 POTASSIUM S/P/B 4.2 CHLORIDE S/P/B 105 CO2 21 BUN 13 CREATININE S/P/B 0.68 0.5 - 1.0 EGFR AFR. AMER. 99(A) <=90 EGFR NON-AFR. AMER. 88 <=90 CALCIUM S/P/B 9.7 GLUCOSE 94 mg/dL TOTAL PROTEIN S/P/B 6.8 ALBUMIN S/P/B 4.4 3.5 - 5.0 AST 17 ALT 13 ALKALINE PHOSPHATASE S/P/B 52 BILIRUBIN TOTAL S/P/B 0.6 01/18/2019 Result Gisela Spear MD LAB-OUTSIDE/ABSTRACTED Final Result * LIPID PANEL (01/18/2019) CHOLESTEROL 199 HDL 57 TRIGLYCERIDES 86 NON HDL CHOLESTEROL 142 CHOL/HDL RATIO 3.5 LDL (CALCULATED) 123 01/18/2019 Result Gisela Spear MD LABORATORY Final Result documented in this encounter Visit Diagnoses Not on filedocumented in this encounter Care Teams Weather Stripper Relationship Specialty Start Date End Date Eugenia Spear MD [address] [place] [address] PCP - General INTERNAL MEDICINE 12/30/16 Corey Mckeon MD [address] [place] [address] CARDIOVASCULAR DISEASE 12/30/16 Beck Gutierrez PA-C [address] [place] [address] Electrophysiology 02/11/17 João Vickers MD [address] [place] [address] EP Auto Body Detailer CLINICAL CARDIAC ELECTROPHYSIOLOGY 03/23/17 documented as of this encounter
--- OUTSIDE RECORDS SUMMARY | 2024-12-18 11:02 | XMS_ITS | Encounter Summary ---
Author Organization [facility] Address [address] [place] [address] Care Team Providers Care Rag Cutting Machine Tender Name Role Phone Eugenia Spear MD Primary Care Provider [phone] Corey Mckeon MD Unavailable UnavailBeck Coto PA-C Unavailable [phone] João Vickers MD Unavailable Unavailable Encounter Details Date Type Department Care Team (Late st Contact Info) Description 12/08/2012 [facility] [address] [id number] Corey Mckeon MD Social History Tobacco Use Types Packs/Day Years Used Date Smoking Tobacco: Never Alcohol Use Standard Drinks/Week Comments No 0 (1 standard drink = 0.6 oz pur e alcohol) Comments Unknown Sex and Gender Information Value Date Recorded Sex Assigned at Not on file Legal Sex Female 3:25 AM CDT Gender Identity Not on file Sexual Orientation Not on file documented as of this encounter Plan of Treatment Not on file documented as of this encounter Visit Diagnoses Not on filedocumented in this encounter Care Teams Rag Cutting Machine Tender Relationship Specialty Start Date End Date Eugenia Spear MD [address] [place] [address] PCP - General INTERNAL MEDICINE 12/30/16 Corey Mckeon MD [address] [place] [address] CARDIOVASCULAR DISEASE 12/30/16 Beck Gutierrez PA-C [address] [place] [id number] Electrophysiology 02/11/17 João Vickers MD [address] [place] [address] EP Carburetor Rebuilder CLINICAL CARDIAC ELECTROPHYSIOLOGY 03/23/17 documented as of this encounter
--- OUTSIDE RECORDS SUMMARY | 2024-12-18 11:02 | XMS_ITS | Clinical Summary ---
Author Organization [facility] Address [address] [place] [address] Care Team Providers Care Aco Coordinator Name Role Phone Eugenia Spear MD Primary Care Provider [phone] Corey Mckeon MD Unavailable Unavailabl Beck Kirkland PA-C Unavailable [phone] João Vickers MD Unavailable Unavailable Allergies No known active allergies Medications multivitamin tablet Take 1 tablet by mouth daily. Active Cholecalciferol (VITAMIN D) 1000 UNIT tablet Take 1,000 Units by mouth daily. Active fluorouracil 5 % cream 02/22/2020 Active ELIQUIS 5 MG tablet TAKE 1 TABLET BY MOUTH TWICE DAILY 180 tablet 3 01/27/2021 Active FLECAINIDE 100 MG tablet TAKE ONE-HALF TABLET BY MOUTH TWICE DAILY 90 tablet 3 10/18/2021 Active Active Problems Problem Noted Date Diagnosed Date Encounter for monitoring flecainide therapy 02/02 Anticoagulant long-term use 02/27/2021 Anemia, unspecified type 02/27/2021 SVT (supraventricular tachycardia) ([facility]) HLD (hyperlipidemia) 01/31/2017 Atypical atrial flutter ([facility]) 2016 Family History Relation Status Comments Brother 1 Alive Brother 2 Alive Hyperlipidemia,H ypertension Brother 3 Father (Age 91) Mother (Age 93) Social History Tobacco Use Types Packs/Day Years [...] file Not on file Not on file Last Filed Vital Signs Vital Sign Reading Time Taken Comments Blood Pressure 118/62 02/27/2021 10:55 AM CDT Pulse 104 02/27/2021 10:55 AM CDT Temperature - - Respiratory Rate 16 02/27/2021 10:5 5 AM CDT Oxygen Saturation 99% 01/01/2017 2:52 PM CDT Inhaled Oxygen Concentration - - Weight 52.5 kg (115 lb 12.8 oz) 021 10:55 AM CDT Height 165.1 cm (5' 5 ) 02/27/2021 10:5 5 AM CDT Body Mass Index 19.27 02/27/2021 10:55 AM CDT Plan of Treatment Health Maintenance Due Date Last Done Comments DTaP, Tdap and Td Vaccines ( 1 - Tdap) 1962 Zoster Vaccines (1 of 2) 1993 Annual Medicare Wellness Visit 02/09/2008 Dexa Scan (General) 02/09/2008 RSV Immunization or 60+ Years (1 - 1-dose 75+ series) 2018 Pneumococcal Vaccine: 65+ Ye ars (2 of 2 - PPSV23 or PCV20) 03/24/2018 03/24/2017 COVID-19 Vaccine ( - 2023-2 5 season) 2024 Influenza Adult (#1) 2024 Meningococcal B Vaccine Aged Out No l onger eligible based on patient's age to complete this topic Meningococcal Vaccine Aged Out No carrol auzl eligible based on patient's age to complete this topic RSV Immunizations Under 20 Months Aged Out No longer eligible based on patient's age to complete this topic Insurance [facility] [address] Care Teams Aco Coordinator Relationship Specialty Start Date End Date Eugenia Spear MD [address] [place] [address] PCP - General INTERNAL MEDICINE 12/30/16 Corey Mckeon MD [address] [place] [address] CARDIOVASCULAR DISEASE 12/30/16 Beck Gutierrez PA-C [address] [place] [address] Electrophysiology 02/11/17 João Vickers MD [address] [place] [phone] EP Decision Support Manager CLINICAL CARDIAC ELECTROPHYSIOLOGY 03/23/17
--- OUTSIDE RECORDS SUMMARY | 2024-12-18 11:02 | XMS_ITS | Referral Summary ---
Author Organization 4 [facility] Address [address] [place] [address] Care Team Providers Care Director Behavioral Health Name Role Phone Eugenia Spear MD Primary Care Provider [phone] Juancho Mejia MD Unavailable [phone] Allergies No known active allergies Medications cholecalciferol (VITAMIN D-3) 25 mcg (1,000 unit) tablet Take 1 tablet (1,000 Units total) by mouth daily Active methotrexate 2.5 mg tablet Take 3 tablets (7.5 mg total) by mouth every 7 days Active folic acid (FOLVITE) 1 mg tablet Take 1 tablet (1 mg total) by mouth daily Active flecainide (TAMBOCOR) 100 mg tablet TAKE 1 TABLET BY MOUTH TWICE DAILY 180 tablet 3 04/10/2024 Active apixaban (Eliquis) 2.5 mg tablet Take 1 tablet (2.5 mg total) by mouth 2 (two) times a day 180 tablet 3 06/30/2024 5 Active Active Problems Problem Noted Date Diagnosed Date Chronic anticoagulation 03/06/2024 Atrial flutter 11/24/2021 Abnormal EKG 11/24/2021 Encounter for monitoring flecainide therapy 11/05 Immunizations Immunization Administration Dates Next Due Influenza, Quadrivalent, Hig h Dose, Preservative Free, Intrr 07/23/2021 Influenza, Unspecified 06/17/2022 Pneumococcal Conjugate PCV 13 03/24/2017 Pneumococcal Conjugate Pcv20 06/17/2022 Pneumococcal Polysaccharide PPV23 11/24/2012 ZOSTER Recombinant 01/27/2019 Social History Tobacco Use Types Packs/Day Years Used Date Smoking Tobacco: Never Smokeless Tobacco: Never Tobacco Cessation:Counseling Given: Not Answered AUDIT-C Answer Date Recorded Q1: How often do you have a drink containing alc ohol? Never 04/24/2021 Average Number of Drinks Not on file 021 Frequency of Binge Drinking Not on file 04/04 Personal Safety Answer Date Recorded Getting School Help Needed Not on file 10/03 Comments Unknown Sex and Gender Information Value Date Recorded Sex Assigned at Not on file Legal Sex Female 8:53 AM CDT Gender Identity Not on file Sexual Orientation Not on file Last Filed Vital Signs Vital Sign Reading Time Taken Comments Blood Pressure 110/60 03/06/2024 10:52 AM CDT Pulse 86 03/06/2024 10:52 AM CDT Temperature 36.3 C (97.3 F) 10/29/2023 12:50 PM WOOD POLE TREATER Respiratory Rate 20 10/29/2023 12:50 PM WOOD POLE TREATER Oxygen Saturation 97% 03/06/2024 10:52 AM CDT Inhaled Oxygen Concentration - - Weight 58.7 kg (129 lb 4.8 oz) 03/06/2024 10:52 AM CDT Height 167.6 cm (5' 6 ) 03/06/2024 10:52 AM CDT Body Mass Index 20.87 03/06/2024 10:52 AM CDT Plan of Treatment Not on file [place] [address] MEDICARE SOLUTIONS [place] [id number] MEDICARE SOLUTIONS Care Teams Director Behavioral Health Relationship Specialty Start Date End Date Eugenia Spear MD [address] [place] [address] PCP - General 02/03/21 Juancho Mejia MD [address] [place] [address] Medical Oncologist/Hematologis t Hematology and Oncology 10/20/22
--- OUTSIDE RECORDS SUMMARY | 2024-12-18 11:02 | XMS_ITS | Clinical Summary ---
Author Organization 4 [facility] Address [address] [place] [address] Care Team Providers Care Industrial Rehabilitation Consultant Name Role Phone Eugenia Spear MD Primary Care Provider [phone] Juancho Mejia MD Unavailable [phone] Allergies No known active allergies Medications cholecalciferol [...] Pneumococcal Polysaccharide PPV23 11/24/2012 ZOSTER Recombinant 01/27/2019 Surgical History Surgery Date Site/Laterality Comments COLONOSCOPY TOTAL HIP ARTHROPLASTY 12/08/2021 Left Medical History Medical History Date Comments Atrial flutter (HCC) Arthritis Anemia Anemia Family History Medical History Relation Name Comments Lung cancer Brother 3 Relation Name Status Comments Brother 1 Alive Brother 2 (Age 81) Brother 3 (Age 68) Father (Age 91) Mother (Age 93) Social [...] on file Sexual Orientation Not on file Obstetrics History Last Filed Vital Signs Vital Sign Reading Time Taken Comments Blood Pressure 110/60 03/06/2024 10:52 AM CDT Pulse 86 03/06/2024 10:52 AM CDT Temperature 36.3 C (97.3 F) 10/29/2023 12:50 PM FITTING ROOM CHECKER Respiratory Rate 20 10/29/2023 12:50 PM FITTING ROOM CHECKER Oxygen Saturation 97% 03/06/2024 10:52 AM CDT Inhaled Oxygen Concentration - - Weight 58.7 kg (129 lb 4.8 oz) 03/06/2024 10:52 AM CDT Height 167.6 cm (5' 6 ) 03/06/2024 10:52 AM CDT Body Mass Index 20.87 03/06/2024 10:52 AM CDT Plan of Treatment Health Maintenance Due Date Last Done Comments Depression Screening 1943 Fall Risk Assessment 1945 Osteoporosis Screening-Bone Density Scan 1943 DTaP/Tdap/Td Vaccine (1 - Tdap) 1954 Hepatitis B Screening 1961 Well Visit 65+ 02/09/2008 Zoster Vaccine (2 of 2) 03/24/2019 01/27/2019 Covid-19 Vaccine (3 - Pfizer risk series) 06/28/2021 05/31/2021, 05/10/2021 Influenza Vaccine (#1) 2024 06/17/2022, 2020 Pneumococcal vaccine 65+ Completed 022, 03/24/2017, 11/24/2012 Insurance MED[employer]IONS MED[employer] SOL[employer]IONS MED[employer]ARE SOLUTIONS Care Teams Industrial Rehabilitation Consultant Relationship Specialty Start Date End Date Eugenia Spear MD [address] [place], [place] [id number] PCP - General 02/03/21 Juancho Mejia MD [address] [place] [address] Medical Oncologist/Hematologis t Hematology and Oncology 10/20/22
--- OUTSIDE RECORDS SUMMARY | 2024-12-18 11:02 | XMS_ITS | Referral Summary ---
Author Organization [facility] Address [address] [address] Care Team Providers Care Merchandise Execution Leader Name Role Phone Eugenia Spear MD Primary Care Provider [phone] Source Comments [facility],non-owned Affiliates and Associated Physician Practices is amultiple site organization consisting of ambulatory clinics and hospital sitesin [place], [place], [place] and [place]. This disclosure is being madepursuant to the Care Everywhere program and may not contain all information available regarding this patient. Last updated 18.[facility] Allergies No known active allergies Medications * Be aware that medications may not be up to date on this document. Alwaysverify current medications with the patient. Medication Sig Dispensed Refills Start Date End Date Status flecainide (TAMBOCOR) 100 MG tablet Take 100 mg by mouth 2 times daily currently takes 1/2 tab bid 06/24/2020 Active ELIQUIS 5 MG tablet Take 5 mg by mouth 2 times daily 11/26/2020 Active Cholecalciferol 25 MCG (1000 UT) Take 1,000 Units by mouth once daily Active dexamethasone sodium phosphate (DECADRON) 0.1 % ophthalmic solution Instill into both eyes 2 times daily 01/17/2021 Active predniSONE (DELTASONE) 10 MG tablet Take 4 tabs po qday 120 tablet 04/24/2021 Active Additional Information Patient not taking.Reported on 07/10/2021 predniSONE (DELTASONE) 10 MG tablet 1 atb po qday for a week and the half a atab po qday 90 tablet 08/05/2021 Active hydroxychloroquine (PLAQUENIL) 200 MG tablet TAKE 1 TABLET BY MOUTH TWICE DAILY 180 tablet 09/02/2021 Active predniSONE (DELTASONE) 10 MG tabletIndications:R heumatoid arthritis, involving unspecified site, unspecified whether rheumatoid factor present (HCC) TAKE 1 TABLET BY MOUTH EVERY DAY 30 tablet 10/16/2021 Active Active Problems No known active problems Social [...] Mass Index 17.98 08/05/2021 11:33 AM CDT Plan of Treatment Not on file Care Teams Merchandise Execution Leader Relationship Specialty Start Date End Date Eugenia Spear MD PCP - General Internal Medicine 02/06/21
--- OUTSIDE RECORDS SUMMARY | 2024-12-18 11:02 | XMS_ITS | Clinical Summary ---
Author Organization [facility] Address [address] [place] [address] Care Team Providers Care Maintenance Leader Name Role Phone Eugenia Spear MD Primary Care Provider [phone] Source Comments [facility],non-owned Affiliates and Associated Physician Practices is amultiple site organization consisting of ambulatory clinics and hospital sitesin [place], [place], [place] and [place]. This disclosure is being madepursuant to the Care Everywhere program and may not contain all information available regarding this patient. Last updated 18.[facility] Allergies No known active allergies Medications * [...] 08/05/2021 11:33 AM CDT Plan of Treatment Health Maintenance Due Date Last Done Comments BONE DENSITY TESTING 1945 DTAP/TDAP/TD VACCINES (1 - Tdap) 1962 PNEUMOCOCCAL VACCINE 50+ (1 of 1 - PCV) 1993 ZOSTER VACCINE (1 of 2) 1993 Respiratory Syncytial Virus (RSV) Vaccine Pt: or over 60 yrs (1 - 1-dose 75+ series) 2018 COVID-19 VACCINE ( - 2023-2 5 season) 2024 INFLUENZA VACCINE (#1) 2024 DEPRESSION SCREENING 10/04/2024 MEDICARE AWV CALENDAR YEAR 2024 HEPATITIS B VACCINE Aged Out No longe r eligible based on patient's age to complete this topic HIB VACCINE Aged Out No longer eligi ble based on patient's age to complete this topic HPV VACCINE Aged Out No longer eligi ble based on patient's age to complete this topic MENINGOCOCCAL (Group B) VACC INE SHARED DECISION-MAKING Aged Out No longer eligibl e based on patient's age to complete this topic MENINGOCOCCAL GROUPS A/C/Y/W VACCINE Aged Out No longer eligible b ased on patient's age to complete this topic Care Teams Maintenance Leader Relationship Specialty Start Date End Date Eugenia Spear MD PCP - General Internal Medicine 02/06/21
== END 2024-12-18 09:50 | disposition home or self-care (01) ==
LOC: CHSIMG 09:50
PROVIDERS: PCP Internal Medicine; Visit Provider Internal Medicine Nephrology
DX: R79.89 Other specified abnormal findings of blood chemistry (principal); M06.9 Rheumatoid arthritis, unspecified
CPT/HCPCS: 76775

== ENCOUNTER 2025-01-06 14:15 | Outpatient (CLI) | payer MEDICARE, SELFPAY ==
--- OUTSIDE RECORDS SUMMARY | 2025-01-06 14:18 | XMS_ITS | Clinical Summary ---
Author Organization 4 [facility] Address [address] [place] [address] Care Team Providers Care Vacuum System Tester Name Role Phone Eugenia Spear MD Primary Care Provider [phone] Juancho Mejia MD Unavailable [phone] Allergies No known active allergies Medications cholecalciferol [...] 11/24/2021 Encounter for monitoring flecainide therapy 11/05 Encounters Date Type Department Care Team Description 12/28/[address] [facility] Cardiology [address] [place] [address] Harmony Bai MD from Last 3 Months Immunizations Immunization Administration Dates Next Due Influenza, [...] 36.3 C (97.3 F) 10/29/2023 12:50 PM POST ANESTHESIA NURSE Respiratory Rate 20 10/29/2023 12:50 PM POST ANESTHESIA NURSE Oxygen Saturation 97% 03/06/2024 10:52 AM CDT [...] vaccine 65+ Completed 022, 03/24/2017, 11/24/2012 Insurance [facility] MEDICARE ADVANTAGE Care Teams Vacuum System Tester Relationship Specialty Start Date End Date Eugenia Spear MD [address] [place] [address] PCP - General 02/03/21 Juancho Mejia MD [address] [place] [address] Medical Oncologist/Hematologis t Hematology and Oncology 10/20/22
--- OUTSIDE RECORDS SUMMARY | 2025-01-06 14:18 | XMS_ITS | Referral Summary ---
Author Organization 4 [facility] Address [address] [place] [address] Care Team Providers Care Flat Drier Name Role Phone Eugenia Spear MD Primary Care Provider [phone] Juancho Mejia MD Unavailable [phone] Encounters Date Type Department Care Team Description 12/28/2024 Telephone [facility] Cardiology [address] [place] [address] Harmony Bai MD from Last 3 Months Allergies No known active allergies Medications cholecalciferol [...] 36.3 C (97.3 F) 10/29/2023 12:50 PM MINER ASSISTANT Respiratory Rate 20 10/29/2023 12:50 PM MINER ASSISTANT Oxygen Saturation 97% 03/06/2024 10:52 AM CDT Inhaled Oxygen Concentration - - Weight 58.7 kg (129 lb 4.8 oz) 03/06/2024 10:52 AM CDT Height 167.6 cm (5' 6 ) 03/06/2024 10:52 AM CDT Body Mass Index 20.87 03/06/2024 10:52 AM CDT Plan of Treatment Not on file Insurance [facility] MEDICARE ADVANTAGE [facility] Address: [address] [address] [place] [address] [facility] MED[facility] Address: [address] [address] [place] [address] Care Teams Flat Drier Relationship Specialty Start Date End Date Eugenia Spear MD [address] [place] [address] PCP - General 02/03/21 Juancho Mejia MD [address] [place] [address] Medical Oncologist/Hematologis t Hematology and Oncology 10/20/22
--- OUTSIDE RECORDS SUMMARY | 2025-01-06 14:19 | XMS_ITS | Clinical Summary ---
Author Organization [facility] Address [address] [place] [address] Care Team Providers Care Reinsurance Accountant Name Role Phone Eugenia Spear MD Primary Care Provider [phone] Source Comments [facility],non-owned Affiliates and Associated Physician Practices is amultiple site organization consisting of ambulatory clinics and hospital sitesin [place], [place], [place] and [place]. This disclosure is being madepursuant to the Care Everywhere program and may not contain all information available regarding this patient. Last updated 18.[facility] Allergies No known active allergies Medications * [...] age to complete this topic Care Teams Reinsurance Accountant Relationship Specialty Start Date End Date Eugenia Spear MD PCP - General Internal Medicine 02/06/21
--- OUTSIDE RECORDS SUMMARY | 2025-01-06 14:19 | XMS_ITS | Encounter Summary ---
Author Organization [facility] Address [address] [place] [address] Care Team Providers Care Cider Press Operator Name Role Phone Eugenia Spear MD Primary Care Provider [phone] Corey Mckeon MD Unavailable [phone] Beck Gutierrez PA-C Unavailable [phone] João Vickers MD Unavailable Unavailable Encounter Details Date Type Department Care Team (Late st Contact Info) Description 01/26/2019 Abstract [facility] [address] [place] [address] Beck Gutierrez PA-C [address] [place] [address] Social History Tobacco Use Types Packs/Day Years [...] EOSINOPHILS 28 ABS. BASOPHILS 28 01/18/2019 Result [facility] us Eugenia Spear MD LABORATORY Final Result * (ABNORMAL) [...] on filedocumented in this encounter Care Teams Cider Press Operator Relationship Specialty Start Date End Date Eugenia Spear MD [address] [place] [address] PCP - General INTERNAL MEDICINE 12/30/16 Corey Mckeon MD [address] [place] [address] CARDIOVASCULAR DISEASE 12/30/16 Beck Gutierrez PA-C [address] [place] [address] Electrophysiology 02/11/17 João Vickers MD [address] [place] [phone] EP Facilities Operator CLINICAL CARDIAC ELECTROPHYSIOLOGY 03/23/17 documented as of this encounter
--- OUTSIDE RECORDS SUMMARY | 2025-01-06 14:19 | XMS_ITS | Encounter Summary ---
Author Organization [facility] Address [address] [place] [address] Care Team Providers Care Extension Specialist Name Role Phone Eugenia Spear MD Primary Care Provider [phone] Corey Mckeon MD Unavailable [phone] Beck Gutierrez PA-C Unavailable [phone] João Vickers MD Unavailable Unavailable Encounter Details Date Type Department Care Team (Late st Contact Info) Description 12/08/2012 Abstract [facility] AT [address] [address] Corey Mckeon MD [address] [place] [address] Social History Tobacco Use Types Packs/Day Years [...] on filedocumented in this encounter Care Teams Extension Specialist Relationship Specialty Start Date End Date Eugenia Spear MD [address] [place] [id number] PCP - General INTERNAL MEDICINE 12/30/16 Corey Mckeon MD [address] [place] [address] CARDIOVASCULAR DISEASE 12/30/16 Beck Gutierrez PA-C [address] [place] [address] Electrophysiology 02/11/17 João Vickers MD [address] [place] [address] EP Manager Of Merchandising CLINICAL CARDIAC ELECTROPHYSIOLOGY 03/23/17 documented as of this encounter
--- OUTSIDE RECORDS SUMMARY | 2025-01-06 14:19 | XMS_ITS | Clinical Summary ---
Author Organization [facility] Address [address] [place] [address] Care Team Providers Care Electrical Maintenance Technician Name Role Phone Eugenia Spear MD Primary Care Provider [phone] Corey Mckeon MD Unavailable [phone] Beck Gutierrez PA-C Unavailable [phone] João Vickers MD Unavailable Unavailable Allergies [...] Anemia, unspecified type 02/27/2021 SVT (supraventricular tachycardia) ([facility]) HLD (hyperlipidemia) 01/31/2017 Atypical atrial flutter ([facility]) 2016 Family History Relation Status Comments Brother [...] PPSV23 or PCV20) 03/24/2018 03/24/2017 COVID-19 Vaccine (1 - 2023-2 5 season) 2024 Meningococcal B Vaccine Aged Out No l onger eligible based on patient's age to complete this topic Meningococcal Vaccine Aged Out No carrol azul eligible based on patient's age to complete this topic RSV Immunizations Under 20 Months Aged Out No longer eligible based on patient's age to complete this topic Insurance [facility] Care Teams Electrical Maintenance Technician Relationship Specialty Start Date End Date Eugenia Spear MD [address] [place] [id number] PCP - General INTERNAL MEDICINE 12/30/16 Corey Mckeon MD [address] [place] [phone] CARDIOVASCULAR DISEASE 12/30/16 Beck Gutierrez PA-C [address] [place] [phone] Electrophysiology 02/11/17 João Vickers MD [address] [place] [phone] EP Mime Artist CLINICAL CARDIAC ELECTROPHYSIOLOGY 03/23/17
[2025-01-06 16:04] LABS: Anion Gap 7 mmol/L (4-12); Blood Urea Nitrogen 16 mg/dL (7-18); Carbon Dioxide 27 mmol/L (21-32); Chloride 103 mmol/L (98-108); Estimated Glomerular Filt Rate > 60; Glucose 111 mg/dL (70-99); Osmolality Calculated 286 mOsm/kg (285-295); Potassium 4.3 mmol/L (3.5-5.1); Sodium 137 mmol/L (136-145)
[2025-01-07 04:43] LABS: Creatinine Urine 99.32 mg/dL (40-278); Total Protein Urine Random < 7.0 mg/dL (0.0-11.9); Ur Ttl Prot Creatinine Ratio 0.07 mg/mg (0-0.20)
[2025-01-09 02:58] LABS: Complement C3 111 mg/dL
[2025-01-09 09:49] LABS: Creatinine, Random Urine 94 mg/dL (20-275); Total Prot/Creat ratio mg/mg 0.074 (0.024-0.184); Total Protein/Creatinine Ratio 74 mg/g creat (24-184)
[2025-01-09 19:09] LABS: Albumin 4.6 g/dL (3.8-4.8); Alpha 1 Globulin 0.3 g/dL (0.2-0.3); Alpha 2 Globulin 0.7 g/dL (0.5-0.9); Beta 1 Globulin 0.4 g/dL (0.4-0.6); Gamma Globulin 0.8 g/dL (0.8-1.7)
[2025-01-10 14:14] LABS: Anti Glomerular Basement Memb <1.0 AI
[2025-01-11 08:47] LABS: ANCA Screen NEGATIVE (NEGATIVE)
== END 2025-01-06 14:16 | disposition home or self-care (01) ==
LOC: CHSLAB 14:17
PROVIDERS: PCP Internal Medicine; Visit Provider Internal Medicine Nephrology
DX: R79.89 Other specified abnormal findings of blood chemistry (principal); M06.9 Rheumatoid arthritis, unspecified
CPT/HCPCS: 36415; 80069; 82570; 83520; 84155; 84156; 84165; 84166; 86036; 86038; 86039; 86160; 86225

== ENCOUNTER 2025-03-27 10:12 | Outpatient (CLI) | payer MEDICARE, SELFPAY ==
--- NOTE | 2025-03-27 10:18 | ECHO_ITS ---
Patient Info Name: Enedina Mehta Age: 80 years : 1945 Gender: Female Ht: 66 in Wt: 130 lbs BSA: 1.66 m2 HR: 78 bpm BP: 122 / 72 mmHg Technical Quality: Good Exam Date: 03/27/2025 10:22 AM Patient Status: O Admit Date: 03/27/2025 Exam Type: CA echo doppler color flow Complete two-dimensional, color flow and Doppler transthoracic echocardiogram is performed. Pole Inspector: Miarnda Mccain Attending Provider: Harmony Bai MD Summary 1. Complete two-dimensional, color flow and Doppler transthoracic echocardiogram is performed. 2. Left ventricular chamber dimension is normal. 3. Left ventricular systolic function is normal, estimated at 60-65. 4. The left ventricular diastolic function is abnormal. 5. E/e' 10 is mildly elevated. 6. Left atrial chamber dimension is mildly enlarged. 7. Right atrial chamber dimension is moderately enlarged. 8. There is mild aortic valve regurgitation. 9. There is mild mitral valve regurgitation. 10. There is mild tricuspid valve regurgitation. 11. No pulmonary hypertension, estimated pulmonary arterial systolic pressure is 35 mmHg. 12. There is mild pulmonic regurgitation. Left Ventricle E/e' 10 is mildly elevated. Left ventricular chamber dimension is normal. Left ventricular systolic function is normal, estimated at 60-65. The left ventricular diastolic function is abnormal. Right Ventricle Right ventricular chamber dimension is normal. Right ventricular systolic function is normal and with normal TAPSE 2.3 cm. Left Atria Left atrial chamber dimension is mildly enlarged. Right Atria Right atrial chamber dimension is moderately enlarged. Aortic Valve The aortic valve is trileaflet. There is no aortic valve stenosis. There is mild aortic valve regurgitation. Pulmonic Valve There is mild pulmonic regurgitation. Mitral Valve There is no mitral valve stenosis. There is mild mitral valve regurgitation. Tricuspid Valve There is mild tricuspid valve regurgitation. No pulmonary hypertension, estimated pulmonary arterial systolic pressure is 35 mmHg. Pericardium/Pleural There is no pericardial effusion. Inferior Vena Cava Normal inferior vena cava with >50% collapse upon inspiration consistent with normal right atrial pressure, 5 mmHg. Aorta The aortic root size at the sinus of Valsalva is normal. Left Ventricular Outflow Tract Name Value Normal LVOT 2D LVOT Diameter 1.8 cm LVOT Doppler LVOT Peak Velocity 74 cm/s LVOT Peak Gradient 2 mmHg LVOT Mean Gradient 1 mmHg LVOT VTI 13 cm LVOT VTI/AV VTI Ratio 0.7 LVOT Stroke Volume 33 ml LVOT CO 2.5 l/min LVOT CI 1.5 l/min/m2 Pulmonic Valve Name Value Normal PV Doppler PV Peak Velocity 68 cm/s PV Peak Gradient 2 mmHg Mitral Valve Name Value Normal MV Doppler MV Peak Gradient 5 mmHg MV Mean Gradient 1 mmHg MV Area (Cont Eq VTI) 1.3 cm2 MV Regurgitation Doppler MR Peak Gradient 51 mmHg MV Diastolic Function MV E Peak Velocity 72 cm/s MV A Peak Velocity 56 cm/s MV E/A 1.3 MV Decel Time (PW) 157 ms MV Annular TDI MV E/e' (Septal) 13.0 MV E/e' (Lateral) 8.6 MV E/e' (Average) 10.8 Tricuspid Valve Name Value Normal TV Regurgitation Doppler TR Peak Velocity 275 cm/s TR Peak Gradient 21 mmHg Estimated PAP/RSVP RA Pressure 5 mmHg <=5 PA Systolic Pressure 35 mmHg <36 RV Systolic Pressure 35 mmHg <36 TV Annular TDI TV Lateral [place] s' Velocity 13.2 cm/s >=9.5 Aortic Valve Name Value Normal AV Doppler AV Peak Velocity 102 cm/s AV Peak Gradient 4 mmHg AV Mean Gradient 3 mmHg AV VTI 19 cm AV Area (Cont Eq VTI) 1.8 cm2 >=3.0 AV Area (Cont Eq Carl) 1.8 cm2 AV DI (Carl) 0.72 AV Regurgitation 2D LVOT Area 2.5 cm2 Ventricles Name Value Normal LV Dimensions 2D/MM IVS Diastolic Thickness (2D) 0.8 cm 0.6-1.0 LVID Diastole (2D) 4.1 cm 3.8-5.2 LVIW Diastolic Thickness (2D) 0.8 cm 0.6-0.9 LVID Systole (2D) 2.8 cm 2.2-3.5 LVOT Diameter 1.8 cm LV Mass (2D Cubed) 103.76 g 67.00-162.00 LV Mass Index (2D Cubed) 63 g/m2 43-95 Relative Wall Thickness (2D) 0.41 <=0.42 LV Fractional Shortening/Ejection Fraction 2D/MM LV Fractional Shortening (2D) 32 % 27-45 LV EF (2D Teichholz) 61 % LV Diastolic Volume (4C MOD) 77 ml LV EF (4C MOD) 64 % LV Diastolic Volume (2C MOD) 71 ml LV EF (2C MOD) 69 % LV Diastolic Volume (BP MOD) 75 ml 46-106 LV Diastolic Volume Index (BP MOD) 45 ml/m2 29-61 LV Systolic Volume (BP MOD) 25 ml 14-42 LV Systolic Volume Index (BP MOD) 15 ml/m2 8-24 LV EF (BP MOD) 67 % 54-74 LV Diastolic Length (4C) 7.4 cm LV Systolic Length (4C) 6.0 cm LV Stroke Volume (4C MOD) 49 ml Atria Name Value Normal LA Dimensions LA Volume (4C A-L) 31 ml LA Volume (BP A-L) 36 ml RA Dimensions RA Systolic Major [place] Length (4C) 6.1 cm 2.2-2.8 RA Area (4C) 24.6 cm2 <=18.0 Report Signatures
== END 2025-03-27 10:13 | disposition home or self-care (01) ==
PROVIDERS: PCP Internal Medicine; Visit Provider Internal Medicine Cardiovascular Disease
DX: I48.92 Unspecified atrial flutter (principal); I08.3 Combined rheumatic disorders of mitral, aortic and tricuspid valves; I37.1 Nonrheumatic pulmonary valve insufficiency
CPT/HCPCS: 93306

== ENCOUNTER 2025-05-24 09:29 | Outpatient (CLI) | payer MEDICARE, SELFPAY ==
--- NOTE | ~2025-05-24 | MMUS_ITS ---
EXAMINATION: MM diagnostic solomon BI w chepe, US breast BI limited HISTORY: Left breast pain TECHNIQUE: 3-D tomosynthesis images of the breasts were performed and synthetic 2-D images were generated. CAD analysis was submitted and interpreted. High resolution limited bilateral breast ultrasound was performed. COMPARISON: 01/13/2017 BREAST PARENCHYMAL COMPOSITION:Dense: The breasts are heterogeneously dense, which may obscure small masses. FINDINGS: MAMMOGRAPHIC FINDINGS: No suspicious mass lesion or distortion seen. No suspicious microcalcification seen. ULTRASOUND: 2 simple cysts are present in the right breast subareolar lesion, larger measuring 1 cm in diameter, smaller measuring 0.8 cm in diameter. No abnormality seen in left subareolar region. IMPRESSION: No evidence for malignancy. 2 simple right subareolar breast cysts, as detailed above. BI-RADS Category 2: Benign finding(s). Reviewed, dictated and finalized at [facility]. IMPRESSION: No evidence for malignancy. 2 simple right subareolar breast cysts, as detailed above. BI-RADS Category 2: Benign finding(s).
--- OUTSIDE RECORDS SUMMARY | 2025-05-24 09:58 | XMS_ITS | Clinical Summary ---
Author Organization [facility] Address [address] [place] [address] Care Team Providers Care Panel Wirer Name Role Phone Eugenia Spear MD Primary Care Provider [phone] Corey Mckeon MD Unavailable [phone] Beck Gutierrez PA-C Unavailable [phone] João Vickers MD Unavailable Unavailable Allergies [...] Anemia, unspecified type 02/27/2021 SVT (supraventricular tachycardia) ([facility]) HLD (hyperlipidemia) 01/31/2017 Atypical atrial flutter ([facility]) 2016 Family History Relation Status Comments Brother [...] 10:55 AM CDT Height 165.1 cm (5' 5) 02/27/2021 10:5 5 AM CDT Body Mass Index 19.27 02/27/2021 10:55 AM CDT Plan of Treatment Health Maintenance Due Date Last Done Comments DTaP, Tdap and Td Vaccines ( 1 - Tdap) 1962 Zoster Vaccines (1 of 2) 1993 Annual Medicare Wellness Visit 02/09/2008 Dexa Scan (General) 02/09/2008 RSV Immunization or 60+ Years (1 - 1-dose 75+ series) 2018 Pneumococcal Vaccine: 50+ Ye ars (2 of 2 - PPSV23) 03/24/2018 03/24/2017 COVID-19 Vaccine (1 - 2023-2 5 season) 2024 Meningococcal B Vaccine Aged Out No l onger eligible based on patient's age to complete this topic Meningococcal Vaccine Aged Out No carrol azul eligible based on patient's age to complete this topic RSV Immunizations Under 20 Months Aged Out No longer eligible based on patient's age to complete this topic Insurance [facility] Care Teams Panel Wirer Relationship Specialty Start Date End Date Eugenia Spear MD [address] [place] [address] PCP - General INTERNAL MEDICINE 12/30/16 Corey Mckeon MD [address] [place] [phone] CARDIOVASCULAR DISEASE 12/30/16 Beck Gutierrez PA-C [address] [place] [phone] Electrophysiology 02/11/17 João Vickers MD [address] [place] [phone] EP Rework Machine Operator CLINICAL CARDIAC ELECTROPHYSIOLOGY 03/23/17
--- OUTSIDE RECORDS SUMMARY | 2025-05-24 09:58 | XMS_ITS | Encounter Summary ---
Author Organization [facility] Address [address] [place] [address] Care Team Providers Care Pipe Line Inspector Name Role Phone Eugenia Spear MD Primary Care Provider [phone] Juancho Mejia MD Unavailable [phone] Encounter Details Date Type Department Care Team (Late st Contact Info) Description 03/29/2025 Results Follow-Up [facility] Medical Group Cardiology [address] [place] [phone] [place] [address] [place] [id number] Cardiology Document Scan Social History Tobacco Use Types Packs/Day Years Used Date Smoking Tobacco: Never Smokeless Tobacco: Never AUDIT-C Answer Date Recorded Q1: How often do you have a drink containing alc ohol? Never 04/24/2021 Average Number of Drinks Not on file 021 Frequency of Binge Drinking Not on file 04/04 Comments Unknown Sex and Gender Information Value Date Recorded Sex Assigned at Not on file Legal Sex Female 8:53 AM CDT Gender Identity Not on file Sexual Orientation Not on file documented as of this encounter Plan of Treatment Not on file documented as of this encounter Visit Diagnoses Not on filedocumented in this encounter Care Teams Pipe Line Inspector Relationship Specialty Start Date End Date Eugenia Spear MD [address] [place] [address] PCP - General 02/03/21 Juancho Mejia MD [address] [place], [place] [phone] Medical Oncologist/Hematologis t Hematology and Oncology 10/20/22 documented as of this encounter
--- OUTSIDE RECORDS SUMMARY | 2025-05-24 09:58 | XMS_ITS | Encounter Summary ---
Author Organization [facility] Address [address] [place] [address] Care Team Providers Care Dermatological Surgeon Name Role Phone Eugenia Spear MD Primary Care Provider [phone] Corey Mckeon MD Unavailable [phone] Beck Gutierrez PA-C Unavailable [phone] João Vickers MD Unavailable Unavailable Encounter Details Date Type Department Care Team (Late st Contact Info) Description 01/26/2019 Abstract [facility] [address] [place] [address] Beck Gutierrez PA-C [address] [place] [address] Social History Tobacco Use Types [...] EOSINOPHILS 28 ABS. BASOPHILS 28 01/18/2019 Result [facility] [place] Eugenia Spear MD LABORATORY Final Result [...] on filedocumented in this encounter Care Teams Dermatological Surgeon Relationship Specialty Start Date End Date Eugenia Spear MD [address] [place] [address] PCP - General INTERNAL MEDICINE 12/30/16 Corey Mckeon MD [address] [place] [phone] CARDIOVASCULAR DISEASE 12/30/16 Beck Gutierrez PA-C [address] [place] [address] Electrophysiology 02/11/17 João Vickers MD [address] [place] [phone] EP Balance Wheel Hand Filer CLINICAL CARDIAC ELECTROPHYSIOLOGY 03/23/17 documented as of this encounter
--- OUTSIDE RECORDS SUMMARY | 2025-05-24 09:58 | XMS_ITS | Clinical Summary ---
Author Organization 4 [facility] Address [address] [place] [address] Care Team Providers Care Facilities Administrator Name Role Phone Eugenia Spear MD Primary Care Provider [phone] Juancho Mejia MD Unavailable [phone] Allergies No known active allergies Medications [...] Encounters Date Type Department Care Team Description 03/29/2025 Results Follow-Up [facility] Cardiology [address] [place] [address] [place] [phone] Harmony Bai MD Cardiology Document Scan 03/27/2025 Orders Only [facility] Health Information Management [address] [place] [address] Harmony Bai MD 03/19/2025 Telephone [facility] Cardiology [address] [place] [address] Harmony Bai MD 03/12/2025 Telephone [facility] Cardiology [address] [place] [address] Harmony Bai MD 03/05/2025 9:15 AM CDT Office Visit [facility] Cardiology [address] [place] [address] Harmony Bai MD Atrial flutter, unspecified type (HCC) (Primary Dx); Encounter for monitoring flecainide therapy from Last 3 Months Immunizations Immunization Administration [...] Sign Reading Time Taken Comments Blood Pressure 108/60 03/05/2025 9:00 AM CDT Pulse 70 03/05/2025 9:00 AM CDT Temperature 36.3 C (97.3 F) 10/29/2023 12:50 PM HEALTH CAREERS INSTRUCTOR Respiratory Rate 20 10/29/2023 12:5 0 PM HEALTH CAREERS INSTRUCTOR Oxygen Saturation 96% 03/05/2025 9:00 AM CDT Inhaled Oxygen Concentration - - Weight 58.8 kg (129 lb 11.2 oz) 03/05/2025 9:00 AM CDT Height 167.6 cm (5' 6) 03/05/2025 9:00 AM CDT Body Mass Index 20.93 03/05/2025 9:00 AM CDT Plan of Treatment Health Maintenance Due Date Last Done Comments Depression Screening 1945 Fall Risk Assessment 1945 Osteoporosis Screening-Bone Density Scan 1945 DTaP/Tdap/Td Vaccine (1 - Tdap) 1954 Hepatitis B Screening 1961 Well Visit 65+ 02/09/2008 Zoster Vaccine (2 of 2) 03/24/2019 01/27/2019 Covid-19 Vaccine (3 - Pfizer risk series) 06/28/2021 05/31/2021, 05/10/2021 Influenza Vaccine (#1) 2025 06/17/2022, 2020 Pneumococcal vaccine 65+ Completed 022, 03/24/2017, 11/24/2012 Procedures Procedure Name Priority Date/Time Associated Diagnosis Comments CARDIOLOGY DOCUMENT SCAN 03/27/2025 from Last 3 Months Results * Cardiology Document Scan (03/27/2025) Anatomical Region Laterality Modality Other us Palmereer Rosa Bai MD CV CARDIAC SERVICES PROCEDURES Final Result from Last 3 Months Insurance [facility] MEDICARE ADVANTAGE [place] [id number] [place] [id number] [id number] Care Teams Facilities Administrator Relationship Specialty Start Date End Date Eugenia Spear MD [address] [place] [address] PCP - General 5/3/21 Juancho Mejia MD [address] [place] [address] Medical Oncologist/Hematologis t Hematology and Oncology 10/20/22
--- OUTSIDE RECORDS SUMMARY | 2025-05-24 09:58 | XMS_ITS | Encounter Summary ---
Author Organization [facility] Address [address] [place] [address] Care Team Providers Care Recreation Leader Name Role Phone Eugenia Spear MD Primary Care Provider [phone] Corey Mckeon MD Unavailable [phone] Beck Gutierrez PA-C Unavailable [phone] João Vickers MD Unavailable Unavailable Encounter Details Date Type Department Care Team (Late st Contact Info) Description 12/08/2012 Abstract [facility] AT [address] [address] Corey Mckeon MD [address] [place] [phone] Social History Tobacco Use Types Packs/Day Years [...] on filedocumented in this encounter Care Teams Recreation Leader Relationship Specialty Start Date End Date Eugenia Spear MD [address] [place] [phone] PCP - General INTERNAL MEDICINE 12/30/16 Corey Mckeon MD [address] [place] [address] CARDIOVASCULAR DISEASE 12/30/16 Beck Gutierrez PA-C [address] [place] [address] Electrophysiology 02/11/17 João Vickers MD [address] [place] [address] EP Program Support Specialist CLINICAL CARDIAC ELECTROPHYSIOLOGY 03/23/17 documented as of this encounter
--- OUTSIDE RECORDS SUMMARY | 2025-05-24 09:58 | XMS_ITS | Clinical Summary ---
Author Organization [facility] Address [address] [place] [address] Care Team Providers Care Otc Clerk Name Role Phone Eugenia Spear MD Primary Care Provider [phone] Source Comments [facility],non-owned Affiliates and Associated Physician Practices is amultiple site organization consisting of ambulatory clinics and hospital sitesin [place], [place], [place] and [place]. This disclosure is being madepursuant to the Care Everywhere program and may not contain all information available regarding this patient. Last updated 18.[facility] Allergies No known active allergies Medications * Be aware that medications may not be up to date on this document. Alwaysverify current medications with the patient. flecainide (TAMBOCOR) 100 MG tablet Take 100 mg by mouth 2 times daily currently takes 1/2 tab bid 0 Active ELIQUIS 5 MG tablet Take 5 mg by mouth 2 times daily 1 Active Cholecalciferol 25 MCG (1000 UT) Take 1,000 Units by mouth once daily Active dexamethasone sodium phosphate (DECADRON) 0.1 % ophthalmic solution Instill into both eyes 2 times daily 1 Active predniSONE (DELTASONE) 10 MG tablet Take 4 tabs po qday 120 tablet 1 Active Additional Information Patient not taking.Reported on 07/10/2021 predniSONE (DELTASONE) 10 MG tablet 1 atb po qday for a week and the half a atab po qday 90 tablet 1 Active hydroxychloroqui ne (PLAQUENIL) 200 MG tablet TAKE 1 TABLET BY MOUTH TWICE DAILY 180 tablet 1 Active predniSONE (DELTASONE) 10 MG tabletIndication s:Rheumatoid arthritis, involving unspecified site, unspecified whether rheumatoid factor present (HCC) TAKE 1 TABLET BY MOUTH EVERY DAY 30 tablet 2 Active Active Problems No known active problems Social History Tobacco Use Types Packs/Day Years Used Date Smoking Tobacco: Never Smokeless Tobacco: Never Alcohol Use Standard Drinks/Week Comments Never 0 (1 standard drink = 0.6 oz pur e alcohol) Comments Unknown Sex and Gender Information Value Date Recorded Sex Assigned at Not on file Legal Sex Female 9:59 AM CDT Gender Identity Not on file [...] 11:33 AM CDT Height 167.6 cm (5' 6) 08/05/2021 11:33 AM CDT Body Mass Index [...] VACCINE ( - 2023-2 5 season) 2024 DEPRESSION SCREENING 10/04/2024 INFLUENZA VACCINE (#1) 2025 HEPATITIS B VACCINE Aged Out No longe [...] patient's age to complete this topic Insurance [facility] MANAGED MEDICARE ADV Care Teams Otc Clerk Relationship Specialty Start Date End Date Eugenia Spear MD PCP - General Internal Medicine 02/06/21
== END 2025-05-24 09:30 | disposition home or self-care (01) ==
LOC: CHSIMG 09:30
PROVIDERS: PCP Internal Medicine; Visit Provider Nurse Practitioner Family
DX: N64.4 Mastodynia (principal)
CPT/HCPCS: 76642; 77062; 77066; G0279

== ENCOUNTER 2025-06-25 13:53 | Outpatient (RCR) | payer MEDICARE, SELFPAY ==
[2025-03-29 15:34] LABS: Hematocrit 33.8 % (35.0-42.0); Hemoglobin 11.3 g/dL (11.7-13.8); Immature Granulocyte Percent A 0.4 % (0.0-0.0); Lymphocytes Absolute Auto 1.12 K/mm3 (1.10-4.50); Mean Corpuscular HGB Conc 33.4 g/dL (32-36); Mean Corpuscular Hemoglobin 29.9 pg (27.0-31.0); Mean Corpuscular Volume 89.4 fL (78.0-102.0); Nucleated Red Blood Cells Absolute Auto 0.00 K/mm3 (0.00-0.00); Nucleated Red Blood Cells Perc 0.0 % (0-0.0); Platelet Count Result 215 K/mm3 (150-420); Red Blood Count 3.78 M/mm3 (4.20-5.40); White Blood Count 5.6 K/mm3 (4.8-10.8)
[2025-03-29 15:51] LABS: Alanine Aminotransferase 15 U/L (6-35); Albumin Level 4.4 g/dL (3.5-5.1); Alkaline Phosphatase 59 U/L (38-126); Anion Gap 7 mmol/L (4-12); Aspartate Amino Transferase 24 U/L (14-36); Bilirubin,Total 0.5 mg/dL (0.2-1.3); Blood Urea Nitrogen 20 mg/dL (7-17); Calcium 9.4 mg/dL (8.4-10.2); Carbon Dioxide 23 mmol/L (22-30); Chloride 107 mmol/L (98-107); Estimated Glomerular Filt Rate 59; Glucose 88 mg/dL (65-110); Osmolality Calculated 285 mOsm/kg (285-295); Potassium 4.6 mmol/L (3.4-5.0); Sodium 137 mmol/L (137-145); Total Protein 6.9 g/dL (6.3-8.2)
[2025-06-25 14:04] LABS: Hematocrit 37.1 % (35.0-42.0); Hemoglobin 11.8 g/dL (11.7-13.8); Mean Corpuscular HGB Conc 31.8 g/dL (32-36); Mean Corpuscular Hemoglobin 29.6 pg (27.0-31.0); Mean Corpuscular Volume 93.2 fL (78.0-102.0); Platelet Count Result 197 K/mm3 (150-420); Red Blood Count 3.98 M/mm3 (4.20-5.40); White Blood Count 6.3 K/mm3 (4.8-10.8)
[2025-06-25 14:27] LABS: Alanine Aminotransferase 17 U/L (6-35); Albumin Level 4.9 g/dL (3.5-5.1); Alkaline Phosphatase 68 U/L (38-126); Anion Gap 10 mmol/L (4-12); Aspartate Amino Transferase 25 U/L (14-36); Bilirubin,Total 0.5 mg/dL (0.2-1.3); Blood Urea Nitrogen 19 mg/dL (7-17); Calcium 10.2 mg/dL (8.4-10.2); Carbon Dioxide 26 mmol/L (22-30); Chloride 104 mmol/L (98-107); Estimated Glomerular Filt Rate > 60; Glucose 106 mg/dL (65-110); Osmolality Calculated 292 mOsm/kg (285-295); Potassium 5.1 mmol/L (3.4-5.0); Sodium 140 mmol/L (137-145); Total Protein 8.2 g/dL (6.3-8.2)
== END 2025-06-27 23:59 | disposition home or self-care (01) ==
LOC: CHSLAB 13:53
PROVIDERS: PCP Internal Medicine; Visit Provider Internal Medicine Rheumatology
DX: Z51.81 Encounter for therapeutic drug level monitoring (principal); Z79.01 Long term (current) use of anticoagulants
CPT/HCPCS: 36415; 80048; 80076; 85025; 85027

== ENCOUNTER 2025-09-13 15:19 | Outpatient (CLI) | payer MEDICARE, SELFPAY ==
[2025-09-13 16:21] LABS: Hematocrit 33.8 % (35.0-42.0); Hemoglobin 11.1 g/dL (11.7-13.8); Immature Granulocyte Percent A 0.4 % (0.0-0.0); Lymphocytes Absolute Auto 0.92 K/mm3 (1.10-4.50); Mean Corpuscular HGB Conc 32.8 g/dL (32-36); Mean Corpuscular Hemoglobin 30.2 pg (27.0-31.0); Mean Corpuscular Volume 91.8 fL (78.0-102.0); Nucleated Red Blood Cells Absolute Auto 0.00 K/mm3 (0.00-0.00); Nucleated Red Blood Cells Perc 0.0 % (0-0.0); Platelet Count Result 210 K/mm3 (150-420); Red Blood Count 3.68 M/mm3 (4.20-5.40); White Blood Count 4.9 K/mm3 (4.8-10.8)
[2025-09-13 16:33] LABS: Alanine Aminotransferase 18 U/L (6-35); Albumin Level 4.4 g/dL (3.5-5.1); Alkaline Phosphatase 77 U/L (38-126); Anion Gap 8 mmol/L (4-12); Aspartate Amino Transferase 25 U/L (14-36); Bilirubin,Total 0.2 mg/dL (0.2-1.3); Blood Urea Nitrogen 20 mg/dL (7-17); Calcium 9.4 mg/dL (8.4-10.2); Carbon Dioxide 27 mmol/L (22-30); Chloride 104 mmol/L (98-107); Estimated Glomerular Filt Rate 58; Glucose 118 mg/dL (65-110); Iron 57 ug/dL (37-170); Osmolality Calculated 291 mOsm/kg (285-295); Potassium 4.2 mmol/L (3.4-5.0); Sodium 139 mmol/L (137-145); Total Protein 6.6 g/dL (6.3-8.2)
[2025-09-13 17:08] LABS: Ferritin 170.00 ng/mL (11.1-264)
--- OUTSIDE RECORDS SUMMARY | 2025-09-13 18:23 | XMS_ITS | Encounter Summary ---
Author Organization [facility] Address [address] [place] [address] Care Team Providers Care Environmental Services Floor Tech Name Role Phone Eugenia Spear MD Primary Care Provider [phone] Corey Mckeon MD Unavailable [phone] Beck Gutierrez PA-C Unavailable [phone] João Vickers MD Unavailable Unavailable Encounter Details Date Type Department Care Team (Late st Contact Info) Description 12/08/2012 Abstract [facility] AT [address] [address] Corey Mckeon MD [address] [place] [phone] Social History Tobacco Use Types Packs/Day Years [...] on filedocumented in this encounter Care Teams Environmental Services Floor Tech Relationship Specialty Start Date End Date Eugenia Spear MD [address] [place] [phone] PCP - General INTERNAL MEDICINE 12/30/16 Corey Mckeon MD [address] [place] [address] CARDIOVASCULAR DISEASE 12/30/16 Beck Gutierrez PA-C [address] [place] [address] Electrophysiology 02/11/17 João Vickers MD [address] [place] [address] EP Funeral Prearrangement Counselor CLINICAL CARDIAC ELECTROPHYSIOLOGY 03/23/17 documented as of this encounter
--- OUTSIDE RECORDS SUMMARY | 2025-09-13 18:23 | XMS_ITS | Clinical Summary ---
Author Organization 4 [facility] Address [address] [place] [address] Care Team Providers Care Patient Service Rep Name Role Phone Eugenia Spear MD Primary Care Provider [phone] Juancho Mejia MD Unavailable [phone] Allergies No known active allergies Medications cholecalciferol [...] BY MOUTH TWICE DAILY 180 tablet 3 05/29/2025 Active Eliquis 2.5 mg tablet TAKE 1 TABLET BY MOUTH TWICE DAILY 180 tablet 3 06/15/2025 Active Active Problems Problem Noted Date Diagnosed [...] 36.3 C (97.3 F) 10/29/2023 12:50 PM SOLE ASSESSOR Respiratory Rate 20 10/29/2023 12:5 0 PM SOLE ASSESSOR Oxygen Saturation 96% 03/05/2025 9:00 AM CDT [...] vaccine 65+ Completed 022, 03/24/2017, 11/24/2012 Insurance [facility] MEDICARE ADVANTAGE [facility] MEDICARE ADVANTAGE [facility] MEDICARE ADVANTAGE Care Teams Patient Service Rep Relationship Specialty Start Date End Date Eugenia Spear MD [address] [place] [address] PCP - General 02/03/21 Juancho Mejia MD [address] [place] [address] Medical Oncologist/Hematologis t Hematology and Oncology 10/20/22
--- OUTSIDE RECORDS SUMMARY | 2025-09-13 18:24 | XMS_ITS | Clinical Summary ---
Author Organization [facility] Address [address] [place] [address] Care Team Providers Care Residential Solar Sales Consultant Name Role Phone Eugenia Spear MD Primary Care Provider [phone] Corey Mckeon MD Unavailable [phone] Beck Gutierrez PA-C Unavailable [phone] João Vickers MD Unavailable Unavailable Allergies [...] Anemia, unspecified type 02/27/2021 SVT (supraventricular tachycardia) 01/31/2017 HLD (hyperlipidemia) 01/31/2017 Atypical atrial flutter 01/31/2017 Family History Relation Status Comments Brother 1 [...] 50+ Ye ars (2 of 2 - PCV20 or PCV21) 03/24/2018 03/24/2017 COVID-19 Vaccine ( - 2024-2 6 season) 2025 Influenza Adult (#1) 2025 Hepatitis A Vaccines Aged Out No long er eligible based on patient's age to complete this topic Meningococcal B Vaccine Aged Out No l onger eligible based on patient's age to complete this topic Meningococcal Vaccine Aged Out No carrol azul eligible based on patient's age to complete this topic RSV Immunizations Under 20 Months Aged Out No longer eligible based on patient's age to complete this topic Insurance [employer] MEDICARE [facility] MEDICARE Care Teams Residential Solar Sales Consultant Relationship Specialty Start Date End Date Eugenia Spear MD [address] [place] [address] PCP - General INTERNAL MEDICINE 12/30/16 Corey Mckeon MD [address] [place] [phone] CARDIOVASCULAR DISEASE 12/30/16 Beck Gutierrez PA-C [address] [place] [phone] Electrophysiology 02/11/17 João Vickers MD [address] [place] [address] EP Crm Specialist CLINICAL CARDIAC ELECTROPHYSIOLOGY 03/23/17
--- OUTSIDE RECORDS SUMMARY | 2025-09-13 18:25 | XMS_ITS | Clinical Summary ---
Author Organization [facility] [employer] Address [address] [facility] [place] [address] Care Team Providers Care Library Paraprofessional Name Role Phone Eugenia Spear MD Primary Care Provider [phone] Source Comments [facility],non-owned Affiliates and Associated Physician Practices is amultiple site organization consisting of ambulatory clinics and hospital sitesin [place], [place], [place] and [place]. This disclosure is being madepursuant to the Care Everywhere program and may not contain all information available regarding this patient. Last updated 18.[facility] Allergies No known active allergies Medications * [...] yrs (1 - 1-dose 75+ series) 2018 DEPRESSION SCREENING 10/04/2024 COVID-19 VACCINE ( - 2024-2 6 season) 2025 INFLUENZA VACCINE (#1) 2025 HEPATITIS B VACCINE [...] patient's age to complete this topic Insurance [facility] MANAGED MEDICARE ADV Care Teams Library Paraprofessional Relationship Specialty Start Date End Date Eugenia Spear MD PCP - General Internal Medicine 02/06/21
--- OUTSIDE RECORDS SUMMARY | 2025-09-13 18:25 | XMS_ITS | Encounter Summary ---
Author Organization [facility] Address [address] [place] [address] Care Team Providers Care Shredder Tender Peat Name Role Phone Eugenia Spear MD Primary Care Provider [phone] Corey Mckeon MD Unavailable [phone] Beck Gutierrez PA-C Unavailable [phone] João Vickers MD Unavailable Unavailable Encounter Details Date Type Department Care Team (Late st Contact Info) Description 01/26/2019 Abstract [facility] [address] [place] [address] Beck Gutierrez PA-C [address] [place] [address] Social History Tobacco Use Types [...] EOSINOPHILS 28 ABS. BASOPHILS 28 01/18/2019 Result On License Of [facility] Eugenia Spear MD LABORATORY Final Result [...] on filedocumented in this encounter Care Teams Shredder Tender Peat Relationship Specialty Start Date End Date Eugenia Spear MD [address] [place] [address] PCP - General INTERNAL MEDICINE 12/30/16 Corey Mckeon MD [address] [place] [phone] CARDIOVASCULAR DISEASE 12/30/16 Beck Gutierrez PA-C [address] [place] [address] Electrophysiology 02/11/17 João Vickers MD [address] [place] [id number] EP [employer]creational [employer]ide CLINICAL CARDIAC ELECTROPHYSIOLOGY 03/23/17 documented as of this encounter
== END 2025-09-13 15:20 | disposition home or self-care (01) ==
LOC: CHSLAB 15:23
PROVIDERS: PCP Internal Medicine; Visit Provider Internal Medicine Rheumatology
DX: Z51.81 Encounter for therapeutic drug level monitoring (principal); M05.9 Rheumatoid arthritis with rheumatoid factor, unspecified; D50.9 Iron deficiency anemia, unspecified
CPT/HCPCS: 36415; 80048; 80076; 82728; 83540; 85025